=== PATIENT | female | born 1980 | race Two or more races ===

== ENCOUNTER 2017-10-06 09:27 | Emergency (ER) | payer MEDICAID ==
[~2017-10-06] VITALS: Ht 154.9 cm; Wt 76.7 kg
[~2017-10-06 09:27] MED LIST: IBUPROFEN600 MG ORAL; NKM
--- NOTE | 2017-10-06 11:38 | Emergency Room Report ---
History of Present Illness General Chief Complaint: Pain Source: Patient Present Illness HPI This patient states that she had done her nails and neuts that over the past day has had some swelling and redness around the cuticle of her left ring finger. She is also had some redness of the pad of the finger. She denies fever or chills. She states that it is tender to the touch. She has no other complaints. Allergies: Coded Allergies: No Known Allergies (Unverified , 10/19/15) Patient History Past Medical History: none, see triage record Social History: Denies: smoking, alcohol use, drug use Last Menstrual Period: 09/28/2017 Reviewed Nursing Documentation: PMH: Agreed, PSxH: Agreed Nursing Documentation-PMH Past Medical History: No Stated History Review of Systems All Other Systems: negative except mentioned in HPI Physical Exam Vital Signs Date Time Temp Pulse Resp B/P (MAP) Pulse Ox O2 Delivery O2 Flow Rate FiO2 10/06/17 09:37 98.5 76 16 128/82 97 Room Air 98.4 Sp02 EP Interpretation: reviewed, normal General Appearance: no apparent distress, alert, GCS 15, non-toxic Head: normocephalic, atraumatic Eyes: bilateral eye normal inspection, bilateral eye PERRL ENT: hearing grossly normal, normal pharynx, no angioedema, normal voice Neck: full range of motion, supple/symm/no masses Respiratory: no respiratory distress, no retraction, no accessory muscle use, speaking full sentences Rectal: deferred Musculoskeletal: gait/station normal, normal range of motion, other - L. ring finger with erythema medially with some paronychial fluctuance. Erythema but no fluctuance in finger pad. Neurologic: alert, oriented x3, responsive, motor strength/tone normal, sensory intact, speech normal Psychiatric: judgement/insight normal, memory normal, mood/affect normal, no suicidal/homicidal ideation Skin: well hydrated, other - See MSK exam Procedures Additional Procedure Procedure Narrative Drainage of paronychia left ring finger: The cuticle fold was lifted and incised using a small scissor with expression of purulent discharge. The area was then placed in warm water and irrigated. No complications. Medical Decision Making Diagnostic Impression: Primary Impression: Paronychia ER Course The patient has a small paronychia. The paronychia was drained without complication or incident. See my procedure note. Given the erythema on the finger pad, I will go ahead and give a course of oral antibiotics. There is no evidence of felon at this time. The patient was instructed to follow-up with her primary care physician. The patient was given close return precautions and follow-up instructions. Last Vital Signs Date Time Temp Pulse Resp B/P (MAP) Pulse Ox O2 Delivery O2 Flow Rate FiO2 10/06/17 09:37 98.5 76 16 128/82 97 Room Air 98.4 Status: improved Disposition: HOME, SELF-CARE Condition: Improved Referrals: NON PHYSICIAN (PCP) CHACE MERRITT D.O. Oct 06, 2017 11:38
[2017-10-06] MEDS ORDERED: KEFLEX500 MG ORAL (11:39)
[2017-10-06 12:00] VITALS: BP 119/77
== END 2017-10-06 12:00 | disposition home or self-care (01) ==
LOC: EMR 10:17
DX: L03.012 Cellulitis of left finger (principal)
CPT/HCPCS: 10060; 99283

== ENCOUNTER 2018-09-25 20:49 | Emergency (ER) | payer MEDICAID ==
[~2018-09-25] VITALS: Ht 154.9 cm; Wt 76.2 kg
[~2018-09-25 20:49] MED LIST changes: +BACITRACIN15 GM TOPIC; +BACTRIM DS TAB1 EAC1 ORAL; +KEFLEX500 MG ORAL
--- NOTE | 2018-09-25 21:00 | NUR ---
ED Nurse Note: Patient walk in c/o abcess follow up in vaginal area. Patient had it drained at [facility] 2 days ago. Patient states there is packing in the wound.
[2018-09-25 21:06] VITALS: BP 123/71
[2018-09-25 21:42] VITALS: BP 123/71
--- NOTE | 2018-09-25 21:42 | NUR ---
ER DISCHARGE NOTE: Patient is cleared to be discharged per ERMD, pt is aox4, on room air, with stable vital signs. pt was given dc instructions, pt was able to verbalize understanding, pt id band removed. pt is able to ambulate with steady gait. pt took all belongings.
--- NOTE | 2018-09-25 22:35 | Emergency Room Report ---
History of Present Illness General Chief Complaint: Wound Recheck/Suture Removal Source: Patient Present Illness HPI 38-year-old female presents ED for evaluation. Patient is here for wound check. Status post I and D of Bartholin gland cyst 2 days ago. Had word catheter in place. Is here for wound check. States pain is overall improved. States she is compliant with her antibiotics. Denies fevers or chills. Denies pain. No other aggravating relieving factors. Denies any other associated symptoms Allergies: Coded Allergies: No Known Allergies (Unverified , 10/19/15) Patient History Past Medical History: none Past Surgical History: none - ` Pertinent Family History: none Social History: Denies: smoking, alcohol use, drug use Last Menstrual Period: 09/11/2018 Now: No Immunizations: UTD Reviewed Nursing Documentation: PMH: Agreed; PSxH: Agreed Nursing Documentation-PMH Past Medical History: No Stated History Review of Systems All Other Systems: negative except mentioned in HPI Physical Exam Vital Signs Date Time Temp Pulse Resp B/P (MAP) Pulse Ox O2 Delivery O2 Flow Rate FiO2 09/25/18 20:53 98.6 96 16 123/71 97 Room Air Sp02 EP Interpretation: reviewed, normal General Appearance: no apparent distress, alert, GCS 15, non-toxic Head: normocephalic Eyes: bilateral eye normal inspection, bilateral eye PERRL ENT: normal ENT inspection Neck: normal inspection Respiratory: normal inspection Cardiovascular #1: normal inspection Gastrointestinal: normal inspection Rectal: deferred Genitourinary: no CVA tenderness, other - eyeglass frames polisher present. word catheter not in place. minimal erythema/induration to labial area. no discharge Musculoskeletal: normal inspection Neurologic: alert, oriented x3, responsive, motor strength/tone normal, sensory intact, speech normal Psychiatric: normal inspection Skin: normal inspection Lymphatic: normal inspection Medical Decision Making Diagnostic Impression: Primary Impression: Encounter for wound re-check Additional Impression: Bartholin cyst ER Course Hospital Course 38-year-old F presents to ED for wound check. s/p I&D bartholin gland cyst Clinical course Patient placed on stretcher. Rn Tele present. On exam there appears to be improved erythema induration to the labial area. No fluctuance or discharge. word catheter is not visualized - patient states she noted fell out earlier today Discussed findings with patient. Safe for discharge. Patient follow up. Continue antibiotics. Warm soaks Patient states she has an appointment with her [employer] WORKER for follow-up Diagnosis - encounter for wound re-check, bartholin gland cyst Stable and discharged to home. continue abx as directed. Followup with obgyn. Return to ED if any signs of infection develop Last Vital Signs Date Time Temp Pulse Resp B/P (MAP) Pulse Ox O2 Delivery O2 Flow Rate FiO2 09/25/18 21:42 98.6 96 16 123/71 97 Room Air Status: improved Disposition: HOME, SELF-CARE Condition: Stable Referrals: [facility] DAVE MATHEWS (PCP) Patient Instructions: Bartholin Cyst or Abscess, [id number] Additional Instructions: continue your antibiotics as directed. warm soaks in tub. followup with OBGYN. Rayo Holley MD Sep 25, 2018 22:35
== END 2018-09-25 21:42 | disposition home or self-care (01) ==
LOC: EMR 21:08
DX: Z48.01 Encounter for change or removal of surgical wound dressing (principal); N75.0 Cyst of Bartholin's gland
CPT/HCPCS: 99281

== ENCOUNTER 2019-05-21 19:22 | Emergency (ER) | payer MEDICAID ==
[~2019-05-21] VITALS: Ht 154.9 cm; Wt 75.7 kg
--- NOTE | 2019-05-21 19:34 | NUR ---
ED Nurse Note: pt presents to ED with a boil on top of her head on the R side. it is red and measures about 1.5 cm X 1 cm. pt reports trying to pop it and that white fluid came out of it. pt reports the px being 7/10 when it's at it's worse. the pain radiates to her ears and worsens when she touches it or moves her forehread
[2019-05-21 19:36] VITALS: BP 117/80
--- NOTE | 2019-05-21 19:42 | Emergency Room Report ---
History of Present Illness General Chief Complaint: Skin Rash/Abscess Source: Patient Present Illness HPI 38-year-old female with no symptom past medical history here complaining of pain in her scalp x2 days. Rating the pain 5 out of 10 without radiation denying tingling and numbness. Denies any pus drainage from the affected area. A small cyst is noted on the frontal lobe. No pus drainage is noted. Denies fever and chills, chest pain, shortness of breath, palpitation or other associated symptoms. Patient is up-to-date with tetanus shot. Has not taken medication for symptom relief. Patient is not a diabetic. Allergies: Coded Allergies: No Known Allergies (Unverified , 10/19/15) Patient History Past Medical History: see triage record Past Surgical History: unable to obtain Pertinent Family History: none Last Menstrual Period: 05/18/19 Now: No Immunizations: UTD Reviewed Nursing Documentation: PMH: Agreed; PSxH: Agreed Nursing Documentation-PMH Past Medical History: No Stated History Review of Systems All Other Systems: negative except mentioned in HPI Physical Exam Vital Signs Date Time Temp Pulse Resp B/P (MAP) Pulse Ox O2 Delivery O2 Flow Rate FiO2 05/21/19 19:24 98.8 85 16 117/80 (92) 99 Room Air Sp02 EP Interpretation: reviewed, normal General Appearance: no apparent distress, alert, GCS 15, non-toxic Head: normocephalic, atraumatic, other - Cyst noted on the frontal lobe Eyes: bilateral eye normal inspection, bilateral eye PERRL ENT: hearing grossly normal, normal pharynx, no angioedema, normal voice Neck: full range of motion, supple/symm/no masses Respiratory: chest non-tender, lungs clear, normal breath sounds, no rhonchi, no wheezing, speaking full sentences Cardiovascular #1: regular rate, rhythm, no edema, no murmur, normal capillary refill Gastrointestinal: normal bowel sounds, non tender, soft, non-distended, no guarding, no rebound Genitourinary: no CVA tenderness Musculoskeletal: back normal, gait/station normal, normal range of motion, non- tender Neurologic: alert, oriented x3, responsive, motor strength/tone normal, sensory intact, speech normal Psychiatric: judgement/insight normal, memory normal, mood/affect normal, no suicidal/homicidal ideation Skin: other - cyst frontal lobe Lymphatic: normal inspection, no adenopathy Medical Decision Making PA Attestation Diagnosis and treatment plans were reviewed and discussed with my supervising physician Dr. Rosado Diagnostic Impression: Primary Impression: Scalp cyst ER Course 38-year-old female with no symptom past medical history here complaining of pain in her scalp x2 days. Rating the pain 5 out of 10 without radiation denying tingling and numbness. Denies any pus drainage from the affected area. A small cyst is noted on the frontal lobe. No pus drainage is noted. Denies fever and chills, chest pain, shortness of breath, palpitation or other associated symptoms. Patient is up-to-date with tetanus shot. Has not taken medication for symptom relief. Patient is not a diabetic. Ddx considered but are not limited to : Cyst, folliculitis, superficial infection, abscess Vital signs: are WNL, pt. is afebrile H&PE are most consistent with:cyst scalp ORDERS: Keflex, ibuprofen ED INTERVENTIONS: None required at this time. DISCHARGE: At this time pt. is stable for d/c to home. Will provide printed patient care instructions, and any necessary prescriptions. Care plan and follow up instructions have been discussed with the patient prior to discharge. Avoid irritating the area as it may turn into an abscess follow-up with your primary care provider if worsening symptoms return to the emergency room Last Vital Signs Date Time Temp Pulse Resp B/P (MAP) Pulse Ox O2 Delivery O2 Flow Rate FiO2 05/21/19 19:36 98.8 16 117/80 99 Room Air 05/21/19 19:24 85 Disposition: HOME, SELF-CARE Condition: Stable Scripts Ibuprofen* (MOTRIN*) 600 Mg Tablet 600 MG ORAL Q6H PRN for For Pain, #30 TAB Prov: Alejandra Steve 05/21/19 Cephalexin* (KEFLEX*) 500 Mg Capsule 500 MG ORAL EVERY 6 HOURS for 7 Days, #28 CAP Prov: Alejandra Steve 05/21/19 Patient Instructions: Abscess Additional Instructions: Take medication as directed, follow-up with your primary care provider. At this time you have not yet developed abscess need to start antibiotics as soon as possible. Avoid irritation of the area. If worsening symptoms return to the emergency room. Alejandra Steve May 21, 2019 19:42
[2019-05-21] MEDS ORDERED: IBUPROFEN600 MG ORAL (19:45)
[2019-05-21] MEDS ORDERED: CEPHALEXIN500 MG ORAL (19:45)
--- NOTE | 2019-05-21 19:47 | NUR ---
ED Nurse Note: Pt cleared by health care Provider for discharge. DC instructions/prescription was given and explained to pt and verbalized understanding of teachings. All medical deviecs such as ID band removed. Pt is AAO x4, ambulatory and left with all personal belongings.
[2019-05-21 19:48] VITALS: BP 117/80
== END 2019-05-21 19:50 | disposition home or self-care (01) ==
LOC: EMR 19:47
DX: L72.8 Other follicular cysts of the skin and subcutaneous tissue (principal)
CPT/HCPCS: 99282

== ENCOUNTER 2020-01-17 20:32 | Inpatient (IN) | payer MEDICAID ==
[~2020-01-17] VITALS: Ht 154.9 cm; Wt 70.5 kg
[~2020-01-17 20:32] MED LIST changes: +CEPHALEXIN500 MG ORAL
--- NOTE | 2020-01-17 20:43 | NUR ---
ED Nurse Note: Patient walked in from home d/t SOB. Per patient, she was at the hospital 4 days ago for cough and a throat infection, she was prescribed amoxicillin and a cough syrup. Patient aao x 4 and ambulatory with steady gait. VSS, temperature 100.7 F oral. Patient placed on personnel monitor. No acute distress noted during assessment.
[2020-01-17 20:44] VITALS: BP 95/54
[2020-01-17] MEDS ORDERED: Acetaminophen 500mg (ES) tab ORAL ONE (21:00)
--- NOTE | 2020-01-17 21:22 | NUR ---
ED Nurse Note: Xray at bedside
--- NOTE | 2020-01-17 21:32 | NUR ---
ED Nurse Note: Per DARYL, okay if patient is unable to provide urine sample.
[2020-01-17 21:38] LABS: HEMATOCRIT 25.5 % (37.0-47.0); HEMOGLOBIN 7.6 G/DL (12.0-16.0); MEAN CORPUSCULAR VOLUME 57 FL (80-99); PLATELET COUNT 336 K/UL (150-450); RED CELL DISTRIBUTION WIDTH 18.6 % (11.6-14.8)
[2020-01-17 21:39] LABS: BASOPHILS % (AUTO) 0.1 % (0.0-2.0); MONOCYTES % (AUTO) 2.7 % (1.0-10.0); NEUTROPHILS % (AUTO) 88.1 % (45.0-75.0)
[2020-01-17] MEDS ORDERED: Azithromycin 500 MG in NS 275 ML IV ONE (21:45)
[2020-01-17] MEDS ORDERED: cefTRIAXone 1 GM in NS 55 ML IVPB ONE (21:45)
[2020-01-17 21:48] LABS: ANION GAP 12 mmol/L (5-15); BLOOD UREA NITROGEN 8 mg/dL (7-18); CALCIUM 7.6 MG/DL (8.5-10.1); CARBON DIOXIDE 23 MMOL/L (21-32); CHLORIDE 96 MMOL/L (98-107); CREATININE 0.8 MG/DL (0.55-1.30); POTASSIUM 3.4 MMOL/L (3.5-5.1); SODIUM 131 MMOL/L (136-145)
[2020-01-17 21:53] LABS: ALANINE AMINOTRANSFERASE 19 U/L (12-78); ALBUMIN 3.3 G/DL (3.4-5.0); ALBUMIN/GLOBULIN RATIO 0.8 (1.0-2.7); ALKALINE PHOSPHATASE 88 U/L (46-116); ASPARTATE AMINO TRANSFERASE 39 U/L (15-37); BILIRUBIN,TOTAL 0.7 MG/DL (0.2-1.0)
--- NOTE | 2020-01-17 22:04 | NUR ---
ED Nurse Note: COVID swab collected and sent to lab
--- NOTE | 2020-01-17 22:10 | Emergency Room Report ---
History of Present Illness General Chief Complaint: Dyspnea/Respdistress Source: Patient (Rayo Holley MD) Present Illness HPI 39-year-old female presents ED for fever, cough, weakness. Started 4 days ago. States she went to a clinic and was told she had strep throat. Was given antibiotics. States that she is feeling worse. States she has a cough. Productive with yellowish phlegm. Febrile in triage. States she feels weak. States she feels short of breath. No other aggravating relieving factors. 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 (Rayo Holley MD) Patient History Past Medical History: none Past Surgical History: none Pertinent Family History: none Social History: Denies: smoking, alcohol use, drug use Now: No Immunizations: UTD Reviewed Nursing Documentation: PMH: Agreed; PSxH: Agreed (Rayo Holley MD) Nursing Documentation-PMH Past Medical History: No Stated History (Rayo Holley MD) Review of Systems All Other Systems: negative except mentioned in HPI (Rayo Holley MD) Physical Exam Vital Signs Date Time Temp Pulse Resp B/P (MAP) Pulse Ox O2 Delivery O2 Flow Rate FiO2 01/17/20 20:36 100.8 101 22 98/40 (59) 100 Room Air Sp02 EP Interpretation: reviewed, normal General Appearance: no apparent distress, alert, GCS 15, non-toxic Head: normocephalic, atraumatic Eyes: bilateral eye normal inspection, bilateral eye PERRL ENT: hearing grossly normal, normal pharynx, no angioedema, normal voice Neck: full range of motion, supple/symm/no masses Respiratory: chest non-tender, crackles, speaking full sentences Cardiovascular #1: regular rate, rhythm, no edema Cardiovascular #2: 2+ carotid (R), 2+ carotid (L), 2+ radial (R), 2+ radial (L) , 2+ dorsalis pedis (R), 2+ dorsalis pedis (L) Gastrointestinal: normal bowel sounds, non tender, soft, non-distended, no guarding, no rebound Rectal: deferred Genitourinary: normal inspection, no CVA tenderness Musculoskeletal: back normal, normal range of motion, gait/station normal, non- tender Neurologic: alert, motor strength/tone normal, oriented x3, sensory intact, responsive, speech normal Psychiatric: judgement/insight normal, memory normal, mood/affect normal, no suicidal/homicidal ideation Reflexes: 3+ bicep (R), 3+ bicep (L), 3+ tricep (R), 3+ tricep (L), 3+ knee (R) , 3+ knee (L) Skin: other - see nursing skin notes Lymphatic: no adenopathy (Rayo Holley MD) Medical Decision Making Diagnostic Impression: Primary Impression: Pneumonia Qualified Codes: J18.9 - Pneumonia, unspecified organism Additional Impressions: Suspected COVID-19 virus infection Elevated d-dimer Elevated C-reactive protein Anemia Qualified Codes: D64.9 - Anemia, unspecified Labs Test 01/17/20 21:22 White Blood Count 14.0 K/UL (4.8-10.8) Red Blood Count 4.50 M/UL (4.20-5.40) Hemoglobin 7.6 G/DL (12.0-16.0) Hematocrit 25.5 % (37.0-47.0) Mean Corpuscular Volume 57 FL (80-99) Mean Corpuscular Hemoglobin 16.8 PG (27.0-31.0) Mean Corpuscular Hemoglobin Concent 29.7 G/DL (32.0-36.0) Red Cell Distribution Width 18.6 % (11.6-14.8) Platelet Count 336 K/UL (150-450) Mean Platelet Volume 7.2 FL (6.5-10.1) Neutrophils (%) (Auto) 88.1 % (45.0-75.0) Lymphocytes (%) (Auto) 9.0 % (20.0-45.0) Monocytes (%) (Auto) 2.7 % (1.0-10.0) Eosinophils (%) (Auto) 0.0 % (0.0-3.0) Basophils (%) (Auto) 0.1 % (0.0-2.0) Sodium Level 131 MMOL/L (136-145) Potassium Level 3.4 MMOL/L (3.5-5.1) Chloride Level 96 MMOL/L (98-107) Carbon Dioxide Level 23 MMOL/L (21-32) Anion Gap 12 mmol/L (5-15) Blood Urea Nitrogen 8 mg/dL (7-18) Creatinine 0.8 MG/DL (0.55-1.30) Estimat Glomerular Filtration Rate > 60 mL/min (>60) Glucose Level 104 MG/DL (74-106) Calcium Level 7.6 MG/DL (8.5-10.1) Total Bilirubin 0.7 MG/DL (0.2-1.0) Aspartate Amino Transf (AST/SGOT) 39 U/L (15-37) Alanine Aminotransferase (ALT/SGPT) 19 U/L (12-78) Alkaline Phosphatase 88 U/L (46-116) Total Protein 7.6 G/DL (6.4-8.2) Albumin 3.3 G/DL (3.4-5.0) Globulin 4.3 g/dL Albumin/Globulin Ratio 0.8 (1.0-2.7) (Rayo Holley MD) ER Course Please see above note. Inflammatory markers added. Based on Inc. increased d-dimer and other inflammatory markers Lovenox and dexamethasone added. Discussed probable diagnosis with patient. 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 While she is working she has not been using PPE. Her who is diabetic is also ill at this time. She has been social isolating from the rest of her family however she has been in contact with her who also has high risk for 4 developing COVID-19 disease. Clinically based on inflammatory markers high suspicion for COVID-19 pneumonia in this patient. Patient somewhat improved after Lovenox and dexamethasone. Patient not requiring supplemental oxygen at this time. Laboratory Tests Test 01/17/20 21:22 01/18/20 05:00 01/18/20 05:30 White Blood Count 14.0 K/UL (4.8-10.8) H 12.9 K/UL (4.8-10.8) H Red Blood Count 4.50 M/UL (4.20-5.40) 4.11 M/UL (4.20-5.40) L Hemoglobin 7.6 G/DL (12.0-16.0) L 6.9 G/DL (12.0-16.0) *L Hematocrit 25.5 % (37.0-47.0) L 24.5 % (37.0-47.0) L Mean Corpuscular Volume 57 FL (80-99) L 60 FL (80-99) L Mean Corpuscular Hemoglobin 16.8 PG (27.0-31.0) L 16.9 PG (27.0-31.0) L Mean Corpuscular Hemoglobin Concent 29.7 G/DL (32.0-36.0) L 28.3 G/DL (32.0-36.0) L Red Cell Distribution Width 18.6 % (11.6-14.8) H 17.6 % (11.6-14.8) H Platelet Count 336 K/UL (150-450) 288 K/UL (150-450) Mean Platelet Volume 7.2 FL (6.5-10.1) 6.8 FL (6.5-10.1) Neutrophils (%) (Auto) 88.1 % (45.0-75.0) H % (45.0-75.0) Lymphocytes (%) (Auto) 9.0 % (20.0-45.0) L % (20.0-45.0) Monocytes (%) (Auto) 2.7 % (1.0-10.0) % (1.0-10.0) Eosinophils (%) (Auto) 0.0 % (0.0-3.0) % (0.0-3.0) Basophils (%) (Auto) 0.1 % (0.0-2.0) % (0.0-2.0) Prothrombin Time 11.4 SEC (9.30-11.50) Prothrombin Time INR 1.0 (0.9-1.1) Activated Partial Thromboplast Time 28 SEC (23-33) D-Dimer 0.72 mg/L FEU (0.00-0.49) H Sodium Level 131 MMOL/L (136-145) L 136 MMOL/L (136-145) Potassium Level 3.4 MMOL/L (3.5-5.1) L 3.5 MMOL/L (3.5-5.1) Chloride Level 96 MMOL/L (98-107) L 103 MMOL/L (98-107) Carbon Dioxide Level 23 MMOL/L (21-32) 21 MMOL/L (21-32) Anion Gap 12 mmol/L (5-15) 12 mmol/L (5-15) Blood Urea Nitrogen 8 mg/dL (7-18) 5 mg/dL (7-18) L Creatinine 0.8 MG/DL (0.55-1.30) 0.6 MG/DL (0.55-1.30) Estimated Glomerular Filtration Rate > 60 mL/min (>60) > 60 mL/min (>60) Glucose Level 104 MG/DL (74-106) 136 MG/DL (74-106) H Lactic Acid Level 1.40 mmol/L (0.4-2.0) Calcium Level 7.6 MG/DL (8.5-10.1) L 7.1 MG/DL (8.5-10.1) L Ferritin 41 NG/ML (8-388) Total Bilirubin 0.7 MG/DL (0.2-1.0) Aspartate Amino Transferase (AST) 39 U/L (15-37) H Alanine Aminotransferase (ALT) 19 U/L (12-78) Alkaline Phosphatase 88 U/L (46-116) Lactate Dehydrogenase 586 U/L (81-234) H Troponin I 0.000 ng/mL (0.000-0.056) C-Reactive Protein, Quantitative 42.6 mg/dL (0.00-0.90) H Pro-B-Type Natriuretic Peptide 45 pg/mL (0-125) Total Protein 7.6 G/DL (6.4-8.2) Albumin 3.3 G/DL (3.4-5.0) L Globulin 4.3 g/dL Albumin/Globulin Ratio 0.8 (1.0-2.7) L Neutrophils % (Manual) Pending Lymphocytes % (Manual) Pending Platelet Estimate Pending Platelet Morphology Pending Urine Color Pale yellow Urine Appearance Clear Urine pH 6.5 (4.5-8.0) Urine Specific [place] 1.005 (1.005-1.035) Urine Protein Negative (NEGATIVE) Urine Glucose (UA) Negative (NEGATIVE) Urine Ketones 3+ (NEGATIVE) H Urine Blood Negative (NEGATIVE) Urine Nitrite Negative (NEGATIVE) Urine Bilirubin Negative (NEGATIVE) Urine Urobilinogen Normal MG/DL (0.0-1.0) Urine Leukocyte Esterase Negative (NEGATIVE) (Bossman Scherer MD) Rhythm Strip Diag. Results EP Interpretation: yes Rhythm: NSR, no PVC's, no ectopy (Bossman Scherer MD) Chest X-Ray Diagnostic Results Chest X-Ray Diagnostic Results : Chest X-Ray Ordered: Yes # of Views/Limited/Complete: 1 View Indication: Shortness of Breath EP Interpretation: Yes Interpretation: no effusion, no pneumothorax, other - bialteral patchy opacities Impression: Other - Pneumonia Electronically Signed by: Electronically signed by Rayo Holley MD (Rayo Holley MD) Chest X-Ray Diagnostic Results : Chest X-Ray Ordered: Yes Indication: Shortness of Breath EP Interpretation: Yes Interpretation: no effusion, no pneumothorax, other - Bilateral infiltrates greater on left Impression: Other Electronically Signed by: Electronically signed by Bossman Scherer MD (Bossman Scherer MD) Last Vital Signs Date Time Temp Pulse Resp B/P (MAP) Pulse Ox O2 Delivery O2 Flow Rate FiO2 01/17/20 20:44 104 24 Room Air 01/17/20 20:44 100.7 95/54 98 Status: improved (Rayo Holley MD) Last Vital Signs Date Time Temp Pulse Resp B/P (MAP) Pulse Ox O2 Delivery O2 Flow Rate FiO2 01/18/20 04:00 98.2 82 21 112/63 (79) 97 01/18/20 01:30 Room Air Status: improved (Bossman Scherer MD) Disposition: ADMITTED INPATIENT Condition: Serious Referrals: NON PHYSICIAN (PCP) Rayo Holley MD Jan 17, 2020 22:10 Bossman Scherer MD Jan 17, 2020 22:59
[2020-01-17] MEDS ORDERED: Morphine Sulfate 2mg/ml Inj(IV/IM USE ONLY) IVP PRN (22:30)
--- NOTE | 2020-01-17 22:40 | NUR ---
ED Nurse Note: Belongings list completed.
--- NOTE | 2020-01-17 22:48 | NUR ---
ED Nurse Note: Report given to PRAVEEN Monk.
[2020-01-17] MEDS ORDERED: Enoxaparin 100mg Inj SUBQ SCH (23:00)
--- NOTE | 2020-01-17 23:10 | NUR ---
TRANSFER TO FLOOR: Patient transferred to med surg as ordered, per ERMD. Report given to Lacho RN. Patient transported via gurney in stable condition accompanied by technology trainer and RN.
--- NOTE | 2020-01-17 23:30 | NUR ---
NURSE NOTES: Admitted from ER via [facility] is a 39 years old female, awake, alert and oriented x4. Transferred to bed and made comfortable. Bed locked and placed on it's lowest position. Call light within reach. oriented pt. about hospital policies and verbalized understanding. Denies any pain at this time. Noted to have unproductive cough at times. Able to ambulate for bathroom use and with steady gait. Verified admission orders with Dr. Irvin. Will continue to monitor.
[2020-01-18 00:10] VITALS: BP 113/69
[2020-01-18] MEDS ORDERED: Morphine Sulfate 2mg/ml Inj(IV/IM USE ONLY) IVP PRN ×2 (00:30→03:00)
[2020-01-18] MEDS: D5 1/2NS 1,000 ML IV SCH ×2 (03:00→21:37)
[2020-01-18] MEDS ORDERED: Albuterol/Ipratropium 3ml neb HHN PRN (03:00)
[2020-01-18 04:00] VITALS: BP 112/63
[2020-01-18 05:50] LABS: HEMATOCRIT 24.5 % (37.0-47.0); MEAN CORPUSCULAR VOLUME 60 FL (80-99); PLATELET COUNT 288 K/UL (150-450); RED BLOOD COUNT 4.11 M/UL (4.20-5.40); RED CELL DISTRIBUTION WIDTH 17.6 % (11.6-14.8); WHITE BLOOD COUNT 12.9 K/UL (4.8-10.8)
[2020-01-18 06:05] LABS: APPEARANCE,URINE CLEAR; BILIRUBIN, URINE NEGATIVE (NEGATIVE); COLOR,URINE PALE YELLOW; GLUCOSE, URINE (UA) NEGATIVE (NEGATIVE); KETONES,URINE 3+ (NEGATIVE); LEUKOCYTE ESTERASE ,URINE NEGATIVE (NEGATIVE); NITRITE,URINE NEGATIVE (NEGATIVE); PH,URINE 6.5 (4.5-8.0); UROBILINOGEN,URINE NORMAL MG/DL (0.0-1.0)
[2020-01-18 06:09] LABS: ANION GAP 12 mmol/L (5-15); BLOOD UREA NITROGEN 5 mg/dL (7-18); CALCIUM 7.1 MG/DL (8.5-10.1); CARBON DIOXIDE 21 MMOL/L (21-32); CHLORIDE 103 MMOL/L (98-107); CREATININE 0.6 MG/DL (0.55-1.30); POTASSIUM 3.5 MMOL/L (3.5-5.1); SODIUM 136 MMOL/L (136-145)
[2020-01-18 06:11] LABS: HEMOGLOBIN 6.9 G/DL (12.0-16.0)
[2020-01-18 06:24] LABS: PROTEIN,URINE NEGATIVE (NEGATIVE)
--- NOTE | 2020-01-18 07:30 | NUR ---
NURSE NOTES: Report given to Nicolasa MORTON.
[2020-01-18 08:00] VITALS: BP_SYST 103; BP_SYST 112; BP_DIAS 63; BP_DIAS 71
--- NOTE | 2020-01-18 08:10 | NUR ---
NURSE NOTES: Patient awake and alert and oriented,respirations are unlabored,IV fluids infusing as ordered.Patient sitting up,in bed and eating breakfast.No complaints at this time.Call light within reach.
--- NOTE | 2020-01-18 10:11 | Diagnostic Imaging Report ---
Procedure: XRAY Chest 1v Reason for study: Reason For Exam: COUGH Comparison films: None. FINDINGS: A single one view chest is obtained. Vascularity is normal. There are basilar infiltrates left greater than right. Cardiac and mediastinal silhouette are within normal limits. CP angles are sharp. The bony thorax appear unremarkable. IMPRESSION: Basilar infiltrates left greater than right.
--- NOTE | 2020-01-18 10:17 | NUR ---
NURSE NOTES: Notified MD Irvin about hemoglobin value of 6.9. Received orders for repeat stat CBC and collect OB Stool X3. He stated he will notify MD Pascual.
--- NOTE | 2020-01-18 11:11 | NUR ---
*-* INSURANCE *-* ALL AVAILABLE CLINICALS HAVE BEEN FAXED TO: ILANA HENDRICKS [phone] F:[phone] *-* PT CAPITATED TO [facility] *-*
[2020-01-18 11:13] LABS: HEMATOCRIT 28.6 % (37.0-47.0); HEMOGLOBIN 7.9 G/DL (12.0-16.0); MEAN CORPUSCULAR VOLUME 60 FL (80-99); PLATELET COUNT 341 K/UL (150-450); RED BLOOD COUNT 4.73 M/UL (4.20-5.40); RED CELL DISTRIBUTION WIDTH 18.4 % (11.6-14.8); WHITE BLOOD COUNT 15.9 K/UL (4.8-10.8)
[2020-01-18 12:00] VITALS: BP 119/64
--- NOTE | 2020-01-18 12:29 | NUR ---
CASE MANAGEMENT:INITIAL REVIEW 39 YR OLD FEMALE FROM HOME CC;DYSPNEA. RESPIRATORY DISTRESS. SI;PNA. SUSPECTED COVID-19. ELEVATED D-DIMER. ELEVATED CRP. 100.8 104 95/54 98% ON RA WBC 14.0 H/H 7.6/25.5 NA 131 K+ 3.4 CA 7.6 AST 39 D-DIMER 0.72 UA+ KETONES CXR ~ Basilar infiltrates left greater than right. IS;IVF NS APAP PO ZITHROMAX IV ROCEPHIN IV COVID-19 PCR ~ RESULT PENDING AIRBORNE/DROPLET/CONTACT ISOLATION PRECAUTIONS ADMITTED TO MED SURG MED SURG STATUS DCP;PATIENT IS FROM HOME Addendum: 01/18/20 at 1242 by VANESSA JEROME LVN LVN CRP 42.6 LDH 586
--- NOTE | 2020-01-18 12:46 | NUR ---
NURSE NOTES: DR Irvin here and updated on patient latest H and H ,7.9,28.6.
[2020-01-18] MEDS: Azithromycin 250mg tab ORAL SCH (12:51)
[2020-01-18] MEDS ORDERED: cefTRIAXone 1 GM in D5W 55 ML IVPB SCH (13:00)
--- NOTE | 2020-01-18 13:17 | NUR ---
PIPING BLOCKER NOTE CALL MADE TO [facility] @ [phone] EXT 212 IN RE TO [facility]. NO ANSWER AT TIME OF CALL WITH INSTRUCTION TO LEAVE VM. VM LEFT REQUESTING CALL BACK.
--- NOTE | 2020-01-18 14:04 | NUR ---
NURSE NOTES: Patient state she is feeling warm,oral temperature 102.4[patient having a dry hacking cough which patient state she feels short of breath.02 sat 91% on room air.Tylenol will be given as ordered for temperature,will notify DR Irvin and give update on patient condition.
--- NOTE | 2020-01-18 14:33 | NUR ---
NURSE NOTES:\ DR Irvin state to call DR Hernandez ,DR Hernandez called back and update given on patient condition DR Hernandez state will put in order.DR Hernandez aware that patient has PRN nebulizer ,DR loera patient can not be on nebulizer due to patient on PUI status.
[2020-01-18] MEDS: guaiFENesin w/Codeine 5ml Liq ud ORAL PRN ×2 (14:44→21:38)
[2020-01-18 16:00] VITALS: BP 119/64
--- NOTE | 2020-01-18 16:00 | NUR ---
NURSE NOTES: Patient stating she is feeling better temp at this time 99.0 o2 sat between 90-91% on room air .02 applied 2 Liters,N/C.will notify
--- NOTE | 2020-01-18 18:15 | Consultation ---
DATE OF CONSULTATION: 01/18/2020 INFECTIOUS DISEASES CONSULTATION CONSULTING PHYSICIAN: Yosef Bess MD. PRIMARY ATTENDING PHYSICIAN: Louis Irvin DO. This consult is for coverage of Pati Fonseca MD. REASON FOR CONSULTATION: Sepsis, suspected COVID-19 disease. HISTORY OF PRESENT ILLNESS: This is a 39-year-old female admitted yesterday because of fever, coughing, weakness, and shortness of breath. The patient's symptoms started 4 days prior to day of admission. She went to a community clinic and was diagnosed with sore throat, received oral antibiotic, Keflex, without improvement. Last night in the ER, she had fever and was also tachycardic with heart rate up to 104 and leukocytosis of 14,000. The patient states that her was also sick, but he got better with similar symptoms. PAST MEDICAL HISTORY: None significant. ALLERGIES: No known drug allergies. MEDICATIONS: Getting enoxaparin, Zofran, Tylenol, albuterol/ipratropium inhaler, and got a dose of Zithromax and Rocephin in the ER. SOCIAL HISTORY: and has 2 children. Denies alcohol, drug abuse, or smoking. REVIEW OF SYSTEMS: As in history of present illness. PHYSICAL EXAMINATION: VITAL SIGNS: Temperature 97.5, T-max is 100.8, pulse 80, blood pressure 112/63. HEENT: She has pale conjunctivae and has slightly whitish tongue. HEART: Normal rate. LUNGS: Clear. ABDOMEN: Soft. EXTREMITIES: No edema. NEUROLOGIC: Awake, alert, and oriented. LABORATORY DATA: WBC today is 15.9, hemoglobin 7.9, hematocrit 28.6, and platelet is 341,000. Sodium 136, potassium 3.5, chloride 103, bicarb 21, BUN 5, creatinine 0.6, glucose is 136. UA showed 3+ ketones, otherwise negative. Chest x-ray shows bilateral infiltrates, left greater than right. IMPRESSION: 1. Sepsis, leukocytosis, fever, tachycardia. 2. Pneumonia, highly suspected of COVID-19. 3. Severe anemia. RECOMMENDATION: Continue Zithromax and Rocephin. We will follow up COVID-19 test. Consider use of steroid. At the end of my exam, I thank Dr. Louis Irvin for involving me in the care of this patient. Yosef Bess M.D. DR: STERLING JOB#: [id number] CC:
--- NOTE | 2020-01-18 19:26 | NUR ---
HAND-OFF: Report given to Abril MORTON.
--- NOTE | 2020-01-18 19:30 | NUR ---
NURSE NOTES: Patient in bed, awake and alert x4. On nasal cannula 2L with no signs of distress. IV intact and running IVF as ordered. Bed locked and in lowest position. Call light in reach. Will continue to monitor the patient.
[2020-01-18 20:00] VITALS: BP 98/49
--- NOTE | 2020-01-18 20:45 | History and Physical Report ---
DATE OF ADMISSION: 01/17/2020 CHIEF COMPLAINT: Shortness of breath, pneumonia, and anemia. BRIEF HISTORY: This is a 39-year-old female, who lives at home, presented to [facility] last night with history of increased shortness of breath, was known to have pneumonia and possible COVID and admitted to medical floor. Currently, calm, sleeping in bed, not talking much. PAST MEDICAL HISTORY: Anemia. PAST SURGICAL HISTORY: Unknown. MEDICATION: Include enoxaparin, ceftriaxone, azithromycin, Zofran, Tylenol, and morphine. ALLERGIES: Denies. SOCIAL HISTORY: The patient is sleepy. We will obtain her history further later. REVIEW OF SYSTEMS: Unavailable. OBJECTIVE: GENERAL: Lethargic, sleeping in bed, not talking much. VITAL SIGNS: Temperature is 99, pulse 85, respirations 19, and blood pressure 119/64. HEENT: Normocephalic and atraumatic. NECK: Trachea midline. CARDIOVASCULAR: No peripheral edema. LUNGS: Breathing comfortably on room air. ABDOMEN: No apparent wounds. EXTREMITIES: No cyanosis or clubbing. LABORATORY AND DIAGNOSTIC DATA: Labs at this time show white count 15.9, hemoglobin and hematocrit is 7.9 and 28, and platelets 341,000. BMP shows BUN of 5 and glucose 136. Troponin 0.00. Albumin 3.3. Urine, 3+ ketone. ASSESSMENT: 1. Possible pneumonia, suspect COVID. 2. Shortness of breath. 3. Anemia. 4. Malnutrition. PLAN: 1. O2 and pulmonary treatment as needed. 2. Antibiotics per Infectious Disease. 3. Blood pressure and pain control. 4. CBC and BMP in the morning. 5. We will continue to follow this patient. Louis Irvin D.O. DR: ANDER JOB#: [id number] CC:
[2020-01-18] MEDS: Enoxaparin 100mg Inj SUBQ SCH (22:27)
--- NOTE | 2020-01-18 22:30 | Consultation ---
DATE OF CONSULTATION: 01/18/2020 PULMONARY CONSULTATION HISTORY OF PRESENT ILLNESS: This is a 39-year-old female admitted to the hospital with cough and shortness of breath. The patient states she is feeling unwell. She was given antibiotics recently. She reports cough and phlegm. She was noted to be febrile. The patient was seen and worked up in the emergency room. She underwent a laboratory testing which showed leukocytosis. She also had marked anemia. She also underwent imaging studies, which showed bilateral infiltrates suspicious for COVID-19. The patient is admitted to the hospital for subsequent management and care. PAST MEDICAL HISTORY: Notable for no medical illnesses. REVIEW OF SYSTEMS: Denies any headaches, hematemesis, melena, hematochezia, or weight loss. PHYSICAL EXAMINATION: GENERAL: Reveals a 39-year-old female. VITAL SIGNS: Blood pressure 90/40, heart rate is 100, respirations 22, and T-max 101. HEENT: Unremarkable. LUNGS: Clear breath sounds bilaterally. ABDOMEN: Soft. EXTREMITIES: There is no edema. LABORATORY DATA: Lab testing as discussed above. IMPRESSION: 1. Acute anemia. 2. Suspect COVID-19 pneumonia. DISCUSSION: Admit to the hospital. The patient needs IV fluids and antibiotics. She will be a candidate for remdesivir if her COVID-19 test is positive. We will recommend consultation with ID. We will order oxygen and pulmonary hygiene. We will follow carefully. Roe Ling M.D. DR: EDITA JOB#: [id number] CC:
[2020-01-19] VITALS: BP 105/60
[2020-01-19 04:00] VITALS: BP 107/59
--- NOTE | 2020-01-19 05:33 | Pulmonology Progress Note ---
Subjective Interval Events: Seen by ID; no new complaints Constitutional: Reports: no symptoms HEENT: Repors: no symptoms Respiratory: Reports: no symptoms Cardiovascular: Reports: no symptoms Gastrointestinal/Abdominal: Reports: no symptoms Genitourinary: Reports: no symptoms Allergies: Coded Allergies: No Known Allergies (Unverified , 10/19/15) Objective Last 24 Hour Vital Signs Date Time Temp Pulse Resp B/P (MAP) Pulse Ox O2 Delivery O2 Flow Rate FiO2 01/19/20 04:00 102.4 102 18 107/59 (75) 93 01/19/20 00:00 99.0 88 18 105/60 (75) 97 01/18/20 20:39 Room Air 01/18/20 20:00 100.9 90 21 98/49 (65) 94 01/18/20 16:00 99.0 01/18/20 16:00 99.0 96 21 119/64 (82) 93 01/18/20 14:01 102.4 91 01/18/20 12:00 99.5 85 19 119/64 (82) 97 01/18/20 09:00 Room Air 01/18/20 08:00 97.5 80 18 103/71 (82) 95 Intake and Output 01/18/20 01/19/20 19:00 07:00 Intake Total 1120 ml 480 ml Balance 1120 ml 480 ml Intake Oral 700 ml 480 ml IV Total 420 ml # Voids 3 2 General Appearance: no acute distress HEENT: normocephalic Respiratory: chest wall non-tender, lungs clear Cardiovascular: normal peripheral pulses Abdomen: normal bowel sounds Microbiology Date/Time Source Procedure Growth Status 01/17/20 21:22 Blood Blood Culture - Preliminary NO GROWTH AFTER 24 HOURS Resulted 01/17/20 21:07 Blood Blood Culture - Preliminary NO GROWTH AFTER 24 HOURS Resulted Laboratory Tests 01/18/20 11:00: White Blood Count 15.9H, Red Blood Count 4.73, Hemoglobin 7.9L, Hematocrit 28.6L , Mean Corpuscular Volume 60L, Mean Corpuscular Hemoglobin 16.7L, Mean Corpuscular Hemoglobin Concent 27.6L, Red Cell Distribution Width 18.4H, Platelet Count 341, Mean Platelet Volume 8.2, Neutrophils (%) (Auto) , Lymphocytes (%) (Auto) , Monocytes (%) (Auto) , Eosinophils (%) (Auto) , Basophils (%) (Auto) , Differential Total Cells Counted 100, Neutrophils % ( Manual) 94H, Lymphocytes % (Manual) 3L, Monocytes % (Manual) 3, Eosinophils % ( Manual) 0, Basophils % (Manual) 0, Band Neutrophils 0, Platelet Estimate Adequate, Platelet Morphology Normal, Hypochromasia 3+, Anisocytosis 2+, Microcytosis 4+ Current Medications Medications (Trade) Dose Ordered Sig/Bhargav Route PRN Reason Start Time Stop Time Status Last Admin Dose Admin Acetaminophen (Tylenol) 650 mg Q6H PRN ORAL Temp >100.5 01/18/20 07:00 02/17/20 06:59 01/19/20 04:20 Albuterol/ Ipratropium (Albuterol/ Ipratropium) 3 ml Q6H PRN HHN Shortness of Breath 01/18/20 03:00 01/23/20 02:59 Azithromycin (Zithromax) 250 mg DAILY ORAL 01/18/20 12:00 01/25/20 11:59 01/18/20 12:51 Ceftriaxone Sodium 1 gm/ Dextrose 55 ml @ 110 mls/hr Q24H IVPB 01/18/20 13:00 01/25/20 12:59 01/18/20 13:55 Dextrose/Sodium Chloride 1,000 ml @ 60 mls/hr [id number] IV 01/18/20 03:00 02/17/20 02:59 01/18/20 03:00 Enoxaparin Sodium (Lovenox) 100 mg Q24H SUBQ 01/18/20 23:00 04/17/20 22:59 01/18/20 22:27 Guaifenesin/ Codeine Phosphate (Robitussin with codeine) 5 ml Q6H PRN ORAL For Cough 01/18/20 14:45 02/17/20 14:44 01/18/20 21:38 Ondansetron HCl (Zofran) 4 mg Q6H PRN IVP Nausea & Vomiting 01/18/20 07:00 02/17/20 06:59 Assessment/Plan Assessment/Plan IMPRESSION: 1. Acute anemia. 2. Suspect COVID-19 pneumonia. DISCUSSION: Continue IV fluids and antibiotics. Seen by ID. I will order oxygen and pulmonary hygiene. I will follow carefully. Jerald Bess Omar Syed [place] Jan 19, 2020 05:33
[2020-01-19 05:53] LABS: HEMATOCRIT 23.8 % (37.0-47.0); MEAN CORPUSCULAR VOLUME 59 FL (80-99); PLATELET COUNT 339 K/UL (150-450); RED CELL DISTRIBUTION WIDTH 17.8 % (11.6-14.8); WHITE BLOOD COUNT 14.1 K/UL (4.8-10.8)
[2020-01-19 06:42] LABS: ANION GAP 13 mmol/L (5-15); BLOOD UREA NITROGEN 4 mg/dL (7-18); CALCIUM 7.2 MG/DL (8.5-10.1); CARBON DIOXIDE 21 MMOL/L (21-32); CHLORIDE 99 MMOL/L (98-107); CREATININE 0.8 MG/DL (0.55-1.30); SODIUM 133 MMOL/L (136-145)
[2020-01-19 06:44] LABS: HEMOGLOBIN 6.7 G/DL (12.0-16.0)
--- NOTE | 2020-01-19 06:53 | NUR ---
NURSE NOTES: Patient's hgb 6.7; hct 23.8; Potassium 3.[address] Irvin. Awaiting call back.
--- NOTE | 2020-01-19 06:57 | NUR ---
NURSE NOTES: Received callback from Dr. Pascual regarding H&H and potassium. New orders received.
--- NOTE | 2020-01-19 07:28 | NUR ---
NURSE NOTES: Report received from PRAVEEN Samuels. Patient is in bed, no SOB, alert and oriented x 2-3, bed in lowest position with breaks engaged and alarm on, IV line on right AC patent and intact, on droplet and contact isolation for COVID 19, denies any pain or discomfort at this time, will continue to monitor and proceed with plan of care. Call light within reach.
[2020-01-19 08:00] VITALS: BP 104/61
[2020-01-19 08:28] LABS: HEMATOCRIT 23.2 % (37.0-47.0); MEAN CORPUSCULAR VOLUME 59 FL (80-99); PLATELET COUNT 305 K/UL (150-450); RED BLOOD COUNT 3.91 M/UL (4.20-5.40); RED CELL DISTRIBUTION WIDTH 17.8 % (11.6-14.8); WHITE BLOOD COUNT 13.8 K/UL (4.8-10.8)
[2020-01-19 08:31] LABS: HEMOGLOBIN 6.6 G/DL (12.0-16.0)
[2020-01-19 08:50] LABS: ALANINE AMINOTRANSFERASE 13 U/L (12-78); ALBUMIN 2.5 G/DL (3.4-5.0); ALKALINE PHOSPHATASE 69 U/L (46-116); ASPARTATE AMINO TRANSFERASE 34 U/L (15-37); BILIRUBIN,DIRECT 0.2 MG/DL (0.0-0.3); BILIRUBIN,TOTAL 0.4 MG/DL (0.2-1.0); PHOSPHORUS 3.1 MG/DL (2.5-4.9)
--- NOTE | 2020-01-19 09:00 | NUR ---
NURSE NOTES: Relayed recent hgb of 6.[address] Pascual
[2020-01-19 09:05] LABS: FERRITIN 57 NG/ML (8-388)
[2020-01-19 09:17] LABS: % IRON SATURATION 2 % (15-50); IRON 5 ug/dL (50-175); TOTAL IRON BINDING CAPACITY 244 ug/dL (250-450)
[2020-01-19] MEDS: Azithromycin 250mg tab ORAL SCH (09:49)
[2020-01-19] MEDS: D5NS 1,000 ML IV SCH (09:50)
--- NOTE | 2020-01-19 10:14 | NUR ---
EXPERIMENTAL MECHANIC OUTBOARD MOTORS NOTE CALL MADE TO [facility] @ [phone] EXT 212. S/W JAYDA MOSLEY. PER JAYDA, CLINICALS WILL BE REVIEWED BY AND SHE WILL CALL THIS CM BACK TO INFORM IF PATIENT WILL BE TRANSFERRED TO [facility], [facility], OR CARE TO BE CONTINUED INPATIENT AT [facility].
--- NOTE | 2020-01-19 10:42 | Infectious Diseases Prog Note ---
Assessment/Plan Assessment/Plan antibiotics : ceftriaxone, azithromycin A 1. Covid 19 pneumonia on room air, 93 percent saturation 2. leucocytosis improving 3. anemia P 1. start remdesivir EUA discussed with patient benefits outweigh risks and patient consents to it 2. d/c ceftriaxone, azithromycin 3. continue isolation Subjective Respiratory: Reports: shortness of breath, dry cough Gastrointestinal/Abdominal: Denies: nausea, vomiting, diarrhea Musculoskeletal: Reports: pain Allergies: Coded Allergies: No Known Allergies (Unverified , 10/19/15) Objective Vital Signs Last 24 Hour Vital Signs Date Time Temp Pulse Resp B/P (MAP) Pulse Ox O2 Delivery O2 Flow Rate FiO2 01/19/20 09:00 Room Air 01/19/20 08:00 99.1 86 20 104/61 (75) 93 01/19/20 04:50 101.7 01/19/20 04:50 101.7 01/19/20 04:00 102.4 102 18 107/59 (75) 93 01/19/20 00:00 99.0 88 18 105/60 (75) 97 01/18/20 20:39 Room Air 01/18/20 20:00 100.9 90 21 98/49 (65) 94 01/18/20 16:00 99.0 96 21 119/64 (82) 93 01/18/20 14:01 102.4 91 01/18/20 12:00 99.5 85 19 119/64 (82) 97 Height (Feet): 5 Height (Inches): 1.00 Weight (Pounds): 156 Microbiology Date/Time Source Procedure Growth Status 01/17/20 21:22 Blood Blood Culture - Preliminary NO GROWTH AFTER 24 HOURS Resulted 01/17/20 21:07 Blood Blood Culture - Preliminary NO GROWTH AFTER 24 HOURS Resulted 01/17/20 21:59 Nasopharynx Coronavirus COVID-19 PCR (JARROD) - Final Complete Laboratory Tests Test 01/18/20 11:00 01/19/20 04:50 01/19/20 08:15 White Blood Count 15.9 K/UL (4.8-10.8) H 14.1 K/UL (4.8-10.8) H 13.8 K/UL (4.8-10.8) H Red Blood Count 4.73 M/UL (4.20-5.40) 4.00 M/UL (4.20-5.40) L 3.91 M/UL (4.20-5.40) L Hemoglobin 7.9 G/DL (12.0-16.0) L 6.7 G/DL (12.0-16.0) *L 6.6 G/DL (12.0-16.0) *L Hematocrit 28.6 % (37.0-47.0) L 23.8 % (37.0-47.0) L 23.2 % (37.0-47.0) L Mean Corpuscular Volume 60 FL (80-99) L 59 FL (80-99) L 59 FL (80-99) L Mean Corpuscular Hemoglobin 16.7 PG (27.0-31.0) L 16.8 PG (27.0-31.0) L 16.8 PG (27.0-31.0) L Mean Corpuscular Hemoglobin Concent 27.6 G/DL (32.0-36.0) L 28.3 G/DL (32.0-36.0) L 28.3 G/DL (32.0-36.0) L Red Cell Distribution Width 18.4 % (11.6-14.8) H 17.8 % (11.6-14.8) H 17.8 % (11.6-14.8) H Platelet Count 341 K/UL (150-450) 339 K/UL (150-450) 305 K/UL (150-450) Mean Platelet Volume 8.2 FL (6.5-10.1) 8.2 FL (6.5-10.1) 7.2 FL (6.5-10.1) Neutrophils (%) (Auto) % (45.0-75.0) % (45.0-75.0) % (45.0-75.0) Lymphocytes (%) (Auto) % (20.0-45.0) % (20.0-45.0) % (20.0-45.0) Monocytes (%) (Auto) % (1.0-10.0) % (1.0-10.0) % (1.0-10.0) Eosinophils (%) (Auto) % (0.0-3.0) % (0.0-3.0) % (0.0-3.0) Basophils (%) (Auto) % (0.0-2.0) % (0.0-2.0) % (0.0-2.0) Differential Total Cells Counted 100 100 100 Neutrophils % (Manual) 94 % (45-75) H 82 % (45-75) H 91 % (45-75) H Lymphocytes % (Manual) 3 % (20-45) L 17 % (20-45) L 7 % (20-45) L Monocytes % (Manual) 3 % (1-10) 1 % (1-10) 2 % (1-10) Eosinophils % (Manual) 0 % (0-3) 0 % (0-3) 0 % (0-3) Basophils % (Manual) 0 % (0-2) 0 % (0-2) 0 % (0-2) Band Neutrophils 0 % (0-8) 0 % (0-8) 0 % (0-8) Platelet Estimate Adequate Adequate Adequate Platelet Morphology Normal Normal Normal Hypochromasia 3+ 1+ 1+ Anisocytosis 2+ 1+ 1+ Microcytosis 4+ Sodium Level 133 MMOL/L (136-145) L Potassium Level 3.0 MMOL/L (3.5-5.1) L Chloride Level 99 MMOL/L (98-107) Carbon Dioxide Level 21 MMOL/L (21-32) Anion Gap 13 mmol/L (5-15) Blood Urea Nitrogen 4 mg/dL (7-18) L Creatinine 0.8 MG/DL (0.55-1.30) Estimat Glomerular Filtration Rate > 60 mL/min (>60) Glucose Level 106 MG/DL (74-106) Calcium Level 7.2 MG/DL (8.5-10.1) L Uric Acid 2.7 MG/DL (2.6-7.2) Phosphorus Level 3.1 MG/DL (2.5-4.9) Magnesium Level 1.9 MG/DL (1.8-2.4) Iron Level 5 ug/dL (50-175) L Total Iron Binding Capacity 244 ug/dL (250-450) L Percent Iron Saturation 2 % (15-50) L Unsaturated Iron Binding 239 ug/dL (112-346) Ferritin 57 NG/ML (8-388) Total Bilirubin 0.4 MG/DL (0.2-1.0) Direct Bilirubin 0.2 MG/DL (0.0-0.3) Aspartate Amino Transf (AST/SGOT) 34 U/L (15-37) Alanine Aminotransferase (ALT/SGPT) 13 U/L (12-78) Alkaline Phosphatase 69 U/L (46-116) Total Protein 5.9 G/DL (6.4-8.2) L Albumin 2.5 G/DL (3.4-5.0) L Vitamin B12 Level 769 PG/ML (193-986) Folate 12.5 NG/ML (8.6-58.9) Current Medications Medications (Trade) Dose Ordered Sig/Bhargav Route PRN Reason Start Time Stop Time Status Last Admin Dose Admin Acetaminophen (Tylenol) 650 mg Q6H PRN ORAL Temp >100.5 01/18/20 07:00 02/17/20 06:59 01/19/20 04:20 Albuterol/ Ipratropium (Albuterol/ Ipratropium) 3 ml Q6H PRN HHN Shortness of Breath 01/18/20 03:00 01/23/20 02:59 Azithromycin (Zithromax) 250 mg DAILY ORAL 01/18/20 12:00 01/25/20 11:59 01/19/20 09:49 Ceftriaxone Sodium 1 gm/ Dextrose 55 ml @ 110 mls/hr Q24H IVPB 01/18/20 13:00 01/25/20 12:59 01/18/20 13:55 Dextrose/Sodium Chloride 1,000 ml @ 50 mls/hr Q20H IV 01/19/20 09:30 02/18/20 09:29 01/19/20 09:50 Enoxaparin Sodium (Lovenox) 100 mg Q24H SUBQ 01/18/20 23:00 04/17/20 22:59 01/18/20 22:27 Guaifenesin/ Codeine Phosphate (Robitussin with codeine) 5 ml Q6H PRN ORAL For Cough 01/18/20 14:45 02/17/20 14:44 01/18/20 21:38 Ondansetron HCl (Zofran) 4 mg Q6H PRN IVP Nausea & Vomiting 01/18/20 07:00 02/17/20 06:59 Pati Fonseca MD Jan 19, 2020 10:42
--- NOTE | 2020-01-19 10:45 | General Progress Note ---
Assessment/Plan Problem List: (1) Malnutrition ICD Codes: E46 - Unspecified protein-calorie malnutrition SNOMED: 37264747 (2) Suspected COVID-19 virus infection ICD Codes: Z20.828 - Contact with and (suspected) exposure to other viral communicable diseases SNOMED: 529333499 (3) Pneumonia ICD Codes: J18.9 - Pneumonia, unspecified organism SNOMED: 864617776 Qualifiers: Qualified Codes: J18.9 - Pneumonia, unspecified organism (4) Anemia ICD Codes: D64.9 - Anemia, unspecified SNOMED: 609657016 Qualifiers: Qualified Codes: D64.9 - Anemia, unspecified Status: unchanged Assessment/Plan: abx pt diet cbc bmp am Subjective Constitutional: Reports: weakness Allergies: Coded Allergies: No Known Allergies (Unverified , 10/19/15) All Systems: reviewed and negative except above Subjective calm in bed Objective Last 24 Hour Vital Signs Date Time Temp Pulse Resp B/P (MAP) Pulse Ox O2 Delivery O2 Flow Rate FiO2 01/19/20 09:00 Room Air 01/19/20 08:00 99.1 86 20 104/61 (75) 93 01/19/20 04:50 101.7 01/19/20 04:50 101.7 01/19/20 04:00 102.4 102 18 107/59 (75) 93 01/19/20 00:00 99.0 88 18 105/60 (75) 97 01/18/20 20:39 Room Air 01/18/20 20:00 100.9 90 21 98/49 (65) 94 01/18/20 16:00 99.0 96 21 119/64 (82) 93 01/18/20 14:01 102.4 91 01/18/20 12:00 99.5 85 19 119/64 (82) 97 Intake and Output 01/18/20 01/19/20 19:00 07:00 Intake Total 1120 ml 480 ml Balance 1120 ml 480 ml Intake Oral 700 ml 480 ml IV Total 420 ml # Voids 3 2 Laboratory Tests 01/18/20 11:00: White Blood Count 15.9H, Red Blood Count 4.73, Hemoglobin 7.9L, Hematocrit 28.6L , Mean Corpuscular Volume 60L, Mean Corpuscular Hemoglobin 16.7L, Mean Corpuscular Hemoglobin Concent 27.6L, Red Cell Distribution Width 18.4H, Platelet Count 341, Mean Platelet Volume 8.2, Neutrophils (%) (Auto) , Lymphocytes (%) (Auto) , Monocytes (%) (Auto) , Eosinophils (%) (Auto) , Basophils (%) (Auto) , Differential Total Cells Counted 100, Neutrophils % ( Manual) 94H, Lymphocytes % (Manual) 3L, Monocytes % (Manual) 3, Eosinophils % ( Manual) 0, Basophils % (Manual) 0, Band Neutrophils 0, Platelet Estimate Adequate, Platelet Morphology Normal, Hypochromasia 3+, Anisocytosis 2+, Microcytosis 4+ 01/19/20 04:50: White Blood Count 14.1H, Red Blood Count 4.00L, Hemoglobin 6.7*L, Hematocrit 23.8L, Mean Corpuscular Volume 59L, Mean Corpuscular Hemoglobin 16.8L, Mean Corpuscular Hemoglobin Concent 28.3L, Red Cell Distribution Width 17.8H, Platelet Count 339, Mean Platelet Volume 8.2, Neutrophils (%) (Auto) , Lymphocytes (%) (Auto) , Monocytes (%) (Auto) , Eosinophils (%) (Auto) , Basophils (%) (Auto) , Differential Total Cells Counted 100, Neutrophils % ( Manual) 82H, Lymphocytes % (Manual) 17L, Monocytes % (Manual) 1, Eosinophils % ( Manual) 0, Basophils % (Manual) 0, Band Neutrophils 0, Platelet Estimate Adequate, Platelet Morphology Normal, Hypochromasia 1+, Anisocytosis 1+, Sodium Level 133L, Potassium Level 3.0L, Chloride Level 99, Carbon Dioxide Level 21, Anion Gap 13, Blood Urea Nitrogen 4L, Creatinine 0.8, Estimat Glomerular Filtration Rate > 60, Glucose Level 106, Calcium Level 7.2L 01/19/20 08:15: White Blood Count 13.8H, Red Blood Count 3.91L, Hemoglobin 6.6*L, Hematocrit 23.2L, Mean Corpuscular Volume 59L, Mean Corpuscular Hemoglobin 16.8L, Mean Corpuscular Hemoglobin Concent 28.3L, Red Cell Distribution Width 17.8H, Platelet Count 305, Mean Platelet Volume 7.2, Neutrophils (%) (Auto) , Lymphocytes (%) (Auto) , Monocytes (%) (Auto) , Eosinophils (%) (Auto) , Basophils (%) (Auto) , Differential Total Cells Counted 100, Neutrophils % ( Manual) 91H, Lymphocytes % (Manual) 7L, Monocytes % (Manual) 2, Eosinophils % ( Manual) 0, Basophils % (Manual) 0, Band Neutrophils 0, Platelet Estimate Adequate, Platelet Morphology Normal, Hypochromasia 1+, Anisocytosis 1+, Uric Acid 2.7, Phosphorus Level 3.1, Magnesium Level 1.9, Iron Level 5L, Total Iron Binding Capacity 244L, Percent Iron Saturation 2L, Unsaturated Iron Binding 239 , Ferritin 57, Total Bilirubin 0.4, Direct Bilirubin 0.2, Aspartate Amino Transf (AST/SGOT) 34, Alanine Aminotransferase (ALT/SGPT) 13, Alkaline Phosphatase 69, Total Protein 5.9L, Albumin 2.5L, Vitamin B12 Level 769, Folate 12.5 Height (Feet): 5 Height (Inches): 1.00 Weight (Pounds): 156 General Appearance: lethargic EENT: normal ENT inspection Neck: normal alignment Cardiovascular: normal rate, regular rhythm Respiratory/Chest: no respiratory distress, no accessory muscle use Extremities: normal inspection Louis Irvin DO Jan 19, 2020 10:45
--- NOTE | 2020-01-19 10:51 | NUR ---
CASE MANAGEMENT:REVIEW SI;COVID-19 PNEUMONIA. ANEMIA. 102.4 102 107/59 93% ON RA WBC 13.8 H/H 6.6/23.2 NA 133 K+ 3.0 IRON 5 TIBC 244 ALB 2.58 IS;IVF D5W @ 50 ML/HR LOVENOX SUBQ QD ROBITUSSIN W/CODEINE PO Q6 PRN MED SURG STATUS DCP;PATIENT IS FROM HOME PLAN;START REMDESIVIR CONTINUE ISOLATION
--- NOTE | 2020-01-19 11:02 | NUR ---
*-* INSURANCE *-* UPDATED CLINICALS AND REVIEWS HAVE BEEN FAXED TO: ILANA HENDRICKS P:[phone] F:[phone] *-* PT CAPITATED TO [facility] MADE AWARE *-*
--- NOTE | 2020-01-19 11:05 | NUR ---
P.T Note: P.T evaluation completed. Pt is alert, O x 4, pleasant and cooperative. Pt denied c/o pain but reports c/o general fatigue and weakness. Pt however is independent in all aspects of functional mobilities despite above complaints. Current functional status does not warrant skilled P.T service at this time. Encouraged pt OOB activities as tolerated VS bedrest unless otherwise ordered by MD. Pt understood. DC P.T services. Thank you for this referral.
[2020-01-19 12:00] VITALS: BP 117/67
[2020-01-19] MEDS: guaiFENesin w/Codeine 5ml Liq ud ORAL PRN (13:09)
--- NOTE | 2020-01-19 13:11 | NUR ---
PUBLIC FINANCE SPECIALIST NOTE CALL RECEIVED FROM JAYDA THURMAN FROM [facility] @ [phone] EXT 212 TO REQUEST FAX NUMBER TO FAX AUTHORIZATION. PROVIDED CM FAX #[phone].
--- NOTE | 2020-01-19 13:57 | Consultation ---
Consult Note Consult Note I am asked to evaluate the patient at the request of Dr Louis Irvin for fluid and electrolyte management. 39-year-old female presents ED for fever, cough, weakness. Started 4 days ago. States she went to a clinic and was told she had strep throat. Was given antibiotics. States that she is feeling worse. States she has a cough. Productive with yellowish phlegm. Febrile in triage. States she feels weak. States she feels short of breath. No other aggravating relieving factors. Denies any other associated symptoms No Known Allergies (Unverified , 10/19/15) COVID-19 Screening Contact w/high risk pt: No Recent Travel to affected area: No Experienced COVID-19 symptoms?: Yes COVID-19 symptoms experienced: Fever (T>100.4F or >38C), Shortness of Breath, Cough COVID-19 Testing performed STRUCTURAL DESIGN ENGINEER: No Patient examined Data reviewed Assessment/Plan Hypokalemia, likely depletional Severe anemia, low iron Suspected COVID-19 infection Elevated inflammatory markers Change hypotonic solution to isotonic solution Potassium supplements IV iron Continue per consultants Per orders Kristian Barry MD Jan 19, 2020 13:57
[2020-01-19] MEDS ORDERED: Iron Sucrose 200 MG in NS 110 ML IV ONE (15:00)
[2020-01-19 16:00] VITALS: BP 121/72
--- NOTE | 2020-01-19 18:36 | Diagnostic Imaging Report ---
EXAM: XR Chest, 1 View CLINICAL HISTORY: SOB TECHNIQUE: Frontal view of the chest. COMPARISON: 01/17/2020 FINDINGS: Lungs: Increasing bilateral patchy airspace opacities concerning for multifocal pneumonia or pulmonary edema. Low lung volumes with bronchovascular crowding. Pleural space: Unremarkable. No pneumothorax. Heart: Prominent cardiac mediastinal silhouette likely due to portable technique and low lung volumes. Mediastinum: See above. Bones/joints: Unremarkable. Other findings: If there is clinical ambiguity, consider CT. IMPRESSION: 1. Increasing bilateral patchy airspace opacities concerning for multifocal pneumonia or pulmonary edema. 2. Prominent cardiac mediastinal silhouette likely due to portable technique and low lung volumes. 3. If there is clinical ambiguity, consider CT.
--- NOTE | 2020-01-19 19:30 | NUR ---
NURSE NOTES: Received report from adriana houston. patient on bed, awake and verbally responsive. alert and oriented. on venturi mask at 6llpm. no sob. with iv line on the right ac running kcl 10 meq premix #3 bag. per celso, patient is s/p blood transfusion x1 bag due to hgb of 6.6 and s/p kcl 10 meq premix x3 bags due to k level of 3.0. with 1 nag of kcl premix remaining. afebrile at the moment. denies any pain or discomfort. call light and light button within easy reach. bed locked and in lowest position. will continue plan of care.
--- NOTE | 2020-01-19 19:47 | NUR ---
HAND-OFF: Report given to PRAVEEN Dallas.
[2020-01-19 20:00] VITALS: BP 105/66
--- NOTE | 2020-01-19 20:32 | NUR ---
NURSE NOTES: there is kcl 10meq premix x 4 bags order. the day shift was able to give 3 bags. 1 bag remaining.the kcl premix is not showing in the pyxis. called the pharmacy regarding the issue. per anay, the order has and just need to put a new order of kcl 10 meq premix x1 bag. put inthe new order. charge nurse made aware.
[2020-01-19] MEDS: Enoxaparin 100mg Inj SUBQ SCH (23:00)
[2020-01-20] VITALS: BP 124/68
[2020-01-20] MEDS: guaiFENesin w/Codeine 5ml Liq ud ORAL PRN ×2 (02:03→23:21)
--- NOTE | 2020-01-20 02:30 | NUR ---
NURSE NOTES: noted patient having episode of coughing episodes. afebrile. with c/o abdominal pain due to coughing. with 02 of 85% per venturi mask. called luke (RT) and shifted to non-rebreather mask with 02 of 93%. per patient" i feel better". charge nurse made aware.
[2020-01-20 04:00] VITALS: BP 123/79
[2020-01-20] MEDS: D5NS 1,000 ML IV SCH (05:12)
[2020-01-20 05:56] LABS: BASOPHILS % (AUTO) 0.2 % (0.0-2.0); EOSINOPHILS % (AUTO) 0.8 % (0.0-3.0); HEMATOCRIT 28.8 % (37.0-47.0); HEMOGLOBIN 8.4 G/DL (12.0-16.0); LYMPHOCYTES % (AUTO) 10.3 % (20.0-45.0); MEAN CORPUSCULAR VOLUME 64 FL (80-99); MONOCYTES % (AUTO) 3.7 % (1.0-10.0); NEUTROPHILS % (AUTO) 84.9 % (45.0-75.0); PLATELET COUNT 317 K/UL (150-450); RED BLOOD COUNT 4.53 M/UL (4.20-5.40); RED CELL DISTRIBUTION WIDTH 21.6 % (11.6-14.8); WHITE BLOOD COUNT 11.1 K/UL (4.8-10.8)
[2020-01-20 06:03] LABS: ANION GAP 9 mmol/L (5-15); BLOOD UREA NITROGEN 3 mg/dL (7-18); CALCIUM 7.5 MG/DL (8.5-10.1); CARBON DIOXIDE 23 MMOL/L (21-32); CHLORIDE 102 MMOL/L (98-107); CREATININE 0.6 MG/DL (0.55-1.30); POTASSIUM 3.9 MMOL/L (3.5-5.1); SODIUM 134 MMOL/L (136-145)
--- NOTE | 2020-01-20 07:34 | NUR ---
HAND-OFF: Report given to adriana ramirez.patient is on bed, awake.no sob. afebrile. call light and light button within easy reach. plan of care endorsed.
[2020-01-20 08:00] VITALS: BP 127/79
--- NOTE | 2020-01-20 08:00 | NUR ---
NURSE NOTES: Report received from PRAVEEN Dallas. Patient seen on rounds, AxOx4, on O2 via NRB mask at 15lpm, pt reports some SOB with exertion and coughing. Reports productive cough. PIV on R. AC G22 infusing D5NS at 50ml/hr. Pt is continent x2 and able to use bedside commode. Isolation precautions maintained, bed low and locked, siderails up x2, call light placed within reach and instructed to call nurse for assistance. Will continue to monitor.
--- NOTE | 2020-01-20 08:09 | NUR ---
NURSE NOTES: Spoke with Gosia from pharmacy to followup status of Remdesivir.
--- NOTE | 2020-01-20 08:20 | NUR ---
NURSE NOTES: Spoke with patient who confirmed that she received information regarding Remdesivir. She has no questions at the moment and consents to receiving the medication. Informed Gosia from pharmacy and states she will followup with orders for Remdesivir.
[2020-01-20] MEDS ORDERED: Remdesivir Fact Sheet MISC SCH (09:15)
--- NOTE | 2020-01-20 09:58 | Pulmonology Progress Note ---
Subjective Interval Events: Seen by ID; no new complaints Constitutional: Reports: no symptoms HEENT: Repors: no symptoms Respiratory: Reports: no symptoms Cardiovascular: Reports: no symptoms Gastrointestinal/Abdominal: Denies: nausea, vomiting, diarrhea Genitourinary: Reports: no symptoms Musculoskeletal: Reports: pain Allergies: Coded Allergies: No Known Allergies (Unverified , 10/19/15) All Systems: reviewed and negative except above Objective Last 24 Hour Vital Signs Date Time Temp Pulse Resp B/P (MAP) Pulse Ox O2 Delivery O2 Flow Rate FiO2 01/20/20 08:00 98.2 94 30 127/79 (95) 95 01/20/20 04:00 98.6 88 20 123/79 (94) 93 01/20/20 00:00 99.1 94 20 124/68 (86) 93 01/19/20 21:00 Room Air 01/19/20 20:00 99.0 86 20 105/66 (79) 93 01/19/20 16:47 100.0 01/19/20 16:00 102.4 101 20 121/72 (88) 90 01/19/20 12:00 99.6 86 20 117/67 (84) 92 Intake and Output 01/19/20 01/20/20 19:00 07:00 Intake Total 300 ml 700 ml Balance 300 ml 700 ml Intake Oral 300 ml 700 ml # Voids 3 2 General Appearance: no acute distress HEENT: normocephalic Respiratory: chest wall non-tender, lungs clear Cardiovascular: normal peripheral pulses Abdomen: normal bowel sounds, soft, non tender Extremities: no cyanosis, no clubbing, no edema Microbiology Date/Time Source Procedure Growth Status 01/17/20 21:22 Blood Blood Culture - Preliminary NO GROWTH AFTER 24 HOURS Resulted 01/17/20 21:07 Blood Blood Culture - Preliminary NO GROWTH AFTER 24 HOURS Resulted 01/17/20 21:59 Nasopharynx Coronavirus COVID-19 PCR ([facility]) - Final Complete Laboratory Tests 01/19/20 17:09: Arterial Blood pH 7.473H, Arterial Blood Partial Pressure CO2 26.6L, Arterial Blood Partial Pressure O2 54.9L, Arterial Blood HCO3 19.1L, Arterial Blood Oxygen Saturation 89.5*L, Arterial Blood Base Excess -3.7L, Miguel Test Positive 01/20/20 05:20: White Blood Count 11.1H, Red Blood Count 4.53, Hemoglobin 8.4L, Hematocrit 28.8L , Mean Corpuscular Volume 64#L, Mean Corpuscular Hemoglobin 18.4L, Mean Corpuscular Hemoglobin Concent 29.0L, Red Cell Distribution Width 21.6H, Platelet Count 317, Mean Platelet Volume 7.5, Neutrophils (%) (Auto) 84.9H, Lymphocytes (%) (Auto) 10.3L, Monocytes (%) (Auto) 3.7, Eosinophils (%) (Auto) 0.8, Basophils (%) (Auto) 0.2, Sodium Level 134L, Potassium Level 3.9, Chloride Level 102, Carbon Dioxide Level 23, Anion Gap 9, Blood Urea Nitrogen 3L, Creatinine 0.6, Estimat Glomerular Filtration Rate > 60, Glucose Level 91, Calcium Level 7.5L Current Medications Medications (Trade) Dose Ordered Sig/Bhargav Route PRN Reason Start Time Stop Time Status Last Admin Dose Admin Acetaminophen (Tylenol) 650 mg Q6H PRN ORAL Temp >100.5 01/18/20 07:00 02/17/20 06:59 01/19/20 16:17 Albuterol/ Ipratropium (Albuterol/ Ipratropium) 3 ml Q6H PRN HHN Shortness of Breath 01/18/20 03:00 01/23/20 02:59 Dextrose/Sodium Chloride 1,000 ml @ 50 mls/hr Q20H IV 01/19/20 09:30 02/18/20 09:29 01/20/20 05:12 Enoxaparin Sodium (Lovenox) 100 mg Q24H SUBQ 01/18/20 23:00 04/17/20 22:59 01/18/20 22:27 Guaifenesin/ Codeine Phosphate (Robitussin with codeine) 5 ml Q6H PRN ORAL For Cough 01/18/20 14:45 02/17/20 14:44 01/20/20 02:03 Ondansetron HCl (Zofran) 4 mg Q6H PRN IVP Nausea & Vomiting 01/18/20 07:00 02/17/20 06:59 Remdesivir 100 mg/ Sodium Chloride 250 ml @ 250 mls/hr Q24H IV 01/21/20 10:30 01/24/20 11:29 Remdesivir 200 mg/ Sodium Chloride 250 ml @ 125 mls/hr ONCE IV 01/20/20 10:30 01/20/20 12:29 Assessment/Plan Assessment/Plan COVID pneumonia hypoxemia abnormal CXR anemia leukocytosis, improved PLAN care noted ID follow up oxygen as needed; currently off monitor for change monitor imaging isolation impression, plan, and exam edited and reviewed in detail care discussed with Evan Roman MD Jan 20, 2020 09:58
[2020-01-20] MEDS ORDERED: Loading Dose:Remdesivir 200mg/NS 210ml IV SCH ×2 (10:30)
--- NOTE | 2020-01-20 10:41 | Infectious Diseases Prog Note ---
Assessment/Plan Assessment/Plan antibiotics : remdesivir 01.20.20 - A 1. Covid 19 pneumonia on 15 liters, O2 95 percent saturation 2. leucocytosis improving 3. anemia P 1. start remdesivir EUA day 1 2. start dexamethasone 3. continue isolation 4. will follow up cultures Subjective Constitutional: Denies: fever, chills Respiratory: Reports: shortness of breath, dry cough Gastrointestinal/Abdominal: Denies: nausea, vomiting, diarrhea Musculoskeletal: Reports: pain Allergies: Coded Allergies: No Known Allergies (Unverified , 10/19/15) Objective Last 24 Hour Vital Signs Date Time Temp Pulse Resp B/P (MAP) Pulse Ox O2 Delivery O2 Flow Rate FiO2 01/20/20 09:00 Room Air 01/20/20 08:00 98.2 94 30 127/79 (95) 95 01/20/20 04:00 98.6 88 20 123/79 (94) 93 01/20/20 00:00 99.1 94 20 124/68 (86) 93 01/19/20 21:00 Room Air 01/19/20 20:00 99.0 86 20 105/66 (79) 93 01/19/20 16:47 100.0 01/19/20 16:00 102.4 101 20 121/72 (88) 90 01/19/20 12:00 99.6 86 20 117/67 (84) 92 Height (Feet): 5 Height (Inches): 1.00 Weight (Pounds): 156 Microbiology Date/Time Source Procedure Growth Status 01/17/20 21:22 Blood Blood Culture - Preliminary NO GROWTH AFTER 24 HOURS Resulted 01/17/20 21:07 Blood Blood Culture - Preliminary NO GROWTH AFTER 24 HOURS Resulted 01/17/20 21:59 Nasopharynx Coronavirus COVID-19 PCR ([facility]) - Final Complete Laboratory Tests Test 01/19/20 17:09 01/20/20 05:20 Arterial Blood pH 7.473 (7.350-7.450) Arterial Blood Partial Pressure CO2 26.6 mmHg (35.0-45.0) L Arterial Blood Partial Pressure O2 54.9 mmHg (75.0-100.0) L Arterial Blood HCO3 19.1 mmol/L (22.0-26.0) L Arterial Blood Oxygen Saturation 89.5 % (95-100) *L Arterial Blood Base Excess -3.7 (-2-2) L Miguel Test Positive White Blood Count 11.1 K/UL (4.8-10.8) H Red Blood Count 4.53 M/UL (4.20-5.40) Hemoglobin 8.4 G/DL (12.0-16.0) L Hematocrit 28.8 % (37.0-47.0) L Mean Corpuscular Volume 64 FL (80-99) #L Mean Corpuscular Hemoglobin 18.4 PG (27.0-31.0) L Mean Corpuscular Hemoglobin Concent 29.0 G/DL (32.0-36.0) L Red Cell Distribution Width 21.6 % (11.6-14.8) H Platelet Count 317 K/UL (150-450) Mean Platelet Volume 7.5 FL (6.5-10.1) Neutrophils (%) (Auto) 84.9 % (45.0-75.0) H Lymphocytes (%) (Auto) 10.3 % (20.0-45.0) L Monocytes (%) (Auto) 3.7 % (1.0-10.0) Eosinophils (%) (Auto) 0.8 % (0.0-3.0) Basophils (%) (Auto) 0.2 % (0.0-2.0) Sodium Level 134 MMOL/L (136-145) L Potassium Level 3.9 MMOL/L (3.5-5.1) Chloride Level 102 MMOL/L (98-107) Carbon Dioxide Level 23 MMOL/L (21-32) Anion Gap 9 mmol/L (5-15) Blood Urea Nitrogen 3 mg/dL (7-18) L Creatinine 0.6 MG/DL (0.55-1.30) Estimat Glomerular Filtration Rate > 60 mL/min (>60) Glucose Level 91 MG/DL (74-106) Calcium Level 7.5 MG/DL (8.5-10.1) L Current Medications Medications (Trade) Dose Ordered Sig/Bhargav Route PRN Reason Start Time Stop Time Status Last Admin Dose Admin Acetaminophen (Tylenol) 650 mg Q6H PRN ORAL Temp >100.5 01/18/20 07:00 02/17/20 06:59 01/19/20 16:17 Albuterol/ Ipratropium (Albuterol/ Ipratropium) 3 ml Q6H PRN HHN Shortness of Breath 01/18/20 03:00 01/23/20 02:59 Dextrose/Sodium Chloride 1,000 ml @ 50 mls/hr Q20H IV 01/19/20 09:30 02/18/20 09:29 01/20/20 05:12 Enoxaparin Sodium (Lovenox) 100 mg Q24H SUBQ 01/18/20 23:00 04/17/20 22:59 01/18/20 22:27 Guaifenesin/ Codeine Phosphate (Robitussin with codeine) 5 ml Q6H PRN ORAL For Cough 01/18/20 14:45 02/17/20 14:44 01/20/20 02:03 Ondansetron HCl (Zofran) 4 mg Q6H PRN IVP Nausea & Vomiting 01/18/20 07:00 02/17/20 06:59 Remdesivir 100 mg/ Sodium Chloride 250 ml @ 250 mls/hr Q24H IV 01/21/20 10:30 01/24/20 11:29 Remdesivir 200 mg/ Sodium Chloride 250 ml @ 125 mls/hr ONCE IV 01/20/20 10:30 01/20/20 12:29 01/20/20 10:32 Pati Fonseca MD Jan 20, 2020 10:41
--- NOTE | 2020-01-20 11:31 | General Progress Note ---
Assessment/Plan Problem List: (1) Anemia ICD Codes: D64.9 - Anemia, unspecified SNOMED: 526729440 Qualifiers: Qualified Codes: D64.9 - Anemia, unspecified (2) Pneumonia ICD Codes: J18.9 - Pneumonia, unspecified organism SNOMED: 190974158 Qualifiers: Qualified Codes: J18.9 - Pneumonia, unspecified organism (3) Elevated C-reactive protein ICD Codes: R79.82 - Elevated C-reactive protein (CRP) SNOMED: 621295353729541 (4) Elevated d-dimer ICD Codes: R79.89 - Other specified abnormal findings of blood chemistry SNOMED: 155929967 (5) Suspected COVID-19 virus infection ICD Codes: Z20.828 - Contact with and (suspected) exposure to other viral communicable diseases SNOMED: 962386676 (6) Malnutrition ICD Codes: E46 - Unspecified protein-calorie malnutrition SNOMED: 75836255 Status: progressing, unchanged Assessment/Plan: positive covid pna resp insuff anemia prn supportive rx check oxygen level Subjective ROS Limited/Unobtainable: Yes Allergies: Coded Allergies: No Known Allergies (Unverified , 10/19/15) Objective Last 24 Hour Vital Signs Date Time Temp Pulse Resp B/P (MAP) Pulse Ox O2 Delivery O2 Flow Rate FiO2 01/20/20 09:00 Room Air 01/20/20 08:00 98.2 94 30 127/79 (95) 95 01/20/20 04:00 98.6 88 20 123/79 (94) 93 01/20/20 00:00 99.1 94 20 124/68 (86) 93 01/19/20 21:00 Room Air 01/19/20 20:00 99.0 86 20 105/66 (79) 93 01/19/20 16:47 100.0 01/19/20 16:00 102.4 101 20 121/72 (88) 90 01/19/20 12:00 99.6 86 20 117/67 (84) 92 Intake and Output 01/19/20 01/20/20 19:00 07:00 Intake Total 300 ml 700 ml Balance 300 ml 700 ml Intake Oral 300 ml 700 ml # Voids 3 2 Laboratory Tests 01/19/20 17:09: Arterial Blood pH 7.473H, Arterial Blood Partial Pressure CO2 26.6L, Arterial Blood Partial Pressure O2 54.9L, Arterial Blood HCO3 19.1L, Arterial Blood Oxygen Saturation 89.5*L, Arterial Blood Base Excess -3.7L, Miguel Test Positive 01/20/20 05:20: White Blood Count 11.1H, Red Blood Count 4.53, Hemoglobin 8.4L, Hematocrit 28.8L , Mean Corpuscular Volume 64#L, Mean Corpuscular Hemoglobin 18.4L, Mean Corpuscular Hemoglobin Concent 29.0L, Red Cell Distribution Width 21.6H, Platelet Count 317, Mean Platelet Volume 7.5, Neutrophils (%) (Auto) 84.9H, Lymphocytes (%) (Auto) 10.3L, Monocytes (%) (Auto) 3.7, Eosinophils (%) (Auto) 0.8, Basophils (%) (Auto) 0.2, Sodium Level 134L, Potassium Level 3.9, Chloride Level 102, Carbon Dioxide Level 23, Anion Gap 9, Blood Urea Nitrogen 3L, Creatinine 0.6, Estimat Glomerular Filtration Rate > 60, Glucose Level 91, Calcium Level 7.5L Height (Feet): 5 Height (Inches): 1.00 Weight (Pounds): 156 Chintan Mills MD Jan 20, 2020 11:31
[2020-01-20 12:00] VITALS: BP 120/68
--- NOTE | 2020-01-20 14:12 | Nephrology Progress Note ---
Assessment/Plan Problem List: (1) Hypokalemia (2) Anemia Assessment: Iron deficiency (3) Suspected COVID-19 virus infection Assessment Hypokalemia, likely depletional Severe anemia, low iron Suspected COVID-19 infection Elevated inflammatory markers Plan On Remdesivir and Decadron Change hypotonic solution to isotonic solution Potassium supplements IV iron Patient also transfused Continue per consultants Per orders Subjective ROS Limited/Unobtainable: No Objective Objective Last 24 Hour Vital Signs Date Time Temp Pulse Resp B/P (MAP) Pulse Ox O2 Delivery O2 Flow Rate FiO2 01/20/20 12:00 98.2 91 27 120/68 (85) 94 01/20/20 09:00 Room Air 01/20/20 08:00 98.2 94 30 127/79 (95) 95 01/20/20 04:00 98.6 88 20 123/79 (94) 93 01/20/20 00:00 99.1 94 20 124/68 (86) 93 01/19/20 21:00 Room Air 01/19/20 20:00 99.0 86 20 105/66 (79) 93 01/19/20 16:47 100.0 01/19/20 16:00 102.4 101 20 121/72 (88) 90 Intake and Output 01/19/20 01/20/20 19:00 07:00 Intake Total 300 ml 750 ml Balance 300 ml 750 ml Intake Oral 300 ml 700 ml IV Total 50 ml # Voids 3 2 Laboratory Tests 01/19/20 17:09: Arterial Blood pH 7.473H, Arterial Blood Partial Pressure CO2 26.6L, Arterial Blood Partial Pressure O2 54.9L, Arterial Blood HCO3 19.1L, Arterial Blood Oxygen Saturation 89.5*L, Arterial Blood Base Excess -3.7L, Miguel Test Positive 01/20/20 05:20: White Blood Count 11.1H, Red Blood Count 4.53, Hemoglobin 8.4L, Hematocrit 28.8L , Mean Corpuscular Volume 64#L, Mean Corpuscular Hemoglobin 18.4L, Mean Corpuscular Hemoglobin Concent 29.0L, Red Cell Distribution Width 21.6H, Platelet Count 317, Mean Platelet Volume 7.5, Neutrophils (%) (Auto) 84.9H, Lymphocytes (%) (Auto) 10.3L, Monocytes (%) (Auto) 3.7, Eosinophils (%) (Auto) 0.8, Basophils (%) (Auto) 0.2, Sodium Level 134L, Potassium Level 3.9, Chloride Level 102, Carbon Dioxide Level 23, Anion Gap 9, Blood Urea Nitrogen 3L, Creatinine 0.6, Estimat Glomerular Filtration Rate > 60, Glucose Level 91, Calcium Level 7.5L Height (Feet): 5 Height (Inches): 1.00 Weight (Pounds): 156 General Appearance: no apparent distress Cardiovascular: tachycardia Respiratory/Chest: decreased breath sounds Objective No change Kristian Barry MD Jan 20, 2020 14:12
--- NOTE | 2020-01-20 14:41 | NUR ---
CASE MANAGEMENT: REVIEW 01/20/2020 SI:COVID pneumonia VS T 98.2 HR 94 RR 30 B/P 127/79 SATS 95% ON RA LABS: White Blood Count 11.1, Hemoglobin 8.4L, Hematocrit 28.8L, Sodium Level 134L, Blood Urea Nitrogen 3L, Calcium Level 7.5L IS:DEXTROSE IV @ 50 ML/HR REMDESIVIR IV Q24H DECADRON PO Q24H MED/SURG
[2020-01-20 16:00] VITALS: BP 125/71
--- NOTE | 2020-01-20 19:23 | NUR ---
HAND-OFF: Report given to Manfredu RN.
--- NOTE | 2020-01-20 19:25 | NUR ---
NURSE NOTES: Patient alert, awake, and verbally responsive. Breathing unlabored on 15LPM via non-rebreather mask. Denies pain or discomfort at this time. IV site intact. Bed placed at the lowest with brake and siderails up for patient safety. Call light placed within reach and encouraged to use. Will continue to monitor and provide care as ordered.
[2020-01-20 20:00] VITALS: BP 105/65
[2020-01-20] MEDS: Enoxaparin 100mg Inj SUBQ SCH (22:44)
--- NOTE | 2020-01-20 22:45 | NUR ---
NURSE NOTES: Discussed risk and benefit regarding the Lovenox x3. Patient is awaiting for occult stool collection. Patient prefers to wait for the result before receiving the medication at this time. Will continue to monitor and provide care as ordered.
[2020-01-21] VITALS: BP 105/55
[2020-01-21] MEDS: D5NS 1,000 ML IV SCH ×2 (01:10→15:56)
[2020-01-21 04:00] VITALS: BP 115/75
--- NOTE | 2020-01-21 06:55 | NUR ---
NURSE NOTES: Patient constipated. Received order for Miralax PRN from Dr. Pascual. Will carry out the order as given.
[2020-01-21] MEDS ORDERED: Miralax 17gm pkt ORAL PRN (07:00)
--- NOTE | 2020-01-21 07:21 | NUR ---
HAND-OFF: Report given to PRAVEEN Bocanegra. Made rounds with receiving RN. Informed patient regarding the new order of laxative. Endorsed new order to receiving RN. Plan of care endorsed.
--- NOTE | 2020-01-21 07:27 | NUR ---
NURSE NOTES: Report received from Minsu RN. Patient seen on rounds, AxOx4, on O2 at 15lpm via NRB, no signs of distress, O2 sats stable. Still with cough. Pt reports that she slept overnight. PIV on right AC patent and intact infusing IV fluids as ordered. Pt is pending OB stool but has not had a bowel movement and is requesting laxatives today. Pt is continent and ambulatory, Isolation precautions maintained, bed low and locked, siderails up x2, call light placed within reach and instructed to call nurse for assistance. Will continue to monitor.
[2020-01-21 08:00] VITALS: BP 112/63
--- NOTE | 2020-01-21 08:30 | Pulmonology Progress Note ---
Subjective ROS Limited/Unobtainable: No Interval Events: on high oxygen Constitutional: Denies: fever, chills HEENT: Repors: no symptoms Respiratory: Reports: no symptoms Cardiovascular: Reports: no symptoms Gastrointestinal/Abdominal: Denies: nausea, vomiting, diarrhea Genitourinary: Reports: no symptoms Musculoskeletal: Reports: pain Allergies: Coded Allergies: No Known Allergies (Unverified , 10/19/15) All Systems: reviewed and negative except above Objective Last 24 Hour Vital Signs Date Time Temp Pulse Resp B/P (MAP) Pulse Ox O2 Delivery O2 Flow Rate FiO2 01/21/20 08:00 98.5 60 20 112/63 (79) 100 01/21/20 04:00 97.5 68 18 115/75 (88) 93 01/21/20 00:00 98.0 72 20 105/55 (72) 93 01/20/20 21:00 Non-Rebreather 15.0 01/20/20 20:00 97.8 75 20 105/65 (78) 93 01/20/20 16:00 97.7 86 28 125/71 (89) 97 01/20/20 12:00 98.2 91 27 120/68 (85) 94 01/20/20 09:00 Room Air Intake and Output 01/20/20 01/21/20 19:00 07:00 Intake Total 1450 ml 600 ml Output Total 500 ml Balance 1450 ml 100 ml Intake Oral 600 ml IV Total 850 ml 600 ml Output Urine Total 500 ml # Voids 3 2 General Appearance: no acute distress HEENT: normocephalic Respiratory: chest wall non-tender, lungs clear Cardiovascular: normal peripheral pulses Abdomen: normal bowel sounds, soft, non tender Extremities: no cyanosis, no clubbing, no edema Current Medications Medications (Trade) Dose Ordered Sig/Bhargav Route PRN Reason Start Time Stop Time Status Last Admin Dose Admin Acetaminophen (Tylenol) 650 mg Q6H PRN ORAL Temp >100.5 01/18/20 07:00 02/17/20 06:59 01/19/20 16:17 Albuterol/ Ipratropium (Albuterol/ Ipratropium) 3 ml Q6H PRN HHN Shortness of Breath 01/18/20 03:00 01/23/20 02:59 Dexamethasone (Decadron) 6 mg Q24H ORAL 01/20/20 11:00 01/28/20 12:00 01/20/20 10:58 Dextrose/Sodium Chloride 1,000 ml @ 50 mls/hr Q20H IV 01/19/20 09:30 02/18/20 09:29 01/21/20 01:10 Enoxaparin Sodium (Lovenox) 100 mg Q24H SUBQ 01/18/20 23:00 04/17/20 22:59 01/18/20 22:27 Guaifenesin/ Codeine Phosphate (Robitussin with codeine) 5 ml Q6H PRN ORAL For Cough 01/18/20 14:45 02/17/20 14:44 01/20/20 23:21 Ondansetron HCl (Zofran) 4 mg Q6H PRN IVP Nausea & Vomiting 01/18/20 07:00 02/17/20 06:59 Polyethylene Glycol (Miralax) 17 gm DAILYPRN PRN ORAL Constipation 01/21/20 07:00 02/20/20 06:59 01/21/20 08:20 Remdesivir 100 mg/ Sodium Chloride 250 ml @ 250 mls/hr Q24H IV 01/21/20 10:30 01/24/20 11:29 Assessment/Plan Assessment/Plan COVID pneumonia hypoxemia, severe abnormal CXR anemia leukocytosis, improved PLAN care noted ID follow up oxygen needs dramatically increase CXR and ABG may need transfer to higher level of care monitor for change monitor imaging- ordered isolation impression, plan, and exam edited and reviewed in detail care discussed with Evan Roman MD Jan 21, 2020 08:30
--- NOTE | 2020-01-21 08:52 | Nephrology Progress Note ---
Assessment/Plan Problem List: (1) Hypokalemia (2) Anemia Assessment: Iron deficiency (3) Suspected COVID-19 virus infection Assessment Hypokalemia, likely depletional Severe anemia, low iron Suspected COVID-19 infection Elevated inflammatory markers Plan Will check lab tomorrow. Will monitor renal parameters and electrolytes. Continue per consultants. On Remdesivir and Decadron Change hypotonic solution to isotonic solution Potassium supplements IV iron Patient also transfused Continue per consultants Per orders Subjective ROS Limited/Unobtainable: No Constitutional: Reports: malaise Objective Objective Last 24 Hour Vital Signs Date Time Temp Pulse Resp B/P (MAP) Pulse Ox O2 Delivery O2 Flow Rate FiO2 01/21/20 08:00 98.5 60 20 112/63 (79) 100 01/21/20 04:00 97.5 68 18 115/75 (88) 93 01/21/20 00:00 98.0 72 20 105/55 (72) 93 01/20/20 21:00 Non-Rebreather 15.0 01/20/20 20:00 97.8 75 20 105/65 (78) 93 01/20/20 16:00 97.7 86 28 125/71 (89) 97 01/20/20 12:00 98.2 91 27 120/68 (85) 94 01/20/20 09:00 Room Air Intake and Output 01/20/20 01/21/20 19:00 07:00 Intake Total 1450 ml 600 ml Output Total 500 ml Balance 1450 ml 100 ml Intake Oral 600 ml IV Total 850 ml 600 ml Output Urine Total 500 ml # Voids 3 2 Current Medications Medications (Trade) Dose Ordered Sig/Bhargav Route PRN Reason Start Time Stop Time Status Last Admin Dose Admin Acetaminophen (Tylenol) 650 mg Q6H PRN ORAL Temp >100.5 01/18/20 07:00 02/17/20 06:59 01/19/20 16:17 Albuterol/ Ipratropium (Albuterol/ Ipratropium) 3 ml Q6H PRN HHN Shortness of Breath 01/18/20 03:00 01/23/20 02:59 Dexamethasone (Decadron) 6 mg Q24H ORAL 01/20/20 11:00 01/28/20 12:00 01/20/20 10:58 Dextrose/Sodium Chloride 1,000 ml @ 50 mls/hr Q20H IV 01/19/20 09:30 02/18/20 09:29 01/21/20 01:10 Enoxaparin Sodium (Lovenox) 100 mg Q24H SUBQ 01/18/20 23:00 04/17/20 22:59 01/18/20 22:27 Guaifenesin/ Codeine Phosphate (Robitussin with codeine) 5 ml Q6H PRN ORAL For Cough 01/18/20 14:45 02/17/20 14:44 01/20/20 23:21 Ondansetron HCl (Zofran) 4 mg Q6H PRN IVP Nausea & Vomiting 01/18/20 07:00 02/17/20 06:59 Polyethylene Glycol (Miralax) 17 gm DAILYPRN PRN ORAL Constipation 01/21/20 07:00 02/20/20 06:59 01/21/20 08:20 Remdesivir 100 mg/ Sodium Chloride 250 ml @ 250 mls/hr Q24H IV 01/21/20 10:30 01/24/20 11:29 No labs drawn today Height (Feet): 5 Height (Inches): 1.00 Weight (Pounds): 156 Cardiovascular: normal rate Respiratory/Chest: decreased breath sounds Abdomen: soft Objective No change Kristian Barry MD Jan 21, 2020 08:52
[2020-01-21] MEDS ORDERED: Maintenance Dose:Remdesivir 100mg/NS 230ml x 4 Doses IV SCH ×2 (10:30)
--- NOTE | 2020-01-21 11:06 | Diagnostic Imaging Report ---
EXAM: XR Chest, 1 View CLINICAL HISTORY: SOB TECHNIQUE: Frontal view of the chest. COMPARISON: Chest radiograph On 01/19/2020 FINDINGS: Hardware: None. Lungs/pleura: Slightly decreased but persistent patchy opacities throughout the left greater than right lungs. Heart/mediastinum: Stable enlargement of the cardiac silhouette. Soft tissues: Unremarkable. Bones: No acute fracture. Upper abdomen: Normal. IMPRESSION: Slightly decreased but persistent patchy opacities throughout the left greater than right lungs, concerning for an infectious/inflammatory process. Component of pulmonary edema is possible.
--- NOTE | 2020-01-21 11:24 | NUR ---
NURSE NOTES: Dr. Morocho notified of ABG and CXR results from today. Awaiting response.
--- NOTE | 2020-01-21 11:46 | NUR ---
NURSE NOTES: Received orders from Dr. Morocho to do stat duplex of bilateral lower extremities and transfer pt to [facility]. Charge nurse informed. Orders noted and carried out.
[2020-01-21 12:00] VITALS: BP 112/68
--- NOTE | 2020-01-21 14:58 | Infectious Diseases Prog Note ---
Assessment/Plan Assessment/Plan A; 1. Covid19 pneumonia 2. leucocytosis improving 3. anemia 4. Hypoxemia P 1. Continue remdesivir EUA day 2 2. Continue dexamethasone 3. continue isolation Subjective ROS Limited/Unobtainable: No Constitutional: Reports: anorexia Respiratory: Reports: shortness of breath, dry cough Gastrointestinal/Abdominal: Reports: no symptoms Genitourinary: Reports: no symptoms Allergies: Coded Allergies: No Known Allergies (Unverified , 10/19/15) Objective Last 24 Hour Vital Signs Date Time Temp Pulse Resp B/P (MAP) Pulse Ox O2 Delivery O2 Flow Rate FiO2 01/21/20 12:00 96.3 60 22 112/68 (83) 97 01/21/20 09:00 Non-Rebreather 15.0 01/21/20 08:00 98.5 60 20 112/63 (79) 100 01/21/20 04:00 97.5 68 18 115/75 (88) 93 01/21/20 00:00 98.0 72 20 105/55 (72) 93 01/20/20 21:00 Non-Rebreather 15.0 01/20/20 20:00 97.8 75 20 105/65 (78) 93 01/20/20 16:00 97.7 86 28 125/71 (89) 97 Height (Feet): 5 Height (Inches): 1.00 Weight (Pounds): 156 HEENT: mucous membranes moist Respiratory/Chest: other - oxygen by rebreathng mask Cardiovascular: normal rate Abdomen: soft, non tender Extremities: no edema Neurologic/Psychiatric: alert, oriented x 3, responsive Laboratory Tests Test 01/21/20 09:23 Arterial Blood pH 7.421 (7.350-7.450) Arterial Blood Partial Pressure CO2 32.4 mmHg (35.0-45.0) L Arterial Blood Partial Pressure O2 62.6 mmHg (75.0-100.0) L Arterial Blood HCO3 20.6 mmol/L (22.0-26.0) L Arterial Blood Oxygen Saturation 91.4 % (95-100) L Arterial Blood Base Excess -3.3 (-2-2) L Miguel Test Positive Current Medications Medications (Trade) Dose Ordered Sig/Bhargav Route PRN Reason Start Time Stop Time Status Last Admin Dose Admin Acetaminophen (Tylenol) 650 mg Q6H PRN ORAL Temp >100.5 01/18/20 07:00 02/17/20 06:59 01/19/20 16:17 Albuterol/ Ipratropium (Albuterol/ Ipratropium) 3 ml Q6H PRN HHN Shortness of Breath 01/18/20 03:00 01/23/20 02:59 Dexamethasone (Decadron) 6 mg Q24H ORAL 01/20/20 11:00 01/28/20 12:00 01/21/20 10:53 Dextrose/Sodium Chloride 1,000 ml @ 50 mls/hr Q20H IV 01/19/20 09:30 02/18/20 09:29 01/21/20 01:10 Enoxaparin Sodium (Lovenox) 100 mg Q24H SUBQ 01/18/20 23:00 04/17/20 22:59 01/18/20 22:27 Guaifenesin/ Codeine Phosphate (Robitussin with codeine) 5 ml Q6H PRN ORAL For Cough 01/18/20 14:45 02/17/20 14:44 01/20/20 23:21 Ondansetron HCl (Zofran) 4 mg Q6H PRN IVP Nausea & Vomiting 01/18/20 07:00 02/17/20 06:59 Polyethylene Glycol (Miralax) 17 gm DAILYPRN PRN ORAL Constipation 01/21/20 07:00 02/20/20 06:59 01/21/20 08:20 Remdesivir 100 mg/ Sodium Chloride 250 ml @ 250 mls/hr Q24H IV 01/21/20 10:30 01/24/20 11:29 01/21/20 10:52 Yosef Bess MD Jan 21, 2020 14:58
--- NOTE | 2020-01-21 15:23 | NUR ---
NURSE NOTES: Report received from PRAEVEN Bocanegra. Patient AxOx4, on O2 at 15LPM via non-rebreather mask, no signs of distress, O2 SAT 95%. Pt transferred from [facility] due to possibility of Bipap use. air sampling and monitoring applied. Pt on Contact and droplet precautions for covid19. IV on right FA 22G running with 5DNS @50ml/hr patent and intact. Ambulatory, Isolation precautions maintained, bed low and locked, siderails up x2, call light placed within reach and instructed to call nurse for assistance. Will continue to monitor.
--- NOTE | 2020-01-21 15:23 | NUR ---
HAND-OFF: Report given to Min RN. Patient transferred to [facility] Rm 243-2. Pt is AxOx4, on O2 at 15lpm via NRM, sats 94%, vitals stable prior to transport. IV intact on right antecubital. Skin intact. Belongings accounted for. Endorsed that stool OB collection still pending. Primary MD Dr. Irvin informed of transfer.
--- NOTE | 2020-01-21 15:41 | NUR ---
CASE MANAGEMENT:REVIEW 01/21/20 SI: COVID PNA 96.3 60 22 112/68 97% ON 15L NON REBREATHER NO LABS FOR TODAY IS: IV REMDESIVIR Q24 (DOSE#3/5) DECADRON PO Q24 LOVENOX SQ Q24 IV ROCEPHIN Q24 IVF@50/HR : TRANSFER FROM MED/SURG TO STEP DOWN UNIT PLAN: VENOUS DUPLEX
[2020-01-21 16:00] VITALS: BP 128/71
[2020-01-21] MEDS: cefTRIAXone 2 GM in D5W 55 ML IVPB SCH (16:00)
[2020-01-21] MEDS ORDERED: cefTRIAXone 2 GM in D5W 55 ML IVPB SCH (16:00)
--- NOTE | 2020-01-21 16:04 | Diagnostic Imaging Report ---
EXAM: US Duplex Bilateral Lower Extremities Veins CLINICAL HISTORY: THROMBUS TECHNIQUE: Real-time duplex ultrasound scan of the bilateral lower extremity veins integrating B-mode two-dimensional vascular structure, Doppler spectral analysis, color flow Doppler imaging and compression. COMPARISON: None FINDINGS: Right deep veins: Unremarkable. No DVT in the right common femoral, femoral, proximal deep femoral or popliteal veins. The veins demonstrate normal color flow, are normally compressible, with normal phasic flow and/or augmentation response. Right superficial veins: Unremarkable. No thrombus in the visualized right great saphenous vein. Left deep veins: Unremarkable. No DVT in the left common femoral, femoral, proximal deep femoral or popliteal veins. The veins demonstrate normal color flow, are normally compressible, with normal phasic flow and/or augmentation response. Left superficial veins: Unremarkable. No thrombus in the visualized left great saphenous vein. Soft tissues: No acute findings. No popliteal cyst. IMPRESSION: No deep venous thrombosis identified in either lower extremity.
--- NOTE | 2020-01-21 17:21 | NUR ---
INSURANCE FAXED REVIEWS AND CLINICALS TO [facility] F: [phone]
--- NOTE | 2020-01-21 19:20 | NUR ---
NURSE NOTES: Pt report received from MIN RN. pt is alert and oriented times 4, no acute change in neuro. pt is on non rebreather, sating at 98 %, no acute resp distress noted. pt is on family medicine physician assistant showing NSR, no acute cardiac distress noted. pt bed is low, locked, armed, call light within reach, bed rails up times 3. will follow plan of care.
--- NOTE | 2020-01-21 19:28 | NUR ---
HAND-OFF: Report given to PRAVEEN Knight. Pt remains stable.
[2020-01-21 20:00] VITALS: BP 118/73
[2020-01-21] MEDS: guaiFENesin w/Codeine 5ml Liq ud ORAL PRN (20:32)
[2020-01-21] MEDS ORDERED: Iron Sucrose 100 MG in NS 55 ML IV SCH (21:00)
[2020-01-21] MEDS ORDERED: Albuterol/Ipratropium 3ml neb HHN PRN (21:00)
--- NOTE | 2020-01-21 21:03 | General Progress Note ---
Assessment/Plan Problem List: (1) Anemia ICD Codes: D64.9 - Anemia, unspecified SNOMED: 880477068 Qualifiers: Qualified Codes: D64.9 - Anemia, unspecified (2) Pneumonia ICD Codes: J18.9 - Pneumonia, unspecified organism SNOMED: 767191168 Qualifiers: Qualified Codes: J18.9 - Pneumonia, unspecified organism (3) Elevated C-reactive protein ICD Codes: R79.82 - Elevated C-reactive protein (CRP) SNOMED: 008089545286360 (4) Elevated d-dimer ICD Codes: R79.89 - Other specified abnormal findings of blood chemistry SNOMED: 466750692 (5) Suspected COVID-19 virus infection ICD Codes: Z20.828 - Contact with and (suspected) exposure to other viral communicable diseases SNOMED: 458905235 (6) Malnutrition ICD Codes: E46 - Unspecified protein-calorie malnutrition SNOMED: 84875366 Status: progressing, unchanged Assessment/Plan: positive covid pna pna check sats elevated d dimer afebrile no wheezing prn supportive rx check oxygen level Subjective ROS Limited/Unobtainable: Yes Allergies: Coded Allergies: No Known Allergies (Unverified , 10/19/15) Objective Last 24 Hour Vital Signs Date Time Temp Pulse Resp B/P (MAP) Pulse Ox O2 Delivery O2 Flow Rate FiO2 01/21/20 16:18 57 01/21/20 16:00 97.6 78 22 128/71 (90) 94 01/21/20 16:00 Non-Rebreather 15.0 01/21/20 15:25 Non-Rebreather 15.0 01/21/20 12:00 96.3 60 22 112/68 (83) 97 01/21/20 09:00 Non-Rebreather 15.0 01/21/20 08:00 98.5 60 20 112/63 (79) 100 01/21/20 04:00 97.5 68 18 115/75 (88) 93 01/21/20 00:00 98.0 72 20 105/55 (72) 93 Intake and Output 01/20/20 01/21/20 19:00 07:00 Intake Total 1450 ml 600 ml Output Total 500 ml Balance 1450 ml 100 ml Intake Oral 600 ml IV Total 850 ml 600 ml Output Urine Total 500 ml # Voids 3 2 Laboratory Tests 01/21/20 09:23: Arterial Blood pH 7.421, Arterial Blood Partial Pressure CO2 32.4L, Arterial Blood Partial Pressure O2 62.6L, Arterial Blood HCO3 20.6L, Arterial Blood Oxygen Saturation 91.4L, Arterial Blood Base Excess -3.3L, Miguel Test Positive Height (Feet): 5 Height (Inches): 1.00 Weight (Pounds): 156 Chintan Mills MD Jan 21, 2020 21:03
--- NOTE | 2020-01-21 21:04 | Hematology/Onc Progress Note ---
Assessment/Plan Assessment/Plan # Anemia of iron deficiency, unspecified rule out gi bleed --> obtain a anemi panel, has been ordered --> will/have begun on iv iron and continue x 5 doses --> review if occult blood is + (review this to make sure +). Can consider gi eval --> hgb goal is >7, transfuse as needed --> trend CBC daily to make sure no major acute drop --> no evidence of hemolysis noted # Leukocytosis/elevated white blood cell count, unspecified likely related to underlying stress reaction, smoking v covid19 infeciton --> have reviewed peripheral smear and bandemia/neutrophilia noted --> continue antibiotics if they have been started by ID team --> monitor for resolution --> wbc trend 19-->9 # Elecated ddimer --> will recheck --> likely covid related --> is on lovenox for now # Hypokalemia, likely depletional --> per renal, replete # Suspected COVID-19 infection # Elevated inflammatory markers # Dvt ppx with lovenox Appreciate consultaiton and agnes Rn Subjective Constitutional: Denies: no symptoms, chills, fever, malaise, weakness, other HEENT: Denies: no symptoms, eye pain, blurred vision, tearing, double vision, ear pain, ear discharge, nose pain, nose congestion, throat pain, throat swelling, mouth pain, mouth swelling, other Respiratory: Reports: cough, shortness of breath Genitourinary: Denies: no symptoms, burning, discharge, frequency, flank pain, hematuria, incontinence, pain, urgency, other Neurologic/Psychiatric: Denies: no symptoms, anxiety, depressed, emotional problems, headache, numbness, paresthesia, pre-existing deficit, seizure, tingling, tremors, weakness, other Endocrine: Denies: no symptoms, excessive sweating, flushing, intolerance to cold, intolerance to heat, increased hunger, increased thirst, increased urine, unexplained weight gain, unexplained weight loss, other Hematologic/Lymphatic: Denies: no symptoms, anemia, easy bleeding, easy bruising, adenopathy, other Allergies: Coded Allergies: No Known Allergies (Unverified , 10/19/15) All Systems: reviewed and negative except above Subjective 01/20 no events, has been started on iv iron, will recheck ddimer Objective Objective Current Medications Medications (Trade) Dose Ordered Sig/Bhargav Route PRN Reason Start Time Stop Time Status Last Admin Dose Admin Acetaminophen (Tylenol) 650 mg Q6H PRN ORAL Temp >100.5 01/21/20 15:55 02/17/20 15:54 Acetaminophen (Tylenol) 650 mg Q6HR PRN ORAL For Pain 01/21/20 16:00 02/20/20 15:59 01/21/20 16:03 Albuterol/ Ipratropium (Albuterol/ Ipratropium) 3 ml Q6H PRN HHN Shortness of Breath 01/21/20 21:00 01/23/20 02:59 Ceftriaxone Sodium 2 gm/ Dextrose 55 ml @ 110 mls/hr Q24H IVPB 01/21/20 16:00 01/28/20 15:59 01/21/20 16:00 Dexamethasone (Decadron) 6 mg Q24H ORAL 01/22/20 11:00 01/28/20 12:00 Dextrose/Sodium Chloride 1,000 ml @ 50 mls/hr Q20H IV 01/21/20 15:30 02/18/20 09:29 01/21/20 15:56 Enoxaparin Sodium (Lovenox) 100 mg Q24H SUBQ 01/21/20 23:00 04/17/20 22:59 Guaifenesin/ Codeine Phosphate (Robitussin with codeine) 5 ml Q6H PRN ORAL For Cough 01/21/20 15:56 02/17/20 15:55 01/21/20 20:32 Ondansetron HCl (Zofran) 4 mg Q6H PRN IVP Nausea & Vomiting 01/21/20 15:56 02/17/20 15:55 Polyethylene Glycol (Miralax) 17 gm DAILYPRN PRN ORAL Constipation 01/22/20 07:00 02/20/20 06:59 Remdesivir 100 mg/ Sodium Chloride 250 ml @ 250 mls/hr Q24H IV 01/22/20 10:30 01/24/20 11:29 Last 24 Hour Vital Signs Date Time Temp Pulse Resp B/P (MAP) Pulse Ox O2 Delivery O2 Flow Rate FiO2 01/21/20 16:18 57 01/21/20 16:00 97.6 78 22 128/71 (90) 94 01/21/20 16:00 Non-Rebreather 15.0 01/21/20 15:25 Non-Rebreather 15.0 01/21/20 12:00 96.3 60 22 112/68 (83) 97 01/21/20 09:00 Non-Rebreather 15.0 01/21/20 08:00 98.5 60 20 112/63 (79) 100 01/21/20 04:00 97.5 68 18 115/75 (88) 93 01/21/20 00:00 98.0 72 20 105/55 (72) 93 01/20/20 21:00 Non-Rebreather 15.0 01/20/20 20:00 97.8 75 20 105/65 (78) 93 01/20/20 16:00 97.7 86 28 125/71 (89) 97 01/20/20 12:00 98.2 91 27 120/68 (85) 94 01/20/20 09:00 Room Air 01/20/20 08:00 98.2 94 30 127/79 (95) 95 01/20/20 04:00 98.6 88 20 123/79 (94) 93 01/20/20 00:00 99.1 94 20 124/68 (86) 93 Intake and Output 01/20/20 01/21/20 19:00 07:00 Intake Total 1450 ml 600 ml Output Total 500 ml Balance 1450 ml 100 ml Intake Oral 600 ml IV Total 850 ml 600 ml Output Urine Total 500 ml # Voids 3 2 Labs Test 01/19/20 04:50 01/19/20 08:15 01/19/20 17:09 01/20/20 05:20 White Blood Count 14.1 K/UL (4.8-10.8) 13.8 K/UL (4.8-10.8) 11.1 K/UL (4.8-10.8) Red Blood Count 4.00 M/UL (4.20-5.40) 3.91 M/UL (4.20-5.40) 4.53 M/UL (4.20-5.40) Hemoglobin 6.7 G/DL (12.0-16.0) 6.6 G/DL (12.0-16.0) 8.4 G/DL (12.0-16.0) Hematocrit 23.8 % (37.0-47.0) 23.2 % (37.0-47.0) 28.8 % (37.0-47.0) Mean Corpuscular Volume 59 FL (80-99) 59 FL (80-99) 64 FL (80-99) Mean Corpuscular Hemoglobin 16.8 PG (27.0-31.0) 16.8 PG (27.0-31.0) 18.4 PG (27.0-31.0) Mean Corpuscular Hemoglobin Concent 28.3 G/DL (32.0-36.0) 28.3 G/DL (32.0-36.0) 29.0 G/DL (32.0-36.0) Red Cell Distribution Width 17.8 % (11.6-14.8) 17.8 % (11.6-14.8) 21.6 % (11.6-14.8) Platelet Count 339 K/UL (150-450) 305 K/UL (150-450) 317 K/UL (150-450) Mean Platelet Volume 8.2 FL (6.5-10.1) 7.2 FL (6.5-10.1) 7.5 FL (6.5-10.1) Neutrophils (%) (Auto) % (45.0-75.0) % (45.0-75.0) 84.9 % (45.0-75.0) Lymphocytes (%) (Auto) % (20.0-45.0) % (20.0-45.0) 10.3 % (20.0-45.0) Monocytes (%) (Auto) % (1.0-10.0) % (1.0-10.0) 3.7 % (1.0-10.0) Eosinophils (%) (Auto) % (0.0-3.0) % (0.0-3.0) 0.8 % (0.0-3.0) Basophils (%) (Auto) % (0.0-2.0) % (0.0-2.0) 0.2 % (0.0-2.0) Differential Total Cells Counted 100 100 Neutrophils % (Manual) 82 % (45-75) 91 % (45-75) Lymphocytes % (Manual) 17 % (20-45) 7 % (20-45) Monocytes % (Manual) 1 % (1-10) 2 % (1-10) Eosinophils % (Manual) 0 % (0-3) 0 % (0-3) Basophils % (Manual) 0 % (0-2) 0 % (0-2) Band Neutrophils 0 % (0-8) 0 % (0-8) Platelet Estimate Adequate Adequate Platelet Morphology Normal Normal Hypochromasia 1+ 1+ Anisocytosis 1+ 1+ Sodium Level 133 MMOL/L (136-145) 134 MMOL/L (136-145) Potassium Level 3.0 MMOL/L (3.5-5.1) 3.9 MMOL/L (3.5-5.1) Chloride Level 99 MMOL/L (98-107) 102 MMOL/L (98-107) Carbon Dioxide Level 21 MMOL/L (21-32) 23 MMOL/L (21-32) Anion Gap 13 mmol/L (5-15) 9 mmol/L (5-15) Blood Urea Nitrogen 4 mg/dL (7-18) 3 mg/dL (7-18) Creatinine 0.8 MG/DL (0.55-1.30) 0.6 MG/DL (0.55-1.30) Estimat Glomerular Filtration Rate > 60 mL/min (>60) > 60 mL/min (>60) Glucose Level 106 MG/DL (74-106) 91 MG/DL (74-106) Calcium Level 7.2 MG/DL (8.5-10.1) 7.5 MG/DL (8.5-10.1) Uric Acid 2.7 MG/DL (2.6-7.2) Phosphorus Level 3.1 MG/DL (2.5-4.9) Magnesium Level 1.9 MG/DL (1.8-2.4) Iron Level 5 ug/dL (50-175) Total Iron Binding Capacity 244 ug/dL (250-450) Percent Iron Saturation 2 % (15-50) Unsaturated Iron Binding 239 ug/dL (112-346) Ferritin 57 NG/ML (8-388) Total Bilirubin 0.4 MG/DL (0.2-1.0) Direct Bilirubin 0.2 MG/DL (0.0-0.3) Aspartate Amino Transf (AST/SGOT) 34 U/L (15-37) Alanine Aminotransferase (ALT/SGPT) 13 U/L (12-78) Alkaline Phosphatase 69 U/L (46-116) Total Protein 5.9 G/DL (6.4-8.2) Albumin 2.5 G/DL (3.4-5.0) Vitamin B12 Level 769 PG/ML (193-986) Folate 12.5 NG/ML (8.6-58.9) Arterial Blood pH 7.473 (7.350-7.450) Arterial Blood Partial Pressure CO2 26.6 mmHg (35.0-45.0) Arterial Blood Partial Pressure O2 54.9 mmHg (75.0-100.0) Arterial Blood HCO3 19.1 mmol/L (22.0-26.0) Arterial Blood Oxygen Saturation 89.5 % (95-100) Arterial Blood Base Excess -3.7 (-2-2) Miguel Test Positive Test 01/21/20 09:23 Arterial Blood pH 7.421 (7.350-7.450) Arterial Blood Partial Pressure CO2 32.4 mmHg (35.0-45.0) Arterial Blood Partial Pressure O2 62.6 mmHg (75.0-100.0) Arterial Blood HCO3 20.6 mmol/L (22.0-26.0) Arterial Blood Oxygen Saturation 91.4 % (95-100) Arterial Blood Base Excess -3.3 (-2-2) Miguel Test Positive Height (Feet): 5 Height (Inches): 1.00 Weight (Pounds): 156 Objective Physical Exam: Vitals: reviewed General: NAD HEENT: nc, at Neck: supple Chest: clear breath sounds bilaterally Cardiovascular: RRR, no s3, s4 Abdomen: soft, nontender, nd Extremities: no cce, normal range of motion Neuro: alert and oriented Eddie Pascual MD Jan 21, 2020 21:04
--- NOTE | 2020-01-21 22:35 | NUR ---
NURSE NOTES: Enoxaparin Sub Q given at this time. [facility] down time. Sarmad RN as co signer. please refer to down time paper charting.
[2020-01-21] MEDS ORDERED: Enoxaparin 100mg Inj SUBQ SCH (23:00)
[2020-01-22] VITALS (7 sets, daily range): BP systolic 103–122; BP diastolic 49–71
[2020-01-22 05:18] LABS: HEMATOCRIT 28.9 % (37.0-47.0); HEMOGLOBIN 8.5 G/DL (12.0-16.0); MEAN CORPUSCULAR VOLUME 63 FL (80-99); PLATELET COUNT 390 K/UL (150-450); RED BLOOD COUNT 4.57 M/UL (4.20-5.40); RED CELL DISTRIBUTION WIDTH 22.2 % (11.6-14.8); WHITE BLOOD COUNT 14.7 K/UL (4.8-10.8)
[2020-01-22 05:57] LABS: ALANINE AMINOTRANSFERASE 17 U/L (12-78); ALBUMIN 2.3 G/DL (3.4-5.0); ALBUMIN/GLOBULIN RATIO 0.5 (1.0-2.7); ALKALINE PHOSPHATASE 74 U/L (46-116); ANION GAP 10 mmol/L (5-15); ASPARTATE AMINO TRANSFERASE 31 U/L (15-37); BILIRUBIN,TOTAL 0.2 MG/DL (0.2-1.0); BLOOD UREA NITROGEN 15 mg/dL (7-18); CALCIUM 7.5 MG/DL (8.5-10.1); CARBON DIOXIDE 24 MMOL/L (21-32); CHLORIDE 106 MMOL/L (98-107); CREATININE 0.6 MG/DL (0.55-1.30); PHOSPHORUS 3.9 MG/DL (2.5-4.9); SODIUM 140 MMOL/L (136-145)
[2020-01-22] MEDS ORDERED: Miralax 17gm pkt ORAL PRN ×2 (07:00→19:00)
--- NOTE | 2020-01-22 07:31 | NUR ---
NURSE NOTES: Received report from PRAVEEN Knight. Pt in bed awake and orientedx4 and able to make needs known. IV site in right forearm 22G running with D5NS @50ml/hr patent and intact. Side railx1 up per patient's request. Call light within easy reach. Bed in lowest position and locked. On 15LPM O2 via non-rebreather mask. Will continue plan of care.
--- NOTE | 2020-01-22 07:31 | NUR ---
HAND-OFF: Report given to MIN RN. Pt remains stable.
--- NOTE | 2020-01-22 09:16 | NUR ---
RD ASSESSMENT & RECOMMENDATIONS SEE CARE ACTIVITY FOR COMPLETE ASSESSMENT DAILY ESTIMATED NEEDS: Needs based on PNA, 54kg abw 25-30 kcals/kg 6002-5907 total kcals 1-1.3 g protein/kg 54-70 g total protein 25-30 mL/kg 5287-5697 total fluid mLs NUTRITION DIAGNOSIS: Altered nutrition related lab values R/T anemia as evidenced by low hgb (6.6* -> 8.5), s/p PBRC. CURRENT DIET:Regular + Ensure QD w/ dinner PO DIET RECOMMENDATIONS: REGULAR ADDITIONAL RECOMMENDATIONS: * Calibrated bedscale wt or standing wt as able for accurate CBW * Monitor PO intake- variable at this time -> monitor respiratory status, PO tolerance and acceptance on non-rebreather mask at this time -> continue Ensure once daily for now * MVI x 1
--- NOTE | 2020-01-22 09:51 | NUR ---
NURSE NOTES: Made Dr. Pascual aware of the elevation of D-dimer. Lovenox will be continued with the same dose.
--- NOTE | 2020-01-22 10:29 | Pulmonology Progress Note ---
Subjective ROS Limited/Unobtainable: Yes Interval Events: Remains on NRBM Constitutional: Reports: anorexia HEENT: Repors: no symptoms Respiratory: Reports: no symptoms Cardiovascular: Reports: no symptoms Gastrointestinal/Abdominal: Reports: no symptoms Genitourinary: Reports: no symptoms Musculoskeletal: Reports: pain Allergies: Coded Allergies: No Known Allergies (Unverified , 10/19/15) All Systems: reviewed and negative except above Objective Last 24 Hour Vital Signs Date Time Temp Pulse Resp B/P (MAP) Pulse Ox O2 Delivery O2 Flow Rate FiO2 01/22/20 08:00 97.3 59 20 122/53 (76) 92 01/22/20 08:00 63 01/22/20 08:00 Non-Rebreather 15.0 01/22/20 07:00 92 Non-Rebreather 15.0 100 01/22/20 04:00 92 01/22/20 04:00 97.9 68 20 122/65 (84) 97 01/22/20 04:00 Non-Rebreather 15.0 01/22/20 00:00 Non-Rebreather 15.0 01/22/20 00:00 97.8 78 20 113/68 (83) 96 01/22/20 00:00 64 01/21/20 21:00 Non-Rebreather 15.0 01/21/20 20:00 Non-Rebreather 15.0 01/21/20 20:00 65 01/21/20 20:00 95 Non-Rebreather 15.0 100 01/21/20 20:00 97.7 78 20 118/73 (88) 96 01/21/20 16:18 57 01/21/20 16:00 97.6 78 22 128/71 (90) 94 01/21/20 16:00 Non-Rebreather 15.0 01/21/20 15:25 Non-Rebreather 15.0 01/21/20 12:00 96.3 60 22 112/68 (83) 97 Intake and Output 01/21/20 01/22/20 19:00 07:00 Intake Total 505 ml 160 ml Balance 505 ml 160 ml Intake Oral 300 ml IV Total 205 ml 160 ml # Voids 2 # Bowel Movements 2 General Appearance: no acute distress HEENT: normocephalic Respiratory: chest wall non-tender, lungs clear Cardiovascular: normal peripheral pulses Abdomen: normal bowel sounds, soft, non tender Extremities: no cyanosis, no clubbing, no edema Laboratory Tests 01/21/20 21:29: D-Dimer 4.80H 01/22/20 03:26: White Blood Count 14.7H, Red Blood Count 4.57, Hemoglobin 8.5L, Hematocrit 28.9L , Mean Corpuscular Volume 63L, Mean Corpuscular Hemoglobin 18.6L, Mean Corpuscular Hemoglobin Concent 29.4L, Red Cell Distribution Width 22.2H, Platelet Count 390, Mean Platelet Volume 8.3, Neutrophils (%) (Auto) , Lymphocytes (%) (Auto) , Monocytes (%) (Auto) , Eosinophils (%) (Auto) , Basophils (%) (Auto) , Differential Total Cells Counted 100, Neutrophils % ( Manual) 88H, Lymphocytes % (Manual) 9L, Monocytes % (Manual) 3, Eosinophils % ( Manual) 0, Basophils % (Manual) 0, Band Neutrophils 0, Platelet Estimate Adequate, Platelet Morphology Normal, Polychromasia 1+, Hypochromasia 1+, Anisocytosis 3+, Microcytosis 2+, Sodium Level 140, Potassium Level 4.0, Chloride Level 106, Carbon Dioxide Level 24, Anion Gap 10, Blood Urea Nitrogen 15, Creatinine 0.6, Estimat Glomerular Filtration Rate > 60, Glucose Level 125H , Uric Acid 1.9L, Calcium Level 7.5L, Phosphorus Level 3.9, Magnesium Level 2.0 , Total Bilirubin 0.2, Aspartate Amino Transf (AST/SGOT) 31, Alanine Aminotransferase (ALT/SGPT) 17, Alkaline Phosphatase 74, C-Reactive Protein, Quantitative 18.3H, Total Protein 6.6, Albumin 2.3L, Globulin 4.3, Albumin/ Globulin Ratio 0.5L Current Medications Medications (Trade) Dose Ordered Sig/Bhargav Route PRN Reason Start Time Stop Time Status Last Admin Dose Admin Acetaminophen (Tylenol) 650 mg Q6H PRN ORAL Temp >100.5 01/21/20 15:55 02/17/20 15:54 Acetaminophen (Tylenol) 650 mg Q6HR PRN ORAL For Pain 01/21/20 16:00 02/20/20 15:59 01/21/20 16:03 Albuterol/ Ipratropium (Albuterol/ Ipratropium) 3 ml Q6H PRN HHN Shortness of Breath 01/21/20 21:00 01/23/20 02:59 Ceftriaxone Sodium 2 gm/ Dextrose 55 ml @ 110 mls/hr Q24H IVPB 01/21/20 16:00 01/28/20 15:59 01/21/20 16:00 Dexamethasone (Decadron) 6 mg Q24H ORAL 01/22/20 11:00 01/28/20 12:00 Dextrose/Sodium Chloride 1,000 ml @ 50 mls/hr Q20H IV 01/21/20 15:30 02/18/20 09:29 01/21/20 15:56 Enoxaparin Sodium (Lovenox) 100 mg Q24H SUBQ 01/21/20 23:00 04/17/20 22:59 Guaifenesin/ Codeine Phosphate (Robitussin with codeine) 5 ml Q6H PRN ORAL For Cough 01/21/20 15:56 02/17/20 15:55 01/21/20 20:32 Iron Sucrose 100 mg/Sodium Chloride 60 ml @ 240 mls/hr BEDTIME IV 01/21/20 21:00 01/25/20 21:14 01/21/20 21:50 Ondansetron HCl (Zofran) 4 mg Q6H PRN IVP Nausea & Vomiting 01/21/20 15:56 02/17/20 15:55 Polyethylene Glycol (Miralax) 17 gm DAILYPRN PRN ORAL Constipation 01/22/20 07:00 02/20/20 06:59 Remdesivir 100 mg/ Sodium Chloride 250 ml @ 250 mls/hr Q24H IV 01/22/20 10:30 01/24/20 11:29 Assessment/Plan Assessment/Plan IMPRESSION: 1. Acvute hypoxemic respiratory failutre 2. COVID-19 pneumonia. DISCUSSION: Continue IV fluids and antibiotics. Seen by ID. Continue oxygen and pulmonary hygiene. I will follow carefully. S/p remdesivir and dexamethasone Jerald Bess Omar Syed MD Jan 22, 2020 10:29
[2020-01-22] MEDS ORDERED: Remdesivir 100mg 100 MG in NS 230 ML IV SCH (10:30)
--- NOTE | 2020-01-22 10:31 | NUR ---
APPLICATION PROJECT LEADER NOTE CALL RECEIVED FROM DEE WITH [facility] @ [phone] REQUESTING WEEKEND CLINICAL REVIEWS AND COVID-19 RESULT FAXED TO [phone]
--- NOTE | 2020-01-22 10:39 | Infectious Diseases Prog Note ---
Assessment/Plan Assessment/Plan antibiotics : remdesivir 6..20 - A 1. Covid 19 pneumonia on 15 liters, O2 97 percent saturation 2. leucocytosis increased, likely secondary to steroids 3. anemia P 1. continue remdesivir EUA day 3 2. continue dexamethasone day 4 3. continue isolation 4. will follow up cultures Subjective Constitutional: Denies: fever, chills Respiratory: Reports: shortness of breath - decreased, dry cough - decreased Gastrointestinal/Abdominal: Denies: nausea, vomiting, diarrhea Musculoskeletal: Denies: pain Allergies: Coded Allergies: No Known Allergies (Unverified , 10/19/15) Objective Last 24 Hour Vital Signs Date Time Temp Pulse Resp B/P (MAP) Pulse Ox O2 Delivery O2 Flow Rate FiO2 01/22/20 08:00 97.3 59 20 122/53 (76) 92 01/22/20 08:00 63 01/22/20 08:00 Non-Rebreather 15.0 01/22/20 07:00 92 Non-Rebreather 15.0 100 01/22/20 04:00 92 01/22/20 04:00 97.9 68 20 122/65 (84) 97 01/22/20 04:00 Non-Rebreather 15.0 01/22/20 00:00 Non-Rebreather 15.0 01/22/20 00:00 97.8 78 20 113/68 (83) 96 01/22/20 00:00 64 01/21/20 21:00 Non-Rebreather 15.0 01/21/20 20:00 Non-Rebreather 15.0 01/21/20 20:00 65 01/21/20 20:00 95 Non-Rebreather 15.0 100 01/21/20 20:00 97.7 78 20 118/73 (88) 96 01/21/20 16:18 57 01/21/20 16:00 97.6 78 22 128/71 (90) 94 01/21/20 16:00 Non-Rebreather 15.0 01/21/20 15:25 Non-Rebreather 15.0 01/21/20 12:00 96.3 60 22 112/68 (83) 97 Height (Feet): 5 Height (Inches): 1.00 Weight (Pounds): 156 Laboratory Tests Test 01/21/20 21:29 01/22/20 03:26 D-Dimer 4.80 mg/L FEU (0.00-0.49) H White Blood Count 14.7 K/UL (4.8-10.8) H Red Blood Count 4.57 M/UL (4.20-5.40) Hemoglobin 8.5 G/DL (12.0-16.0) L Hematocrit 28.9 % (37.0-47.0) L Mean Corpuscular Volume 63 FL (80-99) L Mean Corpuscular Hemoglobin 18.6 PG (27.0-31.0) L Mean Corpuscular Hemoglobin Concent 29.4 G/DL (32.0-36.0) L Red Cell Distribution Width 22.2 % (11.6-14.8) H Platelet Count 390 K/UL (150-450) Mean Platelet Volume 8.3 FL (6.5-10.1) Neutrophils (%) (Auto) % (45.0-75.0) Lymphocytes (%) (Auto) % (20.0-45.0) Monocytes (%) (Auto) % (1.0-10.0) Eosinophils (%) (Auto) % (0.0-3.0) Basophils (%) (Auto) % (0.0-2.0) Differential Total Cells Counted 100 Neutrophils % (Manual) 88 % (45-75) H Lymphocytes % (Manual) 9 % (20-45) L Monocytes % (Manual) 3 % (1-10) Eosinophils % (Manual) 0 % (0-3) Basophils % (Manual) 0 % (0-2) Band Neutrophils 0 % (0-8) Platelet Estimate Adequate Platelet Morphology Normal Polychromasia 1+ Hypochromasia 1+ Anisocytosis 3+ Microcytosis 2+ Sodium Level 140 MMOL/L (136-145) Potassium Level 4.0 MMOL/L (3.5-5.1) Chloride Level 106 MMOL/L (98-107) Carbon Dioxide Level 24 MMOL/L (21-32) Anion Gap 10 mmol/L (5-15) Blood Urea Nitrogen 15 mg/dL (7-18) Creatinine 0.6 MG/DL (0.55-1.30) Estimat Glomerular Filtration Rate > 60 mL/min (>60) Glucose Level 125 MG/DL (74-106) H Uric Acid 1.9 MG/DL (2.6-7.2) L Calcium Level 7.5 MG/DL (8.5-10.1) L Phosphorus Level 3.9 MG/DL (2.5-4.9) Magnesium Level 2.0 MG/DL (1.8-2.4) Total Bilirubin 0.2 MG/DL (0.2-1.0) Aspartate Amino Transf (AST/SGOT) 31 U/L (15-37) Alanine Aminotransferase (ALT/SGPT) 17 U/L (12-78) Alkaline Phosphatase 74 U/L (46-116) C-Reactive Protein, Quantitative 18.3 mg/dL (0.00-0.90) H Total Protein 6.6 G/DL (6.4-8.2) Albumin 2.3 G/DL (3.4-5.0) L Globulin 4.3 g/dL Albumin/Globulin Ratio 0.5 (1.0-2.7) L Current Medications Medications (Trade) Dose Ordered Sig/Bhargav Route PRN Reason Start Time Stop Time Status Last Admin Dose Admin Acetaminophen (Tylenol) 650 mg Q6H PRN ORAL Temp >100.5 01/21/20 15:55 02/17/20 15:54 Acetaminophen (Tylenol) 650 mg Q6HR PRN ORAL For Pain 01/21/20 16:00 02/20/20 15:59 01/21/20 16:03 Albuterol/ Ipratropium (Albuterol/ Ipratropium) 3 ml Q6H PRN HHN Shortness of Breath 01/21/20 21:00 01/23/20 02:59 Ceftriaxone Sodium 2 gm/ Dextrose 55 ml @ 110 mls/hr Q24H IVPB 01/21/20 16:00 01/28/20 15:59 01/21/20 16:00 Dexamethasone (Decadron) 6 mg Q24H ORAL 01/22/20 11:00 01/28/20 12:00 Dextrose/Sodium Chloride 1,000 ml @ 50 mls/hr Q20H IV 01/21/20 15:30 02/18/20 09:29 01/21/20 15:56 Enoxaparin Sodium (Lovenox) 100 mg Q24H SUBQ 01/21/20 23:00 04/17/20 22:59 Guaifenesin/ Codeine Phosphate (Robitussin with codeine) 5 ml Q6H PRN ORAL For Cough 01/21/20 15:56 02/17/20 15:55 01/21/20 20:32 Iron Sucrose 100 mg/Sodium Chloride 60 ml @ 240 mls/hr BEDTIME IV 01/21/20 21:00 01/25/20 21:14 01/21/20 21:50 Ondansetron HCl (Zofran) 4 mg Q6H PRN IVP Nausea & Vomiting 01/21/20 15:56 02/17/20 15:55 Polyethylene Glycol (Miralax) 17 gm DAILYPRN PRN ORAL Constipation 01/22/20 07:00 02/20/20 06:59 Remdesivir 100 mg/ Sodium Chloride 250 ml @ 250 mls/hr Q24H IV 01/22/20 10:30 01/24/20 11:29 Pati Fonseca MD Jan 22, 2020 10:39
[2020-01-22] MEDS: D5NS 1,000 ML IV SCH ×2 (11:07→19:00)
--- NOTE | 2020-01-22 11:43 | Nephrology Progress Note ---
Assessment/Plan Problem List: (1) Hypokalemia (2) Anemia Assessment: Iron deficiency (3) Suspected COVID-19 virus infection Assessment Hypokalemia, likely depletional Severe anemia, low iron Suspected COVID-19 infection Elevated inflammatory markers Plan Lab reviewed. Will monitor renal parameters and electrolytes. Continue per consultants. On Remdesivir and Decadron Change hypotonic solution to isotonic solution Potassium supplements IV iron Patient also transfused Continue per consultants Per orders Subjective ROS Limited/Unobtainable: No Constitutional: Reports: malaise Objective Objective Last 24 Hour Vital Signs Date Time Temp Pulse Resp B/P (MAP) Pulse Ox O2 Delivery O2 Flow Rate FiO2 01/22/20 08:00 97.3 59 20 122/53 (76) 92 01/22/20 08:00 63 01/22/20 08:00 Non-Rebreather 15.0 01/22/20 07:00 92 Non-Rebreather 15.0 100 01/22/20 04:00 92 01/22/20 04:00 97.9 68 20 122/65 (84) 97 01/22/20 04:00 Non-Rebreather 15.0 01/22/20 00:00 Non-Rebreather 15.0 01/22/20 00:00 97.8 78 20 113/68 (83) 96 01/22/20 00:00 64 01/21/20 21:00 Non-Rebreather 15.0 01/21/20 20:00 Non-Rebreather 15.0 01/21/20 20:00 65 01/21/20 20:00 95 Non-Rebreather 15.0 100 01/21/20 20:00 97.7 78 20 118/73 (88) 96 01/21/20 16:18 57 01/21/20 16:00 97.6 78 22 128/71 (90) 94 01/21/20 16:00 Non-Rebreather 15.0 01/21/20 15:25 Non-Rebreather 15.0 01/21/20 12:00 96.3 60 22 112/68 (83) 97 Intake and Output 01/21/20 01/22/20 19:00 07:00 Intake Total 505 ml 160 ml Balance 505 ml 160 ml Intake Oral 300 ml IV Total 205 ml 160 ml # Voids 2 # Bowel Movements 2 Laboratory Tests 01/21/20 21:29: D-Dimer 4.80H 01/22/20 03:26: White Blood Count 14.7H, Red Blood Count 4.57, Hemoglobin 8.5L, Hematocrit 28.9L , Mean Corpuscular Volume 63L, Mean Corpuscular Hemoglobin 18.6L, Mean Corpuscular Hemoglobin Concent 29.4L, Red Cell Distribution Width 22.2H, Platelet Count 390, Mean Platelet Volume 8.3, Neutrophils (%) (Auto) , Lymphocytes (%) (Auto) , Monocytes (%) (Auto) , Eosinophils (%) (Auto) , Basophils (%) (Auto) , Differential Total Cells Counted 100, Neutrophils % ( Manual) 88H, Lymphocytes % (Manual) 9L, Monocytes % (Manual) 3, Eosinophils % ( Manual) 0, Basophils % (Manual) 0, Band Neutrophils 0, Platelet Estimate Adequate, Platelet Morphology Normal, Polychromasia 1+, Hypochromasia 1+, Anisocytosis 3+, Microcytosis 2+, Sodium Level 140, Potassium Level 4.0, Chloride Level 106, Carbon Dioxide Level 24, Anion Gap 10, Blood Urea Nitrogen 15, Creatinine 0.6, Estimat Glomerular Filtration Rate > 60, Glucose Level 125H , Uric Acid 1.9L, Calcium Level 7.5L, Phosphorus Level 3.9, Magnesium Level 2.0 , Total Bilirubin 0.2, Aspartate Amino Transf (AST/SGOT) 31, Alanine Aminotransferase (ALT/SGPT) 17, Alkaline Phosphatase 74, C-Reactive Protein, Quantitative 18.3H, Total Protein 6.6, Albumin 2.3L, Globulin 4.3, Albumin/ Globulin Ratio 0.5L Height (Feet): 5 Height (Inches): 1.00 Weight (Pounds): 156 General Appearance: no apparent distress Cardiovascular: normal rate Respiratory/Chest: decreased breath sounds Abdomen: distended Objective No change Kristian Barry MD Jan 22, 2020 11:43
--- NOTE | 2020-01-22 11:50 | NUR ---
*-* INSURANCE *-* UPDATED CLINICALS HAVE BEEN FAXED TO: ILANA HENDRICKS [phone] F:[phone]
--- NOTE | 2020-01-22 13:15 | NUR ---
CASE MANAGEMENT: REVIEW SI: PNA . COVID-19 T 97.3 HR 63 RR 20 BP 122/53 SAT 92% NON-REBREATHER FLOW RATE 15.0 WBC 14.7 H/H 8.4/28.9 CALCIUM 7.5 IS: D5 NS IVF @ 50ML/HR REMDESIVIR IV Q24HR VENOFER IV QHS CEFTRIAXONE IV Q24HR LOVENOX SUBQ Q24HR STEP DOWN UNIT STATUS DCP: PATIENT IS FROM HOME
[2020-01-22] MEDS: guaiFENesin w/Codeine 5ml Liq ud ORAL PRN ×2 (15:44→23:19)
[2020-01-22] MEDS: cefTRIAXone 2 GM in D5W 55 ML IVPB SCH (15:44)
--- NOTE | 2020-01-22 16:51 | Hematology/Onc Progress Note ---
Assessment/Plan Assessment/Plan # Anemia of iron deficiency, unspecified rule out gi bleed --> obtain anemia panel, has been reviewed --> have begun on iv iron and continue x 5 doses --> review if occult blood is + (review this to make sure +). Can consider gi eval --> hgb goal is >7, transfuse as needed --> trend CBC daily to make sure no major acute drop --> no evidence of hemolysis noted --> hgb trend: 8.5 # Leukocytosis/elevated white blood cell count, unspecified likely related to underlying stress reaction, smoking v covid19 infection --> have reviewed peripheral smear and bandemia/neutrophilia noted --> continue antibiotics if they have been started by ID team: cftx --> monitor for resolution --> wbc trend 19-->9-->14.7 # Elecated ddimer --> will recheck --> likely covid related --> is on lovenox for now --> 01/20 jaden duplex negative # Hypokalemia, likely depletional --> per renal, replete # Suspected COVID-19 infection # Elevated inflammatory markers # Dvt ppx with lovenox Appreciate consultaiton and agnes Rn Subjective Allergies: Coded Allergies: No Known Allergies (Unverified , 10/19/15) Subjective 01/20 no events, has been started on iv iron, will recheck ddimer 01/21 jaden duplex negative for dvt, nrb o2, hgb 8.5, no distress Objective Objective Current Medications Medications (Trade) Dose Ordered Sig/Bhargav Route PRN Reason Start Time Stop Time Status Last Admin Dose Admin Acetaminophen (Tylenol) 650 mg Q6H PRN ORAL Temp >100.5 01/21/20 15:55 02/17/20 15:54 Acetaminophen (Tylenol) 650 mg Q6HR PRN ORAL For Pain 01/21/20 16:00 02/20/20 15:59 01/22/20 16:00 Albuterol/ Ipratropium (Albuterol/ Ipratropium) 3 ml Q6H PRN HHN Shortness of Breath 01/21/20 21:00 01/23/20 02:59 Ceftriaxone Sodium 2 gm/ Dextrose 55 ml @ 110 mls/hr Q24H IVPB 01/21/20 16:00 01/28/20 15:59 01/22/20 15:44 Dexamethasone (Decadron) 6 mg Q24H ORAL 01/22/20 11:00 01/28/20 12:00 01/22/20 11:07 Dextrose/Sodium Chloride 1,000 ml @ 50 mls/hr Q20H IV 01/21/20 15:30 02/18/20 09:29 01/22/20 11:07 Enoxaparin Sodium (Lovenox) 100 mg Q24H SUBQ 01/21/20 23:00 04/17/20 22:59 Guaifenesin/ Codeine Phosphate (Robitussin with codeine) 5 ml Q6H PRN ORAL For Cough 01/21/20 15:56 02/17/20 15:55 01/22/20 15:44 Iron Sucrose 100 mg/Sodium Chloride 60 ml @ 240 mls/hr BEDTIME IV 01/21/20 21:00 01/25/20 21:14 01/21/20 21:50 Ondansetron HCl (Zofran) 4 mg Q6H PRN IVP Nausea & Vomiting 01/21/20 15:56 02/17/20 15:55 Polyethylene Glycol (Miralax) 17 gm DAILYPRN PRN ORAL Constipation 01/22/20 07:00 02/20/20 06:59 Remdesivir 100 mg/ Sodium Chloride 250 ml @ 250 mls/hr Q24H IV 01/22/20 10:30 01/24/20 11:29 01/22/20 10:40 Last 24 Hour Vital Signs Date Time Temp Pulse Resp B/P (MAP) Pulse Ox O2 Delivery O2 Flow Rate FiO2 01/22/20 16:00 58 01/22/20 12:00 60 01/22/20 12:00 Non-Rebreather 15.0 01/22/20 12:00 98.0 61 20 120/70 (87) 98 01/22/20 08:00 97.3 59 20 122/53 (76) 92 01/22/20 08:00 63 01/22/20 08:00 Non-Rebreather 15.0 01/22/20 07:00 92 Non-Rebreather 15.0 100 01/22/20 04:00 92 01/22/20 04:00 97.9 68 20 122/65 (84) 97 01/22/20 04:00 Non-Rebreather 15.0 01/22/20 00:00 Non-Rebreather 15.0 01/22/20 00:00 97.8 78 20 113/68 (83) 96 01/22/20 00:00 64 01/21/20 21:00 Non-Rebreather 15.0 01/21/20 20:00 Non-Rebreather 15.0 01/21/20 20:00 65 01/21/20 20:00 95 Non-Rebreather 15.0 100 01/21/20 20:00 97.7 78 20 118/73 (88) 96 01/21/20 16:18 57 01/21/20 16:00 97.6 78 22 128/71 (90) 94 01/21/20 16:00 Non-Rebreather 15.0 01/21/20 15:25 Non-Rebreather 15.0 01/21/20 12:00 96.3 60 22 112/68 (83) 97 01/21/20 09:00 Non-Rebreather 15.0 01/21/20 08:00 98.5 60 20 112/63 (79) 100 01/21/20 04:00 97.5 68 18 115/75 (88) 93 01/21/20 00:00 98.0 72 20 105/55 (72) 93 01/20/20 21:00 Non-Rebreather 15.0 01/20/20 20:00 97.8 75 20 105/65 (78) 93 Intake and Output 01/21/20 01/22/20 19:00 07:00 Intake Total 505 ml 160 ml Balance 505 ml 160 ml Intake Oral 300 ml IV Total 205 ml 160 ml # Voids 2 # Bowel Movements 2 Labs Test 01/19/20 17:09 01/20/20 05:20 01/21/20 09:23 01/21/20 21:29 Arterial Blood pH 7.473 (7.350-7.450) 7.421 (7.350-7.450) Arterial Blood Partial Pressure CO2 26.6 mmHg (35.0-45.0) 32.4 mmHg (35.0-45.0) Arterial Blood Partial Pressure O2 54.9 mmHg (75.0-100.0) 62.6 mmHg (75.0-100.0) Arterial Blood HCO3 19.1 mmol/L (22.0-26.0) 20.6 mmol/L (22.0-26.0) Arterial Blood Oxygen Saturation 89.5 % (95-100) 91.4 % (95-100) Arterial Blood Base Excess -3.7 (-2-2) -3.3 (-2-2) Miguel Test Positive Positive White Blood Count 11.1 K/UL (4.8-10.8) Red Blood Count 4.53 M/UL (4.20-5.40) Hemoglobin 8.4 G/DL (12.0-16.0) Hematocrit 28.8 % (37.0-47.0) Mean Corpuscular Volume 64 FL (80-99) Mean Corpuscular Hemoglobin 18.4 PG (27.0-31.0) Mean Corpuscular Hemoglobin Concent 29.0 G/DL (32.0-36.0) Red Cell Distribution Width 21.6 % (11.6-14.8) Platelet Count 317 K/UL (150-450) Mean Platelet Volume 7.5 FL (6.5-10.1) Neutrophils (%) (Auto) 84.9 % (45.0-75.0) Lymphocytes (%) (Auto) 10.3 % (20.0-45.0) Monocytes (%) (Auto) 3.7 % (1.0-10.0) Eosinophils (%) (Auto) 0.8 % (0.0-3.0) Basophils (%) (Auto) 0.2 % (0.0-2.0) Sodium Level 134 MMOL/L (136-145) Potassium Level 3.9 MMOL/L (3.5-5.1) Chloride Level 102 MMOL/L (98-107) Carbon Dioxide Level 23 MMOL/L (21-32) Anion Gap 9 mmol/L (5-15) Blood Urea Nitrogen 3 mg/dL (7-18) Creatinine 0.6 MG/DL (0.55-1.30) Estimat Glomerular Filtration Rate > 60 mL/min (>60) Glucose Level 91 MG/DL (74-106) Calcium Level 7.5 MG/DL (8.5-10.1) D-Dimer 4.80 mg/L FEU (0.00-0.49) Test 01/22/20 03:26 White Blood Count 14.7 K/UL (4.8-10.8) Red Blood Count 4.57 M/UL (4.20-5.40) Hemoglobin 8.5 G/DL (12.0-16.0) Hematocrit 28.9 % (37.0-47.0) Mean Corpuscular Volume 63 FL (80-99) Mean Corpuscular Hemoglobin 18.6 PG (27.0-31.0) Mean Corpuscular Hemoglobin Concent 29.4 G/DL (32.0-36.0) Red Cell Distribution Width 22.2 % (11.6-14.8) Platelet Count 390 K/UL (150-450) Mean Platelet Volume 8.3 FL (6.5-10.1) Neutrophils (%) (Auto) % (45.0-75.0) Lymphocytes (%) (Auto) % (20.0-45.0) Monocytes (%) (Auto) % (1.0-10.0) Eosinophils (%) (Auto) % (0.0-3.0) Basophils (%) (Auto) % (0.0-2.0) Differential Total Cells Counted 100 Neutrophils % (Manual) 88 % (45-75) Lymphocytes % (Manual) 9 % (20-45) Monocytes % (Manual) 3 % (1-10) Eosinophils % (Manual) 0 % (0-3) Basophils % (Manual) 0 % (0-2) Band Neutrophils 0 % (0-8) Platelet Estimate Adequate Platelet Morphology Normal Polychromasia 1+ Hypochromasia 1+ Anisocytosis 3+ Microcytosis 2+ Sodium Level 140 MMOL/L (136-145) Potassium Level 4.0 MMOL/L (3.5-5.1) Chloride Level 106 MMOL/L (98-107) Carbon Dioxide Level 24 MMOL/L (21-32) Anion Gap 10 mmol/L (5-15) Blood Urea Nitrogen 15 mg/dL (7-18) Creatinine 0.6 MG/DL (0.55-1.30) Estimat Glomerular Filtration Rate > 60 mL/min (>60) Glucose Level 125 MG/DL (74-106) Uric Acid 1.9 MG/DL (2.6-7.2) Calcium Level 7.5 MG/DL (8.5-10.1) Phosphorus Level 3.9 MG/DL (2.5-4.9) Magnesium Level 2.0 MG/DL (1.8-2.4) Total Bilirubin 0.2 MG/DL (0.2-1.0) Aspartate Amino Transf (AST/SGOT) 31 U/L (15-37) Alanine Aminotransferase (ALT/SGPT) 17 U/L (12-78) Alkaline Phosphatase 74 U/L (46-116) C-Reactive Protein, Quantitative 18.3 mg/dL (0.00-0.90) Total Protein 6.6 G/DL (6.4-8.2) Albumin 2.3 G/DL (3.4-5.0) Globulin 4.3 g/dL Albumin/Globulin Ratio 0.5 (1.0-2.7) Height (Feet): 5 Height (Inches): 1.00 Weight (Pounds): 156 Objective Physical Exam: Vitals: reviewed General: NAD HEENT: nc, at Neck: supple Chest: clear breath sounds bilaterally, nrb++ Cardiovascular: RRR, no s3, s4 Abdomen: soft, nontender, nd Extremities: no cce, normal range of motion Neuro: alert and oriented Eddie Pascual MD Jan 22, 2020 16:51
--- NOTE | 2020-01-22 18:10 | NUR ---
HAND-OFF: Report given to PRAVEEN Bonilla. Pt remains stable.
--- NOTE | 2020-01-22 18:15 | NUR ---
NURSE NOTES: Received patient from PRAVEEN De La O from [facility]. Awake in bed. A and O x4. Non rebreather mask in place, connected to O2 at 15L, no acute distress. IV line on RFA g22 kimmie D5 NS at 50cc/hr. Ambulatory with steady gait, continent of bowel and bladder. No skin issues noted. Belongings accounted for. HOB elevated. Bed locked in low position. Call light within reach. Will continue plan of care. Still for OB stool collection once monthly period is over.
[2020-01-22] MEDS ORDERED: Albuterol/Ipratropium 3ml neb HHN PRN (19:00)
--- NOTE | 2020-01-22 19:40 | NUR ---
HAND-OFF: Report given to Michelle MORTON, Yris MORTON.
--- NOTE | 2020-01-22 19:45 | NUR ---
NURSE NOTES: Received report from PRAVEEN Bonilla. Patient is awake and oriented x 4. Able to make needs known. She is on non-rebreather mask at 15 L/min. Denies pain at this time. monitoring tech is intact and functioning. Addendum: 01/22/20 at 2023 by Yris Razo RN Call light and bedside table within reach. Will continue plan of care.
[2020-01-22] MEDS: Iron Sucrose 100 MG in NS 55 ML IV SCH (21:15)
--- NOTE | 2020-01-22 21:36 | General Progress Note ---
Assessment/Plan Problem List: (1) Anemia ICD Codes: D64.9 - Anemia, unspecified SNOMED: 170938486 Qualifiers: Qualified Codes: D64.9 - Anemia, unspecified (2) Pneumonia ICD Codes: J18.9 - Pneumonia, unspecified organism SNOMED: 746602586 Qualifiers: Qualified Codes: J18.9 - Pneumonia, unspecified organism (3) Elevated C-reactive protein ICD Codes: R79.82 - Elevated C-reactive protein (CRP) SNOMED: 032002602780924 (4) Elevated d-dimer ICD Codes: R79.89 - Other specified abnormal findings of blood chemistry SNOMED: 857415241 (5) Suspected COVID-19 virus infection ICD Codes: Z20.828 - Contact with and (suspected) exposure to other viral communicable diseases SNOMED: 149766566 (6) Malnutrition ICD Codes: E46 - Unspecified protein-calorie malnutrition SNOMED: 69256666 Status: progressing, unchanged Assessment/Plan: positive covid pna pna no wheezing no fever no acute events elevated d dimer Subjective ROS Limited/Unobtainable: Yes Allergies: Coded Allergies: No Known Allergies (Unverified , 10/19/15) Objective Last 24 Hour Vital Signs Date Time Temp Pulse Resp B/P (MAP) Pulse Ox O2 Delivery O2 Flow Rate FiO2 01/22/20 18:15 95.2 59 20 103/49 (67) 94 01/22/20 16:00 Non-Rebreather 15.0 01/22/20 16:00 58 01/22/20 16:00 98.2 59 20 118/71 (87) 96 01/22/20 12:00 60 01/22/20 12:00 Non-Rebreather 15.0 01/22/20 12:00 98.0 61 20 120/70 (87) 98 01/22/20 08:00 97.3 59 20 122/53 (76) 92 01/22/20 08:00 63 01/22/20 08:00 Non-Rebreather 15.0 01/22/20 07:00 92 Non-Rebreather 15.0 100 01/22/20 04:00 92 01/22/20 04:00 97.9 68 20 122/65 (84) 97 01/22/20 04:00 Non-Rebreather 15.0 01/22/20 00:00 Non-Rebreather 15.0 01/22/20 00:00 97.8 78 20 113/68 (83) 96 01/22/20 00:00 64 Intake and Output 01/21/20 01/22/20 19:00 07:00 Intake Total 505 ml 160 ml Balance 505 ml 160 ml Intake Oral 300 ml IV Total 205 ml 160 ml # Voids 2 # Bowel Movements 2 Laboratory Tests 01/22/20 03:26: White Blood Count 14.7H, Red Blood Count 4.57, Hemoglobin 8.5L, Hematocrit 28.9L , Mean Corpuscular Volume 63L, Mean Corpuscular Hemoglobin 18.6L, Mean Corpuscular Hemoglobin Concent 29.4L, Red Cell Distribution Width 22.2H, Platelet Count 390, Mean Platelet Volume 8.3, Neutrophils (%) (Auto) , Lymphocytes (%) (Auto) , Monocytes (%) (Auto) , Eosinophils (%) (Auto) , Basophils (%) (Auto) , Differential Total Cells Counted 100, Neutrophils % ( Manual) 88H, Lymphocytes % (Manual) 9L, Monocytes % (Manual) 3, Eosinophils % ( Manual) 0, Basophils % (Manual) 0, Band Neutrophils 0, Platelet Estimate Adequate, Platelet Morphology Normal, Polychromasia 1+, Hypochromasia 1+, Anisocytosis 3+, Microcytosis 2+, Sodium Level 140, Potassium Level 4.0, Chloride Level 106, Carbon Dioxide Level 24, Anion Gap 10, Blood Urea Nitrogen 15, Creatinine 0.6, Estimat Glomerular Filtration Rate > 60, Glucose Level 125H , Uric Acid 1.9L, Calcium Level 7.5L, Phosphorus Level 3.9, Magnesium Level 2.0 , Total Bilirubin 0.2, Aspartate Amino Transf (AST/SGOT) 31, Alanine Aminotransferase (ALT/SGPT) 17, Alkaline Phosphatase 74, C-Reactive Protein, Quantitative 18.3H, Total Protein 6.6, Albumin 2.3L, Globulin 4.3, Albumin/ Globulin Ratio 0.5L Height (Feet): 5 Height (Inches): 1.00 Weight (Pounds): 156 Chintan Mills MD Jan 22, 2020 21:36
--- NOTE | 2020-01-22 22:30 | CDS Physician Query ---
PLEASE COMPLETE THE FORM BEFORE SIGNING Dear Dr. Roe Ling M.D. Date 01/22/2020 CDI/CDS; David Pena Exercise your independent professional judgment when responding to query. Questions asked do not imply particular answer is desired or expected. We greatly appreciate your clarification on this issue. Clinical Documentation States: "39-year-old female, who lives at home, presented to [facility] last night with history of increased shortness of breath, was known to have pneumonia and possible COVID " [ Pulm PN Roe Ling M.D.01/19/20 05: 33] ASSESSMENT: Possible pneumonia, suspect COVID, Shortness of breath, Anemia, Malnutrition. Clinical Findings Show: Vitals: 01/16 01/17 01/18 T/F 100.8 99.6 102.4 OR: 104 96 102 RR: 24 21 20 SPO2: 63.1 Pulse Oximetry: 98 91 90 Treatment : Oxygen Delivery Method - Non-Rebreather 15.0 L/min ( 01/20-01/21) Medication: Albuterol HHN 3ml ( 01/17-01/20) , Please clarify if the patient had any of the following conditions based on the above clinical findings: []Respiratory Failure [x] Acute [] Chronic (on home O2) []Acute on Chronic [] Acute Respiratory Distress [] Acute Respiratory Insufficiency [] Respiratory failure due to trauma [] Respiratory insufficiency due to trauma [] Unable to determine [] Other: Condition Present on Admission: [x] Yes [] No []Clinically Undeterminable Please also document in your Progress Notes and/or Discharge Summary and indicate if the condition was present on admission. PETARD
[2020-01-22] MEDS ORDERED: Enoxaparin 100mg Inj SUBQ SCH (23:00)
--- NOTE | 2020-01-22 23:00 | NUR ---
NURSE NOTES: Unable to access previous IV site. New IV site insertion done on Left hand 22gauge. Intact, no pain, no swelling no infiltration.
[2020-01-23] VITALS: BP 125/64
[2020-01-23 04:00] VITALS: BP 123/66
--- NOTE | 2020-01-23 07:21 | NUR ---
NURSE NOTES: Received report and patient from Yris MORTON in bed. Denies any pain at this time. No s/s of respiratory discomfort or distress noted. Noted patient has non-productive dry cough. IV on left hand is intact and patent. Bed is in lowest position with bedside rails up x2, brakes engaged for safety. Call light is within reach. Will continue with the plan of care.
--- NOTE | 2020-01-23 07:45 | NUR ---
NURSE NOTES: Gave report to PRAVEEN Ronquillo. Patient is stable at this time. Endorsed plan of care.
[2020-01-23 08:00] VITALS: BP 119/75
--- NOTE | 2020-01-23 09:25 | NUR ---
CASE MANAGEMENT:REVIEW 01/23/20 SI: COVID PNEUMONIA 97.0 57 18 123/66 97% ON 15L NON REBREATHER NO LABS TODAY IS: IV REMDESIVIR Q24 (DAY #4) DECADRON PO Q24 IV ROCEPHIN Q24 LOVENOX SQ Q24 IV VENOFER QHS IVF@50/HR : TRANSFERRED FROM STEP DOWN UNIT TO TELEMETRY UNIT DCP: PATIENT IS FROM HOME PLAN: ISOLATION
[2020-01-23] MEDS: Remdesivir 100mg 100 MG in NS 230 ML IV SCH (10:39)
[2020-01-23] MEDS: guaiFENesin w/Codeine 5ml Liq ud ORAL PRN ×2 (10:39→21:04)
--- NOTE | 2020-01-23 10:40 | Infectious Diseases Prog Note ---
Assessment/Plan Assessment/Plan antibiotics : remdesivir 6..20 - A 1. Covid 19 pneumonia on 15 liters, O2 98 percent saturation 2. leucocytosis increased, likely secondary to steroids 3. anemia P 1. continue remdesivir EUA day 4 2. continue dexamethasone day 5 3. continue isolation 4. will follow up cultures Subjective ROS Limited/Unobtainable: Yes Constitutional: Denies: fever, chills Respiratory: Reports: shortness of breath, dry cough - decreased Gastrointestinal/Abdominal: Denies: nausea, vomiting, diarrhea Musculoskeletal: Denies: pain Allergies: Coded Allergies: No Known Allergies (Unverified , 10/19/15) Objective Last 24 Hour Vital Signs Date Time Temp Pulse Resp B/P (MAP) Pulse Ox O2 Delivery O2 Flow Rate FiO2 01/23/20 09:00 Non-Rebreather 15.0 01/23/20 08:10 95 Non-Rebreather 15.0 100 01/23/20 08:00 101 01/23/20 08:00 97.5 101 20 119/75 (90) 97 01/23/20 04:00 47 01/23/20 04:00 97.0 57 18 123/66 (85) 97 01/23/20 00:00 64 01/23/20 00:00 97.2 59 17 125/64 (84) 96 01/22/20 21:00 Non-Rebreather 15.0 01/22/20 20:00 64 01/22/20 20:00 96.1 56 18 121/67 (85) 94 01/22/20 19:40 97 Non-Rebreather 15.0 100 01/22/20 18:15 95.2 59 20 103/49 (67) 94 01/22/20 16:00 Non-Rebreather 15.0 01/22/20 16:00 58 01/22/20 16:00 98.2 59 20 118/71 (87) 96 01/22/20 12:00 60 01/22/20 12:00 Non-Rebreather 15.0 01/22/20 12:00 98.0 61 20 120/70 (87) 98 Height (Feet): 5 Height (Inches): 1.00 Weight (Pounds): 156 Laboratory Tests Test 01/23/20 08:50 Stool Occult Blood Pending Current Medications Medications (Trade) Dose Ordered Sig/Bhargav Route PRN Reason Start Time Stop Time Status Last Admin Dose Admin Acetaminophen (Tylenol) 650 mg Q6H PRN ORAL Temp >100.5 01/22/20 19:00 02/17/20 18:59 01/23/20 02:07 Acetaminophen (Tylenol) 650 mg Q6H PRN ORAL Mild Pain (Pain Scale 1-3) 01/22/20 19:00 02/21/20 18:59 Albuterol/ Ipratropium (Albuterol/ Ipratropium) 3 ml Q6H PRN HHN Shortness of Breath 01/22/20 19:00 01/23/20 18:59 Ceftriaxone Sodium 2 gm/ Dextrose 55 ml @ 110 mls/hr Q24H IVPB 01/23/20 16:00 01/28/20 15:59 Dexamethasone (Decadron) 6 mg Q24H ORAL 01/23/20 11:00 01/28/20 12:00 Dextrose/Sodium Chloride 1,000 ml @ 50 mls/hr Q20H IV 01/22/20 19:00 02/21/20 18:59 Enoxaparin Sodium (Lovenox) 100 mg Q24H SUBQ 01/22/20 23:00 04/17/20 22:59 01/22/20 23:20 Guaifenesin/ Codeine Phosphate (Robitussin with codeine) 5 ml Q6H PRN ORAL For Cough 01/22/20 19:00 02/17/20 18:59 01/22/20 23:19 Iron Sucrose 100 mg/Sodium Chloride 60 ml @ 240 mls/hr BEDTIME IV 01/22/20 21:00 01/25/20 21:14 01/22/20 21:15 Ondansetron HCl (Zofran) 4 mg Q6H PRN IVP Nausea & Vomiting 01/22/20 19:00 02/17/20 18:59 Polyethylene Glycol (Miralax) 17 gm DAILYPRN PRN ORAL Constipation 01/22/20 19:00 02/21/20 18:59 Remdesivir 100 mg/ Sodium Chloride 250 ml @ 250 mls/hr Q24H IV 01/23/20 10:30 01/24/20 11:29 Pati Fonseca MD Jan 23, 2020 10:40
--- NOTE | 2020-01-23 11:01 | Pulmonology Progress Note ---
Subjective ROS Limited/Unobtainable: Yes Interval Events: Remains on NRBM Constitutional: Denies: fever, chills HEENT: Repors: no symptoms Respiratory: Reports: no symptoms Cardiovascular: Reports: no symptoms Gastrointestinal/Abdominal: Denies: nausea, vomiting, diarrhea Genitourinary: Reports: no symptoms Musculoskeletal: Denies: pain Allergies: Coded Allergies: No Known Allergies (Unverified , 10/19/15) All Systems: reviewed and negative except above Objective Last 24 Hour Vital Signs Date Time Temp Pulse Resp B/P (MAP) Pulse Ox O2 Delivery O2 Flow Rate FiO2 01/23/20 09:00 Non-Rebreather 15.0 01/23/20 08:10 95 Non-Rebreather 15.0 100 01/23/20 08:00 101 01/23/20 08:00 97.5 101 20 119/75 (90) 97 01/23/20 04:00 47 01/23/20 04:00 97.0 57 18 123/66 (85) 97 01/23/20 00:00 64 01/23/20 00:00 97.2 59 17 125/64 (84) 96 01/22/20 21:00 Non-Rebreather 15.0 01/22/20 20:00 64 01/22/20 20:00 96.1 56 18 121/67 (85) 94 01/22/20 19:40 97 Non-Rebreather 15.0 100 01/22/20 18:15 95.2 59 20 103/49 (67) 94 01/22/20 16:00 Non-Rebreather 15.0 01/22/20 16:00 58 01/22/20 16:00 98.2 59 20 118/71 (87) 96 01/22/20 12:00 60 01/22/20 12:00 Non-Rebreather 15.0 01/22/20 12:00 98.0 61 20 120/70 (87) 98 Intake and Output 01/22/20 01/23/20 19:00 07:00 Intake Total 1105 ml 400 ml Balance 1105 ml 400 ml Intake Oral 500 ml 400 ml IV Total 605 ml # Voids 3 2 General Appearance: no acute distress HEENT: normocephalic Respiratory: chest wall non-tender, lungs clear Cardiovascular: normal peripheral pulses Abdomen: normal bowel sounds, soft, non tender Extremities: no cyanosis, no clubbing, no edema Laboratory Tests 01/23/20 08:50: Stool Occult Blood [Pending] Current Medications Medications (Trade) Dose Ordered Sig/Bhargav Route PRN Reason Start Time Stop Time Status Last Admin Dose Admin Acetaminophen (Tylenol) 650 mg Q6H PRN ORAL Temp >100.5 01/22/20 19:00 02/17/20 18:59 01/23/20 02:07 Acetaminophen (Tylenol) 650 mg Q6H PRN ORAL Mild Pain (Pain Scale 1-3) 01/22/20 19:00 02/21/20 18:59 Albuterol/ Ipratropium (Albuterol/ Ipratropium) 3 ml Q6H PRN HHN Shortness of Breath 01/22/20 19:00 01/23/20 18:59 Ceftriaxone Sodium 2 gm/ Dextrose 55 ml @ 110 mls/hr Q24H IVPB 01/23/20 16:00 01/28/20 15:59 Dexamethasone (Decadron) 6 mg Q24H ORAL 01/23/20 11:00 01/28/20 12:00 01/23/20 10:39 Dextrose/Sodium Chloride 1,000 ml @ 50 mls/hr Q20H IV 01/22/20 19:00 02/21/20 18:59 Enoxaparin Sodium (Lovenox) 100 mg Q24H SUBQ 01/22/20 23:00 04/17/20 22:59 01/22/20 23:20 Guaifenesin/ Codeine Phosphate (Robitussin with codeine) 5 ml Q6H PRN ORAL For Cough 01/22/20 19:00 02/17/20 18:59 01/23/20 10:39 Iron Sucrose 100 mg/Sodium Chloride 60 ml @ 240 mls/hr BEDTIME IV 01/22/20 21:00 01/25/20 21:14 01/22/20 21:15 Ondansetron HCl (Zofran) 4 mg Q6H PRN IVP Nausea & Vomiting 01/22/20 19:00 02/17/20 18:59 Polyethylene Glycol (Miralax) 17 gm DAILYPRN PRN ORAL Constipation 01/22/20 19:00 02/21/20 18:59 Remdesivir 100 mg/ Sodium Chloride 250 ml @ 250 mls/hr Q24H IV 01/23/20 10:30 01/24/20 11:29 01/23/20 10:39 Assessment/Plan Assessment/Plan IMPRESSION: 1. Acvute hypoxemic respiratory failutre 2. COVID-19 pneumonia. DISCUSSION: Continue IV fluids and antibiotics. Seen by ID. Continue oxygen and pulmonary hygiene. I will follow carefully. S/p remdesivir and dexamethasone Jerald Bess Omar Syed MD Jan 23, 2020 11:01
--- NOTE | 2020-01-23 11:11 | Hematology/Onc Progress Note ---
Assessment/Plan Assessment/Plan # Anemia of iron deficiency, unspecified rule out gi bleed --> obtain anemia panel, has been reviewed --> have begun on iv iron and continue x 5 doses --> review if occult blood is + (review this to make sure +). Can consider gi eval --> hgb goal is >7, transfuse as needed --> trend CBC daily to make sure no major acute drop --> no evidence of hemolysis noted --> hgb trend: 8.5 --> 01/22 stool ob pending # Leukocytosis/elevated white blood cell count, unspecified likely related to underlying stress reaction, smoking v covid19 infection --> have reviewed peripheral smear and bandemia/neutrophilia noted --> continue antibiotics if they have been started by ID team: cftx --> monitor for resolution --> started on remdesivir --> wbc trend 19-->9-->14.7 # Elecated ddimer --> will recheck --> likely covid related --> is on lovenox for now --> 01/20 jaden duplex negative # Hypokalemia, likely depletional --> per renal, replete # Suspected COVID-19 infection # Elevated inflammatory markers # Dvt ppx with lovenox Appreciate consultaiton and agnes Rn Subjective Allergies: Coded Allergies: No Known Allergies (Unverified , 10/19/15) Subjective 01/20 no events, has been started on iv iron, will recheck ddimer 01/21 jaden duplex negative for dvt, nrb o2, hgb 8.5, no distress 01/22 dry cough+, remdesivir, iv iron, nrb, stool ob pending Objective Objective Current Medications Medications (Trade) Dose Ordered Sig/Bhargav Route PRN Reason Start Time Stop Time Status Last Admin Dose Admin Acetaminophen (Tylenol) 650 mg Q6H PRN ORAL Temp >100.5 01/22/20 19:00 02/17/20 18:59 01/23/20 02:07 Acetaminophen (Tylenol) 650 mg Q6H PRN ORAL Mild Pain (Pain Scale 1-3) 01/22/20 19:00 02/21/20 18:59 Albuterol/ Ipratropium (Albuterol/ Ipratropium) 3 ml Q6H PRN HHN Shortness of Breath 01/22/20 19:00 01/23/20 18:59 Ceftriaxone Sodium 2 gm/ Dextrose 55 ml @ 110 mls/hr Q24H IVPB 01/23/20 16:00 01/28/20 15:59 Dexamethasone (Decadron) 6 mg Q24H ORAL 01/23/20 11:00 01/28/20 12:00 01/23/20 10:39 Dextrose/Sodium Chloride 1,000 ml @ 50 mls/hr Q20H IV 01/22/20 19:00 02/21/20 18:59 Enoxaparin Sodium (Lovenox) 70 mg EVERY 12 HOURS SUBQ 01/23/20 21:00 04/22/20 20:59 Guaifenesin/ Codeine Phosphate (Robitussin with codeine) 5 ml Q6H PRN ORAL For Cough 01/22/20 19:00 02/17/20 18:59 01/23/20 10:39 Iron Sucrose 100 mg/Sodium Chloride 60 ml @ 240 mls/hr BEDTIME IV 01/22/20 21:00 01/25/20 21:14 01/22/20 21:15 Ondansetron HCl (Zofran) 4 mg Q6H PRN IVP Nausea & Vomiting 01/22/20 19:00 02/17/20 18:59 Polyethylene Glycol (Miralax) 17 gm DAILYPRN PRN ORAL Constipation 01/22/20 19:00 02/21/20 18:59 Remdesivir 100 mg/ Sodium Chloride 250 ml @ 250 mls/hr Q24H IV 01/23/20 10:30 01/24/20 11:29 01/23/20 10:39 Last 24 Hour Vital Signs Date Time Temp Pulse Resp B/P (MAP) Pulse Ox O2 Delivery O2 Flow Rate FiO2 01/23/20 09:00 Non-Rebreather 15.0 01/23/20 08:10 95 Non-Rebreather 15.0 100 01/23/20 08:00 101 01/23/20 08:00 97.5 101 20 119/75 (90) 97 01/23/20 04:00 47 01/23/20 04:00 97.0 57 18 123/66 (85) 97 01/23/20 00:00 64 01/23/20 00:00 97.2 59 17 125/64 (84) 96 01/22/20 21:00 Non-Rebreather 15.0 01/22/20 20:00 64 01/22/20 20:00 96.1 56 18 121/67 (85) 94 01/22/20 19:40 97 Non-Rebreather 15.0 100 01/22/20 18:15 95.2 59 20 103/49 (67) 94 01/22/20 16:00 Non-Rebreather 15.0 01/22/20 16:00 58 01/22/20 16:00 98.2 59 20 118/71 (87) 96 01/22/20 12:00 60 01/22/20 12:00 Non-Rebreather 15.0 01/22/20 12:00 98.0 61 20 120/70 (87) 98 01/22/20 08:00 97.3 59 20 122/53 (76) 92 01/22/20 08:00 63 01/22/20 08:00 Non-Rebreather 15.0 01/22/20 07:00 92 Non-Rebreather 15.0 100 01/22/20 04:00 92 01/22/20 04:00 97.9 68 20 122/65 (84) 97 01/22/20 04:00 Non-Rebreather 15.0 01/22/20 00:00 Non-Rebreather 15.0 01/22/20 00:00 97.8 78 20 113/68 (83) 96 01/22/20 00:00 64 01/21/20 21:00 Non-Rebreather 15.0 01/21/20 20:00 Non-Rebreather 15.0 01/21/20 20:00 65 01/21/20 20:00 95 Non-Rebreather 15.0 100 01/21/20 20:00 97.7 78 20 118/73 (88) 96 01/21/20 16:18 57 01/21/20 16:00 97.6 78 22 128/71 (90) 94 01/21/20 16:00 Non-Rebreather 15.0 01/21/20 15:25 Non-Rebreather 15.0 01/21/20 12:00 96.3 60 22 112/68 (83) 97 Intake and Output 01/22/20 01/23/20 19:00 07:00 Intake Total 1105 ml 400 ml Balance 1105 ml 400 ml Intake Oral 500 ml 400 ml IV Total 605 ml # Voids 3 2 Labs Test 01/21/20 09:23 01/21/20 21:29 01/22/20 03:26 01/23/20 08:50 Arterial Blood pH 7.421 (7.350-7.450) Arterial Blood Partial Pressure CO2 32.4 mmHg (35.0-45.0) Arterial Blood Partial Pressure O2 62.6 mmHg (75.0-100.0) Arterial Blood HCO3 20.6 mmol/L (22.0-26.0) Arterial Blood Oxygen Saturation 91.4 % (95-100) Arterial Blood Base Excess -3.3 (-2-2) Miguel Test Positive D-Dimer 4.80 mg/L FEU (0.00-0.49) White Blood Count 14.7 K/UL (4.8-10.8) Red Blood Count 4.57 M/UL (4.20-5.40) Hemoglobin 8.5 G/DL (12.0-16.0) Hematocrit 28.9 % (37.0-47.0) Mean Corpuscular Volume 63 FL (80-99) Mean Corpuscular Hemoglobin 18.6 PG (27.0-31.0) Mean Corpuscular Hemoglobin Concent 29.4 G/DL (32.0-36.0) Red Cell Distribution Width 22.2 % (11.6-14.8) Platelet Count 390 K/UL (150-450) Mean Platelet Volume 8.3 FL (6.5-10.1) Neutrophils (%) (Auto) % (45.0-75.0) Lymphocytes (%) (Auto) % (20.0-45.0) Monocytes (%) (Auto) % (1.0-10.0) Eosinophils (%) (Auto) % (0.0-3.0) Basophils (%) (Auto) % (0.0-2.0) Differential Total Cells Counted 100 Neutrophils % (Manual) 88 % (45-75) Lymphocytes % (Manual) 9 % (20-45) Monocytes % (Manual) 3 % (1-10) Eosinophils % (Manual) 0 % (0-3) Basophils % (Manual) 0 % (0-2) Band Neutrophils 0 % (0-8) Platelet Estimate Adequate Platelet Morphology Normal Polychromasia 1+ Hypochromasia 1+ Anisocytosis 3+ Microcytosis 2+ Sodium Level 140 MMOL/L (136-145) Potassium Level 4.0 MMOL/L (3.5-5.1) Chloride Level 106 MMOL/L (98-107) Carbon Dioxide Level 24 MMOL/L (21-32) Anion Gap 10 mmol/L (5-15) Blood Urea Nitrogen 15 mg/dL (7-18) Creatinine 0.6 MG/DL (0.55-1.30) Estimat Glomerular Filtration Rate > 60 mL/min (>60) Glucose Level 125 MG/DL (74-106) Uric Acid 1.9 MG/DL (2.6-7.2) Calcium Level 7.5 MG/DL (8.5-10.1) Phosphorus Level 3.9 MG/DL (2.5-4.9) Magnesium Level 2.0 MG/DL (1.8-2.4) Total Bilirubin 0.2 MG/DL (0.2-1.0) Aspartate Amino Transf (AST/SGOT) 31 U/L (15-37) Alanine Aminotransferase (ALT/SGPT) 17 U/L (12-78) Alkaline Phosphatase 74 U/L (46-116) C-Reactive Protein, Quantitative 18.3 mg/dL (0.00-0.90) Total Protein 6.6 G/DL (6.4-8.2) Albumin 2.3 G/DL (3.4-5.0) Globulin 4.3 g/dL Albumin/Globulin Ratio 0.5 (1.0-2.7) Height (Feet): 5 Height (Inches): 1.00 Weight (Pounds): 156 Objective Physical Exam: Vitals: reviewed General: NAD HEENT: nc, at Neck: supple Chest: clear breath sounds bilaterally, nrb++ Cardiovascular: RRR, no s3, s4 Abdomen: soft, nontender, nd Extremities: no cce, normal range of motion Neuro: alert and oriented Eddie Pascual MD Jan 23, 2020 11:11
--- NOTE | 2020-01-23 11:19 | Nephrology Progress Note ---
Assessment/Plan Problem List: (1) Hypokalemia (2) Anemia Assessment: Iron deficiency (3) Suspected COVID-19 virus infection Assessment Hypokalemia, likely depletional Severe anemia, low iron Suspected COVID-19 infection Elevated inflammatory markers Plan Lab reviewed. Stable from renal standpoint to view Will monitor renal parameters and electrolytes. Continue per consultants. On Remdesivir and Decadron Change hypotonic solution to isotonic solution Potassium supplements IV iron Patient also transfused Continue per consultants Per orders Subjective ROS Limited/Unobtainable: No Constitutional: Reports: malaise Objective Objective Last 24 Hour Vital Signs Date Time Temp Pulse Resp B/P (MAP) Pulse Ox O2 Delivery O2 Flow Rate FiO2 01/23/20 09:00 Non-Rebreather 15.0 01/23/20 08:10 95 Non-Rebreather 15.0 100 01/23/20 08:00 101 01/23/20 08:00 97.5 101 20 119/75 (90) 97 01/23/20 04:00 47 01/23/20 04:00 97.0 57 18 123/66 (85) 97 01/23/20 00:00 64 01/23/20 00:00 97.2 59 17 125/64 (84) 96 01/22/20 21:00 Non-Rebreather 15.0 01/22/20 20:00 64 01/22/20 20:00 96.1 56 18 121/67 (85) 94 01/22/20 19:40 97 Non-Rebreather 15.0 100 01/22/20 18:15 95.2 59 20 103/49 (67) 94 01/22/20 16:00 Non-Rebreather 15.0 01/22/20 16:00 58 01/22/20 16:00 98.2 59 20 118/71 (87) 96 01/22/20 12:00 60 01/22/20 12:00 Non-Rebreather 15.0 01/22/20 12:00 98.0 61 20 120/70 (87) 98 Intake and Output 01/22/20 01/23/20 19:00 07:00 Intake Total 1105 ml 400 ml Balance 1105 ml 400 ml Intake Oral 500 ml 400 ml IV Total 605 ml # Voids 3 2 Laboratory Tests 01/23/20 08:50: Stool Occult Blood [Pending] Height (Feet): 5 Height (Inches): 1.00 Weight (Pounds): 156 Cardiovascular: other - Variable Respiratory/Chest: decreased breath sounds Abdomen: soft Objective No change Kristian Barry MD Jan 23, 2020 11:19
[2020-01-23 12:00] VITALS: BP 130/75
[2020-01-23] MEDS ORDERED: Albuterol 90mcg Inhaler 8gm INH PRN (13:30)
[2020-01-23] MEDS ORDERED: Tubing IV Secondary IV ONE (13:42)
[2020-01-23] MEDS ORDERED: D5NS 1000ml IV ONE (13:42)
--- NOTE | 2020-01-23 14:03 | NUR ---
*-* INSURANCE *-* UPDATED CLINICALS AND REVIEWS HAVE BEEN FAXED TO: [employer]ENDRIC[facility] P:[phone] F:[phone]
[2020-01-23] MEDS: cefTRIAXone 2 GM in D5W 55 ML IVPB SCH (15:59)
[2020-01-23] MEDS: D5NS 1,000 ML IV SCH (15:59)
[2020-01-23 16:00] VITALS: BP 129/78
--- NOTE | 2020-01-23 19:17 | NUR ---
HAND-OFF: Report given to Lisa RN.Patient is in stable condition.
--- NOTE | 2020-01-23 19:20 | NUR ---
NURSE NOTES: Received pt and report from PRAVEEN Ronquillo. Observed pt resting in bed with both eyes open and watching television. Pt is A/Ox4. classroom monitor is in placed; pt is NSR. IV site intact, asymptomatic, and patent; running D5 NS @ 50cc/hr. Pt is on a non-rebreather mask at 15L; sating at 97%. Bed is in the lowest position and locked. Call light and bedside table is within reach. No signs/symptoms of acute distress noted at this time. Will continue plan of care.
[2020-01-23 20:00] VITALS: BP 127/69
--- NOTE | 2020-01-23 20:30 | General Progress Note ---
Assessment/Plan Problem List: (1) Anemia ICD Codes: D64.9 - Anemia, unspecified SNOMED: 024854986 Qualifiers: Qualified Codes: D64.9 - Anemia, unspecified (2) Pneumonia ICD Codes: J18.9 - Pneumonia, unspecified organism SNOMED: 461935081 Qualifiers: Qualified Codes: J18.9 - Pneumonia, unspecified organism (3) Elevated C-reactive protein ICD Codes: R79.82 - Elevated C-reactive protein (CRP) SNOMED: 474739303947520 (4) Elevated d-dimer ICD Codes: R79.89 - Other specified abnormal findings of blood chemistry SNOMED: 040428275 (5) Suspected COVID-19 virus infection ICD Codes: Z20.828 - Contact with and (suspected) exposure to other viral communicable diseases SNOMED: 799942712 (6) Malnutrition ICD Codes: E46 - Unspecified protein-calorie malnutrition SNOMED: 90910525 Status: progressing, unchanged Assessment/Plan: positive covid pna pna resp insuff supportive rx reviewed chart and labs Subjective ROS Limited/Unobtainable: Yes Allergies: Coded Allergies: No Known Allergies (Unverified , 10/19/15) Objective Last 24 Hour Vital Signs Date Time Temp Pulse Resp B/P (MAP) Pulse Ox O2 Delivery O2 Flow Rate FiO2 01/23/20 20:04 94 Non-Rebreather 15.0 100 01/23/20 16:00 97.6 62 20 129/78 (95) 96 01/23/20 16:00 60 01/23/20 12:00 97.8 66 20 130/75 (93) 97 01/23/20 12:00 66 01/23/20 09:00 Non-Rebreather 15.0 01/23/20 08:10 95 Non-Rebreather 15.0 100 01/23/20 08:00 101 01/23/20 08:00 97.5 101 20 119/75 (90) 97 01/23/20 04:00 47 01/23/20 04:00 97.0 57 18 123/66 (85) 97 01/23/20 00:00 64 01/23/20 00:00 97.2 59 17 125/64 (84) 96 01/22/20 21:00 Non-Rebreather 15.0 Intake and Output 01/22/20 01/23/20 19:00 07:00 Intake Total 1105 ml 400 ml Balance 1105 ml 400 ml Intake Oral 500 ml 400 ml IV Total 605 ml # Voids 3 2 Laboratory Tests 01/23/20 08:50: Stool Occult Blood [Pending] Height (Feet): 5 Height (Inches): 1.00 Weight (Pounds): 156 Chintan Mills MD Jan 23, 2020 20:30
[2020-01-23] MEDS: Iron Sucrose 100 MG in NS 55 ML IV SCH (21:04)
[2020-01-23] MEDS: Enoxaparin 80mg Inj SUBQ SCH (21:07)
[2020-01-24] VITALS: BP 130/66
[2020-01-24 04:00] VITALS: BP 130/72
--- NOTE | 2020-01-24 07:29 | NUR ---
NURSE NOTES: Received report from Lisa RN in bed. Denies any pain at this time. No s/s of respiratory discomfort or distress noted. Patient is still having non-productive cough. IV on left hand is intact and patent, D5 NS running at 50cc/hr. Bed is in lowest position with bedside rails up x2, brakes engaged for safety. Call light is within reach. Will continue with the plan of care.
--- NOTE | 2020-01-24 07:41 | NUR ---
HAND-OFF: Report given to PRAVEEN Ronquillo. Plan of care endorsed.
[2020-01-24 08:00] VITALS: BP 125/53
--- NOTE | 2020-01-24 09:00 | NUR ---
CASE MANAGEMENT:REVIEW 01/24/20 SI: COVID PNEUMONIA 97.2 51 19 96% ON 15L NON REBREATHER NO LABS TODAY IS: IV REMDESIVIR Q24 (DAY #5) DECADRON PO Q24 IV ROCEPHIN Q24 LOVENOX SQ Q24 IV VENOFER QHS IVF@50/HR : TRANSFERRED FROM STEP DOWN UNIT TO TELEMETRY UNIT DCP: PATIENT IS FROM HOME PLAN: ISOLATION COMPLETE 5 DAY COURSE OF REMDESIVIR
--- NOTE | 2020-01-24 09:56 | Pulmonology Progress Note ---
Subjective ROS Limited/Unobtainable: Yes Interval Events: Remains on NRBM Constitutional: Denies: fever, chills HEENT: Repors: no symptoms Respiratory: Reports: no symptoms Cardiovascular: Reports: no symptoms Gastrointestinal/Abdominal: Denies: nausea, vomiting, diarrhea Genitourinary: Reports: no symptoms Musculoskeletal: Denies: pain Allergies: Coded Allergies: No Known Allergies (Unverified , 10/19/15) All Systems: reviewed and negative except above Objective Last 24 Hour Vital Signs Date Time Temp Pulse Resp B/P (MAP) Pulse Ox O2 Delivery O2 Flow Rate FiO2 01/24/20 09:00 Non-Rebreather 15.0 01/24/20 08:27 96 Non-Rebreather 15.0 100 01/24/20 08:00 55 01/24/20 08:00 96.6 55 20 125/53 (77) 96 01/24/20 04:00 51 01/24/20 04:00 97.2 51 19 130/72 (91) 97 01/24/20 00:00 96.6 52 19 130/66 (87) 97 01/24/20 00:00 47 01/23/20 21:00 Non-Rebreather 15.0 01/23/20 20:04 94 Non-Rebreather 15.0 100 01/23/20 20:00 96.3 59 20 127/69 (88) 97 01/23/20 20:00 68 01/23/20 16:00 97.6 62 20 129/78 (95) 96 01/23/20 16:00 60 01/23/20 12:00 97.8 66 20 130/75 (93) 97 01/23/20 12:00 66 Intake and Output 01/23/20 01/24/20 19:00 07:00 Intake Total 236 ml 600 ml Balance 236 ml 600 ml Intake Oral 236 ml 600 ml # Voids 3 3 General Appearance: no acute distress HEENT: normocephalic Respiratory: chest wall non-tender, lungs clear Cardiovascular: normal peripheral pulses Abdomen: normal bowel sounds, soft, non tender Extremities: no cyanosis, no clubbing, no edema Current Medications Medications (Trade) Dose Ordered Sig/Bhargav Route PRN Reason Start Time Stop Time Status Last Admin Dose Admin Acetaminophen (Tylenol) 650 mg Q6H PRN ORAL Temp >100.5 01/22/20 19:00 02/17/20 18:59 01/23/20 02:07 Acetaminophen (Tylenol) 650 mg Q6H PRN ORAL Mild Pain (Pain Scale 1-3) 01/22/20 19:00 02/21/20 18:59 Albuterol Sulfate (Proventil MDI) 2 puff Q4H PRN INH Shortness of Breath 01/23/20 13:30 04/22/20 13:29 Ceftriaxone Sodium 2 gm/ Dextrose 55 ml @ 110 mls/hr Q24H IVPB 01/23/20 16:00 01/28/20 15:59 01/23/20 15:59 Dexamethasone (Decadron) 6 mg Q24H ORAL 01/23/20 11:00 01/28/20 12:00 01/23/20 10:39 Dextrose/Sodium Chloride 1,000 ml @ 50 mls/hr Q20H IV 01/22/20 19:00 02/21/20 18:59 01/23/20 15:59 Enoxaparin Sodium (Lovenox) 70 mg EVERY 12 HOURS SUBQ 01/23/20 21:00 04/22/20 20:59 01/23/20 21:07 Guaifenesin/ Codeine Phosphate (Robitussin with codeine) 5 ml Q6H PRN ORAL For Cough 01/22/20 19:00 02/17/20 18:59 01/23/20 21:04 Iron Sucrose 100 mg/Sodium Chloride 60 ml @ 240 mls/hr BEDTIME IV 01/22/20 21:00 01/25/20 21:14 01/23/20 21:04 Ondansetron HCl (Zofran) 4 mg Q6H PRN IVP Nausea & Vomiting 01/22/20 19:00 02/17/20 18:59 Polyethylene Glycol (Miralax) 17 gm DAILYPRN PRN ORAL Constipation 01/22/20 19:00 02/21/20 18:59 Remdesivir 100 mg/ Sodium Chloride 250 ml @ 250 mls/hr Q24H IV 01/23/20 10:30 01/24/20 11:29 01/23/20 10:39 Assessment/Plan Assessment/Plan IMPRESSION: 1. Acvute hypoxemic respiratory failutre 2. COVID-19 pneumonia. DISCUSSION: Continue IV fluids and antibiotics. Seen by ID. Continue oxygen and pulmonary hygiene. I will follow carefully. S/p remdesivir and dexamethasone Jerald Bess Omar Syed MD Jan 24, 2020 09:56
--- NOTE | 2020-01-24 10:01 | Hematology/Onc Progress Note ---
Assessment/Plan Assessment/Plan # Anemia of iron deficiency, unspecified rule out gi bleed --> obtain anemia panel, has been reviewed --> have begun on iv iron and continue x 5 doses --> review if occult blood is + (review this to make sure +). Can consider gi eval --> hgb goal is >7, transfuse as needed --> trend CBC daily to make sure no major acute drop --> no evidence of hemolysis noted --> hgb trend: 8.5 --> 01/22 stool ob pending # Leukocytosis/elevated white blood cell count, unspecified likely related to underlying stress reaction, smoking v covid19 infection --> have reviewed peripheral smear and bandemia/neutrophilia noted --> continue antibiotics if they have been started by ID team: cftx --> monitor for resolution --> started on remdesivir --> wbc trend 19-->9-->14.7 # Elecated ddimer --> will recheck --> likely covid related --> is on lovenox for now --> 01/20 jaden duplex negative # Hypokalemia, likely depletional --> per renal, replete # Suspected COVID-19 infection # Elevated inflammatory markers # Dvt ppx with lovenox Appreciate consultaiton and agnes Rn Subjective Allergies: Coded Allergies: No Known Allergies (Unverified , 10/19/15) Subjective 01/20 no events, has been started on iv iron, will recheck ddimer 01/21 jaden duplex negative for dvt, nrb o2, hgb 8.5, no distress 01/22 dry cough+, remdesivir, iv iron, nrb, stool ob pending 01/23 no overnight events, afebrile, bp stable Objective Objective Current Medications Medications (Trade) Dose Ordered Sig/Bhargav Route PRN Reason Start Time Stop Time Status Last Admin Dose Admin Acetaminophen (Tylenol) 650 mg Q6H PRN ORAL Temp >100.5 01/22/20 19:00 02/17/20 18:59 01/23/20 02:07 Acetaminophen (Tylenol) 650 mg Q6H PRN ORAL Mild Pain (Pain Scale 1-3) 01/22/20 19:00 02/21/20 18:59 Albuterol Sulfate (Proventil MDI) 2 puff Q4H PRN INH Shortness of Breath 01/23/20 13:30 04/22/20 13:29 Ceftriaxone Sodium 2 gm/ Dextrose 55 ml @ 110 mls/hr Q24H IVPB 01/23/20 16:00 01/28/20 15:59 01/23/20 15:59 Dexamethasone (Decadron) 6 mg Q24H ORAL 01/23/20 11:00 01/28/20 12:00 01/23/20 10:39 Dextrose/Sodium Chloride 1,000 ml @ 50 mls/hr Q20H IV 01/22/20 19:00 02/21/20 18:59 01/23/20 15:59 Enoxaparin Sodium (Lovenox) 70 mg EVERY 12 HOURS SUBQ 01/23/20 21:00 04/22/20 20:59 01/23/20 21:07 Guaifenesin/ Codeine Phosphate (Robitussin with codeine) 5 ml Q6H PRN ORAL For Cough 01/22/20 19:00 02/17/20 18:59 01/23/20 21:04 Iron Sucrose 100 mg/Sodium Chloride 60 ml @ 240 mls/hr BEDTIME IV 01/22/20 21:00 01/25/20 21:14 01/23/20 21:04 Ondansetron HCl (Zofran) 4 mg Q6H PRN IVP Nausea & Vomiting 01/22/20 19:00 02/17/20 18:59 Polyethylene Glycol (Miralax) 17 gm DAILYPRN PRN ORAL Constipation 01/22/20 19:00 02/21/20 18:59 Remdesivir 100 mg/ Sodium Chloride 250 ml @ 250 mls/hr Q24H IV 01/23/20 10:30 01/24/20 11:29 01/23/20 10:39 Last 24 Hour Vital Signs Date Time Temp Pulse Resp B/P (MAP) Pulse Ox O2 Delivery O2 Flow Rate FiO2 01/24/20 09:00 Non-Rebreather 15.0 01/24/20 08:27 96 Non-Rebreather 15.0 100 01/24/20 08:00 55 01/24/20 08:00 96.6 55 20 125/53 (77) 96 01/24/20 04:00 51 01/24/20 04:00 97.2 51 19 130/72 (91) 97 01/24/20 00:00 96.6 52 19 130/66 (87) 97 01/24/20 00:00 47 01/23/20 21:00 Non-Rebreather 15.0 01/23/20 20:04 94 Non-Rebreather 15.0 100 01/23/20 20:00 96.3 59 20 127/69 (88) 97 01/23/20 20:00 68 01/23/20 16:00 97.6 62 20 129/78 (95) 96 01/23/20 16:00 60 01/23/20 12:00 97.8 66 20 130/75 (93) 97 01/23/20 12:00 66 01/23/20 09:00 Non-Rebreather 15.0 01/23/20 08:10 95 Non-Rebreather 15.0 100 01/23/20 08:00 101 01/23/20 08:00 97.5 101 20 119/75 (90) 97 01/23/20 04:00 47 01/23/20 04:00 97.0 57 18 123/66 (85) 97 01/23/20 00:00 64 01/23/20 00:00 97.2 59 17 125/64 (84) 96 01/22/20 21:00 Non-Rebreather 15.0 01/22/20 20:00 64 01/22/20 20:00 96.1 56 18 121/67 (85) 94 01/22/20 19:40 97 Non-Rebreather 15.0 100 01/22/20 18:15 95.2 59 20 103/49 (67) 94 01/22/20 16:00 Non-Rebreather 15.0 01/22/20 16:00 58 01/22/20 16:00 98.2 59 20 118/71 (87) 96 01/22/20 12:00 60 01/22/20 12:00 Non-Rebreather 15.0 01/22/20 12:00 98.0 61 20 120/70 (87) 98 Intake and Output 01/23/20 01/24/20 19:00 07:00 Intake Total 236 ml 600 ml Balance 236 ml 600 ml Intake Oral 236 ml 600 ml # Voids 3 3 Labs Test 01/21/20 21:29 01/22/20 03:26 01/23/20 08:50 D-Dimer 4.80 mg/L FEU (0.00-0.49) White Blood Count 14.7 K/UL (4.8-10.8) Red Blood Count 4.57 M/UL (4.20-5.40) Hemoglobin 8.5 G/DL (12.0-16.0) Hematocrit 28.9 % (37.0-47.0) Mean Corpuscular Volume 63 FL (80-99) Mean Corpuscular Hemoglobin 18.6 PG (27.0-31.0) Mean Corpuscular Hemoglobin Concent 29.4 G/DL (32.0-36.0) Red Cell Distribution Width 22.2 % (11.6-14.8) Platelet Count 390 K/UL (150-450) Mean Platelet Volume 8.3 FL (6.5-10.1) Neutrophils (%) (Auto) % (45.0-75.0) Lymphocytes (%) (Auto) % (20.0-45.0) Monocytes (%) (Auto) % (1.0-10.0) Eosinophils (%) (Auto) % (0.0-3.0) Basophils (%) (Auto) % (0.0-2.0) Differential Total Cells Counted 100 Neutrophils % (Manual) 88 % (45-75) Lymphocytes % (Manual) 9 % (20-45) Monocytes % (Manual) 3 % (1-10) Eosinophils % (Manual) 0 % (0-3) Basophils % (Manual) 0 % (0-2) Band Neutrophils 0 % (0-8) Platelet Estimate Adequate Platelet Morphology Normal Polychromasia 1+ Hypochromasia 1+ Anisocytosis 3+ Microcytosis 2+ Sodium Level 140 MMOL/L (136-145) Potassium Level 4.0 MMOL/L (3.5-5.1) Chloride Level 106 MMOL/L (98-107) Carbon Dioxide Level 24 MMOL/L (21-32) Anion Gap 10 mmol/L (5-15) Blood Urea Nitrogen 15 mg/dL (7-18) Creatinine 0.6 MG/DL (0.55-1.30) Estimat Glomerular Filtration Rate > 60 mL/min (>60) Glucose Level 125 MG/DL (74-106) Uric Acid 1.9 MG/DL (2.6-7.2) Calcium Level 7.5 MG/DL (8.5-10.1) Phosphorus Level 3.9 MG/DL (2.5-4.9) Magnesium Level 2.0 MG/DL (1.8-2.4) Total Bilirubin 0.2 MG/DL (0.2-1.0) Aspartate Amino Transf (AST/SGOT) 31 U/L (15-37) Alanine Aminotransferase (ALT/SGPT) 17 U/L (12-78) Alkaline Phosphatase 74 U/L (46-116) C-Reactive Protein, Quantitative 18.3 mg/dL (0.00-0.90) Total Protein 6.6 G/DL (6.4-8.2) Albumin 2.3 G/DL (3.4-5.0) Globulin 4.3 g/dL Albumin/Globulin Ratio 0.5 (1.0-2.7) Height (Feet): 5 Height (Inches): 1.00 Weight (Pounds): 155 Objective Physical Exam: Vitals: reviewed General: NAD HEENT: nc, at Neck: supple Chest: clear breath sounds bilaterally, nrb++ Cardiovascular: RRR, no s3, s4 Abdomen: soft, nontender, nd Extremities: no cce, normal range of motion Neuro: alert and oriented Eddie Pascual MD Jan 24, 2020 10:01
[2020-01-24] MEDS: D5NS 1,000 ML IV SCH (10:17)
[2020-01-24] MEDS: Enoxaparin 80mg Inj SUBQ SCH ×2 (10:19→20:14)
--- NOTE | 2020-01-24 10:35 | Infectious Diseases Prog Note ---
Assessment/Plan Assessment/Plan antibiotics : remdesivir 20 - ceftriaxone A 1. Covid 19 pneumonia on 15 liters, O2 97 percent saturation 2. leucocytosis increased, likely secondary to steroids 3. anemia P 1. d/c remdesivir EUA day 5 after todays dose 2. continue dexamethasone day 6 3. ceftriaxone started 4. continue isolation 5. will follow up cultures Subjective Constitutional: Denies: fever, chills Respiratory: Reports: shortness of breath - decreased, dry cough - decreased Gastrointestinal/Abdominal: Denies: nausea, vomiting, diarrhea Musculoskeletal: Denies: pain Allergies: Coded Allergies: No Known Allergies (Unverified , 10/19/15) Objective Last 24 Hour Vital Signs Date Time Temp Pulse Resp B/P (MAP) Pulse Ox O2 Delivery O2 Flow Rate FiO2 01/24/20 09:00 Non-Rebreather 15.0 01/24/20 08:27 96 Non-Rebreather 15.0 100 01/24/20 08:00 55 01/24/20 08:00 96.6 55 20 125/53 (77) 96 01/24/20 04:00 51 01/24/20 04:00 97.2 51 19 130/72 (91) 97 01/24/20 00:00 96.6 52 19 130/66 (87) 97 01/24/20 00:00 47 01/23/20 21:00 Non-Rebreather 15.0 01/23/20 20:04 94 Non-Rebreather 15.0 100 01/23/20 20:00 96.3 59 20 127/69 (88) 97 01/23/20 20:00 68 01/23/20 16:00 97.6 62 20 129/78 (95) 96 01/23/20 16:00 60 01/23/20 12:00 97.8 66 20 130/75 (93) 97 01/23/20 12:00 66 Height (Feet): 5 Height (Inches): 1.00 Weight (Pounds): 155 Current Medications Medications (Trade) Dose Ordered Sig/Bhargav Route PRN Reason Start Time Stop Time Status Last Admin Dose Admin Acetaminophen (Tylenol) 650 mg Q6H PRN ORAL Temp >100.5 01/22/20 19:00 02/17/20 18:59 01/23/20 02:07 Acetaminophen (Tylenol) 650 mg Q6H PRN ORAL Mild Pain (Pain Scale 1-3) 01/22/20 19:00 02/21/20 18:59 Albuterol Sulfate (Proventil MDI) 2 puff Q4H PRN INH Shortness of Breath 01/23/20 13:30 04/22/20 13:29 Ceftriaxone Sodium 2 gm/ Dextrose 55 ml @ 110 mls/hr Q24H IVPB 01/23/20 16:00 01/28/20 15:59 01/23/20 15:59 Dexamethasone (Decadron) 6 mg Q24H ORAL 01/23/20 11:00 01/28/20 12:00 01/24/20 10:16 Dextrose/Sodium Chloride 1,000 ml @ 50 mls/hr Q20H IV 01/22/20 19:00 02/21/20 18:59 01/24/20 10:17 Enoxaparin Sodium (Lovenox) 70 mg EVERY 12 HOURS SUBQ 01/23/20 21:00 04/22/20 20:59 01/24/20 10:19 Guaifenesin/ Codeine Phosphate (Robitussin with codeine) 5 ml Q6H PRN ORAL For Cough 01/22/20 19:00 02/17/20 18:59 01/23/20 21:04 Iron Sucrose 100 mg/Sodium Chloride 60 ml @ 240 mls/hr BEDTIME IV 01/22/20 21:00 01/25/20 21:14 01/23/20 21:04 Ondansetron HCl (Zofran) 4 mg Q6H PRN IVP Nausea & Vomiting 01/22/20 19:00 02/17/20 18:59 Polyethylene Glycol (Miralax) 17 gm DAILYPRN PRN ORAL Constipation 01/22/20 19:00 02/21/20 18:59 Remdesivir 100 mg/ Sodium Chloride 250 ml @ 250 mls/hr Q24H IV 01/23/20 10:30 01/24/20 11:29 01/23/20 10:39 Pati Fonseca MD Jan 24, 2020 10:35
[2020-01-24] MEDS: Remdesivir 100mg 100 MG in NS 230 ML IV SCH (10:45)
--- NOTE | 2020-01-24 11:58 | NUR ---
*-* INSURANCE *-* UPDATED CLINICALS AND REVIEWS HAVE BEEN FAXED TO: ILANA HENDRICKS P:[phone] F:[phone]
[2020-01-24 12:00] VITALS: BP 112/63
--- NOTE | 2020-01-24 13:46 | Nephrology Progress Note ---
Assessment/Plan Problem List: (1) Hypokalemia (2) Anemia Assessment: Iron deficiency (3) Suspected COVID-19 virus infection Assessment Hypokalemia, likely depletional Severe anemia, low iron Suspected COVID-19 infection Elevated inflammatory markers Plan Lab reviewed. Stable from renal standpoint to view Will monitor renal parameters and electrolytes. Continue per consultants. On Remdesivir and Decadron Change hypotonic solution to isotonic solution Potassium supplements IV iron Patient also transfused Continue per consultants Per orders Subjective ROS Limited/Unobtainable: No Constitutional: Reports: malaise Objective Objective Last 24 Hour Vital Signs Date Time Temp Pulse Resp B/P (MAP) Pulse Ox O2 Delivery O2 Flow Rate FiO2 01/24/20 12:00 53 01/24/20 12:00 97.0 53 20 112/63 (79) 97 01/24/20 09:00 Non-Rebreather 15.0 01/24/20 08:27 96 Non-Rebreather 15.0 100 01/24/20 08:00 55 01/24/20 08:00 96.6 55 20 125/53 (77) 96 01/24/20 04:00 51 01/24/20 04:00 97.2 51 19 130/72 (91) 97 01/24/20 00:00 96.6 52 19 130/66 (87) 97 01/24/20 00:00 47 01/23/20 21:00 Non-Rebreather 15.0 01/23/20 20:04 94 Non-Rebreather 15.0 100 01/23/20 20:00 96.3 59 20 127/69 (88) 97 01/23/20 20:00 68 01/23/20 16:00 97.6 62 20 129/78 (95) 96 01/23/20 16:00 60 Intake and Output 01/23/20 01/24/20 18:59 06:59 Intake Total 236 ml 600 ml Balance 236 ml 600 ml Intake Oral 236 ml 600 ml # Voids 3 3 Height (Feet): 5 Height (Inches): 1.00 Weight (Pounds): 155 General Appearance: no apparent distress Objective No change Kristian Barry MD Jan 24, 2020 13:46
[2020-01-24] MEDS: cefTRIAXone 2 GM in D5W 55 ML IVPB SCH (15:41)
[2020-01-24 16:00] VITALS: BP 120/60
--- NOTE | 2020-01-24 19:11 | NUR ---
HAND-OFF: Report given to Halley MORTON. Patient is in stable condition.
--- NOTE | 2020-01-24 19:26 | NUR ---
NURSE NOTES: RECEIVED REPORT FROM PRAVEEN CASTRO. AAOX4, VERBALLY RESPONSIVE AND ABLE TO MAKE NEEDS KNOWN. NO COMPLAINTS OF PAIN OR DISCOMFORT AT THIS TIME. BREATHING IS EVEN AND UNLABORED ON 15L VIA NRB, NO S/SX OF DISTRESS AT THIS TIME. IV SITE ON LEFT HAND PATENT, INTACT, ASYMPTOMATIC WITH D5 12NS RUNNING AT PRESCRIBED RATE. FALL PRECAUTIONS IN PLACE. CONTACT AND DROPLET ISOLATIONS IMPLEMENTED. CALL LIGHT WITHIN REACH. BEDSIDE COMMODE NEAR BED, PATIENT UNDERSTANDS SHE NEEDS TO CALL FOR ASSISTANCE PRIOR TO GETTING UP. BED LOCKED AND IN LOWEST POSITION WITH SIDERAILS UP X 2. WILL CONTINUE TO MONITOR FOR ANY CHANGES. Addendum: 01/24/20 at 1946 by Halley Savage RN FLUIDS RUNNING IS D5NS
[2020-01-24 20:00] VITALS: BP 112/43
[2020-01-24] MEDS: Iron Sucrose 100 MG in NS 55 ML IV SCH (20:12)
--- NOTE | 2020-01-24 20:45 | General Progress Note ---
Assessment/Plan Problem List: (1) Anemia ICD Codes: D64.9 - Anemia, unspecified SNOMED: 635309316 Qualifiers: Qualified Codes: D64.9 - Anemia, unspecified (2) Pneumonia ICD Codes: J18.9 - Pneumonia, unspecified organism SNOMED: 079970594 Qualifiers: Qualified Codes: J18.9 - Pneumonia, unspecified organism (3) Elevated C-reactive protein ICD Codes: R79.82 - Elevated C-reactive protein (CRP) SNOMED: 244004021669918 (4) Elevated d-dimer ICD Codes: R79.89 - Other specified abnormal findings of blood chemistry SNOMED: 009844722 (5) Suspected COVID-19 virus infection ICD Codes: Z20.828 - Contact with and (suspected) exposure to other viral communicable diseases SNOMED: 420960680 (6) Malnutrition ICD Codes: E46 - Unspecified protein-calorie malnutrition SNOMED: 22021321 Status: progressing, unchanged Assessment/Plan: positive covid pna pna persistent leukocytosis afebrile no sob Subjective ROS Limited/Unobtainable: Yes Allergies: Coded Allergies: No Known Allergies (Unverified , 10/19/15) Objective Last 24 Hour Vital Signs Date Time Temp Pulse Resp B/P (MAP) Pulse Ox O2 Delivery O2 Flow Rate FiO2 01/24/20 19:14 96 Non-Rebreather 15.0 100 01/24/20 16:00 59 01/24/20 16:00 97.5 59 20 120/60 (80) 96 01/24/20 12:00 53 01/24/20 12:00 97.0 53 20 112/63 (79) 97 01/24/20 09:00 Non-Rebreather 15.0 01/24/20 08:27 96 Non-Rebreather 15.0 100 01/24/20 08:00 55 01/24/20 08:00 96.6 55 20 125/53 (77) 96 01/24/20 04:00 51 01/24/20 04:00 97.2 51 19 130/72 (91) 97 01/24/20 00:00 96.6 52 19 130/66 (87) 97 01/24/20 00:00 47 01/23/20 21:00 Non-Rebreather 15.0 Intake and Output 01/23/20 01/24/20 19:00 07:00 Intake Total 236 ml 600 ml Balance 236 ml 600 ml Intake Oral 236 ml 600 ml # Voids 3 3 Height (Feet): 5 Height (Inches): 1.00 Weight (Pounds): 155 Chintan Mills MD Jan 24, 2020 20:45
--- NOTE | 2020-01-24 22:00 | NUR ---
NURSE NOTES: OXYGEN SATURATION ON 15L VIA NON-REBREATHER MASK IS 98%, RR 18.
[2020-01-25] VITALS (7 sets, daily range): BP systolic 114–140; BP diastolic 46–66
[2020-01-25] MEDS: guaiFENesin w/Codeine 5ml Liq ud ORAL PRN ×2 (00:23→21:11)
--- NOTE | 2020-01-25 00:45 | NUR ---
NURSE NOTES: PATIENT NOTED WITH NON-PRODUCTIVE COUGH. GIVEN GUAIFENESIN W/ CODEINE PRESCRIBED. PATIENT REQUESTED TO KEEP TOWELS AND GOWN IN BATHROOM FOR THE MORNING WHEN SHE PLANS TO SHOWER.
--- NOTE | 2020-01-25 03:42 | NUR ---
NURSE NOTES: PATIENT'S IV SITE ON LEFT HAND NOTED TO BE INFILTRATED, LEFT HAND TO FOREARM SWOLLEN. IV DISCONTINUED, LEFT UPPER EXTREMITY ELEVATED ON PILLOW. PER PATIENT, SHE THINKS SHE MAY HAVE "ACCIDENTALLY" REMOVED IT IN HER DREAM. IV SITE 22G ON RIGHT HAND ESTABLISHED, RE-CONNECTED TO PRESCRIBED FLUIDS; PATENT, INTACT, ASYMPTOMATIC. WILL CONTINUE TO MONITOR FOR ANY CHANGES.
[2020-01-25] MEDS: D5NS 1,000 ML IV SCH (06:32)
--- NOTE | 2020-01-25 07:22 | NUR ---
HAND-OFF: Report given to PRAVEEN RAMIREZ. PATIENT IN STABLE CONDITION. ENDORSED PLAN OF CARE- NEED TO COLLECT TWO MORE STOOL SAMPLES FOR OB STOOL.
--- NOTE | 2020-01-25 08:13 | NUR ---
NURSE NOTES: Received pt from PRAVEEN Rowley. Pt A/O x4. No s/s of acute respiratory and cardiac distress. On non rebreather mask @ 15L. SL on right hand 22 G infusing IVF. Bed in low position, side rails up x2 and call light within reach. Will continue to monitor.
--- NOTE | 2020-01-25 08:53 | Hematology/Onc Progress Note ---
Assessment/Plan Assessment/Plan # Anemia of iron deficiency, unspecified rule out gi bleed --> obtain anemia panel, has been reviewed --> have begun on iv iron and continue x 5 doses --> review if occult blood is + (review this to make sure +). Can consider gi eval --> hgb goal is >7, transfuse as needed --> trend CBC daily to make sure no major acute drop --> no evidence of hemolysis noted --> hgb trend: 8.5 --> 01/22 stool ob neg # Leukocytosis/elevated white blood cell count, unspecified likely related to underlying stress reaction, smoking v covid19 infection --> have reviewed peripheral smear and bandemia/neutrophilia noted --> continue antibiotics if they have been started by ID team: cftx --> monitor for resolution --> started on remdesivir --> wbc trend 19-->9-->14.7 # Elecated ddimer --> will recheck --> likely covid related --> is on lovenox for now --> 01/20 jaden duplex negative # Hypokalemia, likely depletional --> per renal, replete # Suspected COVID-19 infection # Elevated inflammatory markers # Dvt ppx with lovenox Appreciate consultaiton and agnes Rn Subjective Constitutional: Denies: no symptoms, chills, fever, malaise, weakness, other HEENT: Denies: no symptoms, eye pain, blurred vision, tearing, double vision, ear pain, ear discharge, nose pain, nose congestion, throat pain, throat swelling, mouth pain, mouth swelling, other Cardiovascular: Denies: no symptoms, chest pain, edema, irregular heart rate, lightheadedness, palpitations, syncope, other Respiratory: Denies: no symptoms, cough, shortness of breath, SOB with excertion, SOB at rest, sputum, wheezing, other Gastrointestinal/Abdominal: Denies: no symptoms, abdomen distended, abdominal pain, black stools, tarry stools, blood in stool, constipated, diarrhea, difficulty swallowing, nausea, poor appetite, poor fluid intake, rectal bleeding , vomiting, other Neurologic/Psychiatric: Denies: no symptoms, anxiety, depressed, emotional problems, headache, numbness, paresthesia, pre-existing deficit, seizure, tingling, tremors, weakness, other Endocrine: Denies: no symptoms, excessive sweating, flushing, intolerance to cold, intolerance to heat, increased hunger, increased thirst, increased urine, unexplained weight gain, unexplained weight loss, other Hematologic/Lymphatic: Denies: no symptoms, anemia, easy bleeding, easy bruising, adenopathy, other Allergies: Coded Allergies: No Known Allergies (Unverified , 10/19/15) Subjective 01/20 no events, has been started on iv iron, will recheck ddimer 01/21 jaden duplex negative for dvt, nrb o2, hgb 8.5, no distress 01/22 dry cough+, remdesivir, iv iron, nrb, stool ob pending 01/23 no overnight events, afebrile, bp stable 01/24 no bleeding, hgb is better, remains on iv iron, hgb 8.5 Objective Objective Current Medications Medications (Trade) Dose Ordered Sig/Bhargav Route PRN Reason Start Time Stop Time Status Last Admin Dose Admin Acetaminophen (Tylenol) 650 mg Q6H PRN ORAL Temp >100.5 01/22/20 19:00 02/17/20 18:59 01/23/20 02:07 Acetaminophen (Tylenol) 650 mg Q6H PRN ORAL Mild Pain (Pain Scale 1-3) 01/22/20 19:00 02/21/20 18:59 Albuterol Sulfate (Proventil MDI) 2 puff Q4H PRN INH Shortness of Breath 01/23/20 13:30 04/22/20 13:29 Ceftriaxone Sodium 2 gm/ Dextrose 55 ml @ 110 mls/hr Q24H IVPB 01/23/20 16:00 01/28/20 15:59 01/24/20 15:41 Dexamethasone (Decadron) 6 mg Q24H ORAL 01/23/20 11:00 01/28/20 12:00 01/24/20 10:16 Dextrose/Sodium Chloride 1,000 ml @ 50 mls/hr Q20H IV 01/22/20 19:00 02/21/20 18:59 01/24/20 10:17 Enoxaparin Sodium (Lovenox) 70 mg EVERY 12 HOURS SUBQ 01/23/20 21:00 04/22/20 20:59 01/24/20 20:14 Guaifenesin/ Codeine Phosphate (Robitussin with codeine) 5 ml Q6H PRN ORAL For Cough 01/22/20 19:00 02/17/20 18:59 01/25/20 00:23 Iron Sucrose 100 mg/Sodium Chloride 60 ml @ 240 mls/hr BEDTIME IV 01/22/20 21:00 01/25/20 21:14 01/24/20 20:12 Ondansetron HCl (Zofran) 4 mg Q6H PRN IVP Nausea & Vomiting 01/22/20 19:00 02/17/20 18:59 Polyethylene Glycol (Miralax) 17 gm DAILYPRN PRN ORAL Constipation 01/22/20 19:00 02/21/20 18:59 Last 24 Hour Vital Signs Date Time Temp Pulse Resp B/P (MAP) Pulse Ox O2 Delivery O2 Flow Rate FiO2 01/25/20 08:00 96.6 56 20 114/59 (77) 97 01/25/20 04:00 97.8 50 17 125/66 (85) 97 01/25/20 04:00 45 01/25/20 00:00 61 01/25/20 00:00 97.9 63 16 118/46 (70) 98 01/24/20 21:00 Non-Rebreather 15.0 01/24/20 20:00 97.6 60 18 112/43 (66) 98 01/24/20 20:00 55 01/24/20 19:14 96 Non-Rebreather 15.0 100 01/24/20 16:00 59 01/24/20 16:00 97.5 59 20 120/60 (80) 96 01/24/20 12:00 53 01/24/20 12:00 97.0 53 20 112/63 (79) 97 01/24/20 09:00 Non-Rebreather 15.0 01/24/20 08:27 96 Non-Rebreather 15.0 100 01/24/20 08:00 55 01/24/20 08:00 96.6 55 20 125/53 (77) 96 01/24/20 04:00 51 01/24/20 04:00 97.2 51 19 130/72 (91) 97 01/24/20 00:00 96.6 52 19 130/66 (87) 97 01/24/20 00:00 47 01/23/20 21:00 Non-Rebreather 15.0 01/23/20 20:04 94 Non-Rebreather 15.0 100 01/23/20 20:00 96.3 59 20 127/69 (88) 97 01/23/20 20:00 68 01/23/20 16:00 97.6 62 20 129/78 (95) 96 01/23/20 16:00 60 01/23/20 12:00 97.8 66 20 130/75 (93) 97 01/23/20 12:00 66 01/23/20 09:00 Non-Rebreather 15.0 Intake and Output 01/24/20 01/25/20 19:00 07:00 Intake Total 480 ml 240 ml Output Total 450 ml 600 ml Balance 30 ml -360 ml Intake Oral 480 ml 240 ml Output Urine Total 450 ml 600 ml # Voids 1 4 Labs Test 01/23/20 08:50 Stool Occult Blood Negative (NEGATIVE) Height (Feet): 5 Height (Inches): 1.00 Weight (Pounds): 155 Objective Physical Exam: Vitals: reviewed General: NAD HEENT: nc, at Neck: supple Chest: clear breath sounds bilaterally, nrb++ Cardiovascular: RRR, no s3, s4 Abdomen: soft, nontender, nd Extremities: no cce, normal range of motion Neuro: alert and oriented Eddie Pascual MD Jan 25, 2020 08:53
[2020-01-25] MEDS: Enoxaparin 80mg Inj SUBQ SCH ×2 (09:35→21:11)
[2020-01-25 10:01] LABS: HEMATOCRIT 28.9 % (37.0-47.0); HEMOGLOBIN 8.8 G/DL (12.0-16.0); MEAN CORPUSCULAR VOLUME 64 FL (80-99); PLATELET COUNT 292 K/UL (150-450); RED BLOOD COUNT 4.53 M/UL (4.20-5.40); RED CELL DISTRIBUTION WIDTH 23.3 % (11.6-14.8); WHITE BLOOD COUNT 11.4 K/UL (4.8-10.8)
--- NOTE | 2020-01-25 12:26 | NUR ---
CASE MANAGEMENT:REVIEW SI;COVID-19 PNA. 96.6 45 20 140/59 97% 15L NRB WBC 11.4 H/H 8.8/28.9 CA 7.5 CRP 18.3 ALB 2.3 IS;ROCEPHIN IV Q24 IRON SUCROSE IV HS IVF D5W @ 50 ML/HR LOVENOX SUBQ Q12 TELEMETRY STATUS DCP;PATIENT IS FROM HOME
--- NOTE | 2020-01-25 12:29 | NUR ---
*-* INSURANCE *-* UPDATED CLINICALS HAVE BEEN FAXED TO: ILANA HENDRICKS P:[phone] F:[phone]
--- NOTE | 2020-01-25 12:32 | Pulmonology Progress Note ---
Subjective ROS Limited/Unobtainable: Yes Interval Events: Remains on NRBM Constitutional: Denies: fever, chills HEENT: Repors: no symptoms Respiratory: Reports: no symptoms Cardiovascular: Reports: no symptoms Gastrointestinal/Abdominal: Denies: nausea, vomiting, diarrhea Genitourinary: Reports: no symptoms Musculoskeletal: Denies: pain Allergies: Coded Allergies: No Known Allergies (Unverified , 10/19/15) All Systems: reviewed and negative except above Objective Last 24 Hour Vital Signs Date Time Temp Pulse Resp B/P (MAP) Pulse Ox O2 Delivery O2 Flow Rate FiO2 01/25/20 12:09 96.7 65 19 140/59 (86) 98 01/25/20 12:00 68 01/25/20 09:00 45 01/25/20 09:00 Non-Rebreather 15.0 01/25/20 08:00 96.6 56 20 114/59 (77) 97 01/25/20 04:00 97.8 50 17 125/66 (85) 97 01/25/20 04:00 45 01/25/20 00:00 61 01/25/20 00:00 97.9 63 16 118/46 (70) 98 01/24/20 21:00 Non-Rebreather 15.0 01/24/20 20:00 97.6 60 18 112/43 (66) 98 01/24/20 20:00 55 01/24/20 19:14 96 Non-Rebreather 15.0 100 01/24/20 16:00 59 01/24/20 16:00 97.5 59 20 120/60 (80) 96 Intake and Output 01/24/20 01/25/20 19:00 07:00 Intake Total 480 ml 240 ml Output Total 450 ml 600 ml Balance 30 ml -360 ml Intake Oral 480 ml 240 ml Output Urine Total 450 ml 600 ml # Voids 1 4 General Appearance: no acute distress HEENT: normocephalic Respiratory: chest wall non-tender, lungs clear Cardiovascular: normal peripheral pulses Abdomen: normal bowel sounds, soft, non tender Extremities: no cyanosis, no clubbing, no edema Laboratory Tests 01/25/20 09:50: White Blood Count 11.4H, Red Blood Count 4.53, Hemoglobin 8.8L, Hematocrit 28.9L , Mean Corpuscular Volume 64L, Mean Corpuscular Hemoglobin 19.5L, Mean Corpuscular Hemoglobin Concent 30.5L, Red Cell Distribution Width 23.3H, Platelet Count 292, Mean Platelet Volume 7.0, Neutrophils (%) (Auto) , Lymphocytes (%) (Auto) , Monocytes (%) (Auto) , Eosinophils (%) (Auto) , Basophils (%) (Auto) , Differential Total Cells Counted 100, Neutrophils % ( Manual) 74, Lymphocytes % (Manual) 18L, Monocytes % (Manual) 8, Eosinophils % ( Manual) 0, Basophils % (Manual) 0, Band Neutrophils 0, Platelet Estimate Adequate, Platelet Morphology Normal, Polychromasia 2+, Anisocytosis 3+, Microcytosis 2+ Current Medications Medications (Trade) Dose Ordered Sig/Bhargav Route PRN Reason Start Time Stop Time Status Last Admin Dose Admin Acetaminophen (Tylenol) 650 mg Q6H PRN ORAL Temp >100.5 01/22/20 19:00 02/17/20 18:59 01/23/20 02:07 Acetaminophen (Tylenol) 650 mg Q6H PRN ORAL Mild Pain (Pain Scale 1-3) 01/22/20 19:00 02/21/20 18:59 Albuterol Sulfate (Proventil MDI) 2 puff Q4H PRN INH Shortness of Breath 01/23/20 13:30 04/22/20 13:29 Ceftriaxone Sodium 2 gm/ Dextrose 55 ml @ 110 mls/hr Q24H IVPB 01/23/20 16:00 01/28/20 15:59 01/24/20 15:41 Dexamethasone (Decadron) 6 mg Q24H ORAL 01/23/20 11:00 01/28/20 12:00 01/25/20 11:38 Dextrose/Sodium Chloride 1,000 ml @ 50 mls/hr Q20H IV 01/22/20 19:00 02/21/20 18:59 01/24/20 10:17 Enoxaparin Sodium (Lovenox) 70 mg EVERY 12 HOURS SUBQ 01/23/20 21:00 04/22/20 20:59 01/25/20 09:35 Guaifenesin/ Codeine Phosphate (Robitussin with codeine) 5 ml Q6H PRN ORAL For Cough 01/22/20 19:00 02/17/20 18:59 01/25/20 00:23 Iron Sucrose 100 mg/Sodium Chloride 60 ml @ 240 mls/hr BEDTIME IV 01/22/20 21:00 01/25/20 21:14 01/24/20 20:12 Ondansetron HCl (Zofran) 4 mg Q6H PRN IVP Nausea & Vomiting 01/22/20 19:00 02/17/20 18:59 Polyethylene Glycol (Miralax) 17 gm DAILYPRN PRN ORAL Constipation 01/22/20 19:00 02/21/20 18:59 Assessment/Plan Assessment/Plan IMPRESSION: 1. Acvute hypoxemic respiratory failutre 2. COVID-19 pneumonia. DISCUSSION: Continue IV fluids and antibiotics. Seen by ID. Continue oxygen and pulmonary hygiene. I will follow carefully. S/p remdesivir and dexamethasone Jerald Bess Omar Syed MD Jan 25, 2020 12:32
--- NOTE | 2020-01-25 12:47 | Nephrology Progress Note ---
Assessment/Plan Problem List: (1) Hypokalemia (2) Anemia Assessment: Iron deficiency (3) Suspected COVID-19 virus infection Assessment Hypokalemia, likely depletional Severe anemia, low iron Suspected COVID-19 infection Elevated inflammatory markers Plan Lab ordered. Stable from renal standpoint to view Will monitor renal parameters and electrolytes. Continue per consultants. On Remdesivir and Decadron Change hypotonic solution to isotonic solution Potassium supplements IV iron Patient also transfused Continue per consultants Per orders Subjective ROS Limited/Unobtainable: No Objective Objective Last 24 Hour Vital Signs Date Time Temp Pulse Resp B/P (MAP) Pulse Ox O2 Delivery O2 Flow Rate FiO2 01/25/20 12:09 96.7 65 19 140/59 (86) 98 01/25/20 12:00 68 01/25/20 09:00 45 01/25/20 09:00 Non-Rebreather 15.0 01/25/20 08:00 96.6 56 20 114/59 (77) 97 01/25/20 04:00 97.8 50 17 125/66 (85) 97 01/25/20 04:00 45 01/25/20 00:00 61 01/25/20 00:00 97.9 63 16 118/46 (70) 98 01/24/20 21:00 Non-Rebreather 15.0 01/24/20 20:00 97.6 60 18 112/43 (66) 98 01/24/20 20:00 55 01/24/20 19:14 96 Non-Rebreather 15.0 100 01/24/20 16:00 59 01/24/20 16:00 97.5 59 20 120/60 (80) 96 Intake and Output 01/24/20 01/25/20 19:00 07:00 Intake Total 480 ml 240 ml Output Total 450 ml 600 ml Balance 30 ml -360 ml Intake Oral 480 ml 240 ml Output Urine Total 450 ml 600 ml # Voids 1 4 Laboratory Tests 01/25/20 09:50: White Blood Count 11.4H, Red Blood Count 4.53, Hemoglobin 8.8L, Hematocrit 28.9L , Mean Corpuscular Volume 64L, Mean Corpuscular Hemoglobin 19.5L, Mean Corpuscular Hemoglobin Concent 30.5L, Red Cell Distribution Width 23.3H, Platelet Count 292, Mean Platelet Volume 7.0, Neutrophils (%) (Auto) , Lymphocytes (%) (Auto) , Monocytes (%) (Auto) , Eosinophils (%) (Auto) , Basophils (%) (Auto) , Differential Total Cells Counted 100, Neutrophils % ( Manual) 74, Lymphocytes % (Manual) 18L, Monocytes % (Manual) 8, Eosinophils % ( Manual) 0, Basophils % (Manual) 0, Band Neutrophils 0, Platelet Estimate Adequate, Platelet Morphology Normal, Polychromasia 2+, Anisocytosis 3+, Microcytosis 2+ Height (Feet): 5 Height (Inches): 1.00 Weight (Pounds): 155 General Appearance: no apparent distress Cardiovascular: normal rate Abdomen: soft Objective No change Kristian Barry MD Jan 25, 2020 12:47
--- NOTE | 2020-01-25 14:16 | Infectious Diseases Prog Note ---
Assessment/Plan Assessment/Plan A; 1. Covid19 pneumonia 2. leucocytosis improving 3. anemia 4. Hypoxemia P 1. Finished remdesivir 2. Continue dexamethasone & Rocephin 3. continue isolation Subjective ROS Limited/Unobtainable: No Constitutional: Reports: no symptoms Respiratory: Reports: shortness of breath, dry cough Cardiovascular: Reports: no symptoms Gastrointestinal/Abdominal: Reports: no symptoms Allergies: Coded Allergies: No Known Allergies (Unverified , 10/19/15) Objective Last 24 Hour Vital Signs Date Time Temp Pulse Resp B/P (MAP) Pulse Ox O2 Delivery O2 Flow Rate FiO2 01/25/20 12:09 96.7 65 19 140/59 (86) 98 01/25/20 12:00 68 01/25/20 09:00 45 01/25/20 09:00 Non-Rebreather 15.0 01/25/20 08:00 96.6 56 20 114/59 (77) 97 01/25/20 04:00 97.8 50 17 125/66 (85) 97 01/25/20 04:00 45 01/25/20 00:00 61 01/25/20 00:00 97.9 63 16 118/46 (70) 98 01/24/20 21:00 Non-Rebreather 15.0 01/24/20 20:00 97.6 60 18 112/43 (66) 98 01/24/20 20:00 55 01/24/20 19:14 96 Non-Rebreather 15.0 100 01/24/20 16:00 59 01/24/20 16:00 97.5 59 20 120/60 (80) 96 Height (Feet): 5 Height (Inches): 1.00 Weight (Pounds): 155 HEENT: mucous membranes moist Respiratory/Chest: other - oxygen by rebreathing mask Cardiovascular: normal rate Abdomen: soft, non tender Extremities: no edema Neurologic/Psychiatric: alert, oriented x 3, responsive Laboratory Tests Test 01/25/20 09:50 White Blood Count 11.4 K/UL (4.8-10.8) H Red Blood Count 4.53 M/UL (4.20-5.40) Hemoglobin 8.8 G/DL (12.0-16.0) L Hematocrit 28.9 % (37.0-47.0) L Mean Corpuscular Volume 64 FL (80-99) L Mean Corpuscular Hemoglobin 19.5 PG (27.0-31.0) L Mean Corpuscular Hemoglobin Concent 30.5 G/DL (32.0-36.0) L Red Cell Distribution Width 23.3 % (11.6-14.8) H Platelet Count 292 K/UL (150-450) Mean Platelet Volume 7.0 FL (6.5-10.1) Neutrophils (%) (Auto) % (45.0-75.0) Lymphocytes (%) (Auto) % (20.0-45.0) Monocytes (%) (Auto) % (1.0-10.0) Eosinophils (%) (Auto) % (0.0-3.0) Basophils (%) (Auto) % (0.0-2.0) Differential Total Cells Counted 100 Neutrophils % (Manual) 74 % (45-75) Lymphocytes % (Manual) 18 % (20-45) L Monocytes % (Manual) 8 % (1-10) Eosinophils % (Manual) 0 % (0-3) Basophils % (Manual) 0 % (0-2) Band Neutrophils 0 % (0-8) Platelet Estimate Adequate Platelet Morphology Normal Polychromasia 2+ Anisocytosis 3+ Microcytosis 2+ Current Medications Medications (Trade) Dose Ordered Sig/Bhargav Route PRN Reason Start Time Stop Time Status Last Admin Dose Admin Acetaminophen (Tylenol) 650 mg Q6H PRN ORAL Temp >100.5 01/22/20 19:00 02/17/20 18:59 01/23/20 02:07 Acetaminophen (Tylenol) 650 mg Q6H PRN ORAL Mild Pain (Pain Scale 1-3) 01/22/20 19:00 02/21/20 18:59 Albuterol Sulfate (Proventil MDI) 2 puff Q4H PRN INH Shortness of Breath 01/23/20 13:30 04/22/20 13:29 Ceftriaxone Sodium 2 gm/ Dextrose 55 ml @ 110 mls/hr Q24H IVPB 01/23/20 16:00 01/28/20 15:59 01/24/20 15:41 Dexamethasone (Decadron) 6 mg Q24H ORAL 01/23/20 11:00 01/28/20 12:00 01/25/20 11:38 Dextrose/Sodium Chloride 1,000 ml @ 50 mls/hr Q20H IV 01/22/20 19:00 02/21/20 18:59 01/24/20 10:17 Enoxaparin Sodium (Lovenox) 70 mg EVERY 12 HOURS SUBQ 01/23/20 21:00 04/22/20 20:59 01/25/20 09:35 Guaifenesin/ Codeine Phosphate (Robitussin with codeine) 5 ml Q6H PRN ORAL For Cough 01/22/20 19:00 02/17/20 18:59 01/25/20 00:23 Iron Sucrose 100 mg/Sodium Chloride 60 ml @ 240 mls/hr BEDTIME IV 01/22/20 21:00 01/25/20 21:14 01/24/20 20:12 Ondansetron HCl (Zofran) 4 mg Q6H PRN IVP Nausea & Vomiting 01/22/20 19:00 02/17/20 18:59 Polyethylene Glycol (Miralax) 17 gm DAILYPRN PRN ORAL Constipation 01/22/20 19:00 02/21/20 18:59 Yosef Bess MD Jan 25, 2020 14:16
[2020-01-25] MEDS: cefTRIAXone 2 GM in D5W 55 ML IVPB SCH (16:09)
--- NOTE | 2020-01-25 19:43 | NUR ---
HAND-OFF: Report given to Report given to Dusty Martinez and DUSTY Arndt..
--- NOTE | 2020-01-25 19:45 | NUR ---
NURSE NOTES: Patient is awake alert and oriented x4. Denies pain or discomfort. IV site on right hand 22 gauge intact with no infiltration. wood heel flap inserter is intact and functioning. She is on Simple mask at 8 LPM. Call light and bedside table is within reach. Bed is at lowest position, locked with side rails up. Will continue plan of care.
[2020-01-25] MEDS: Iron Sucrose 100 MG in NS 55 ML IV SCH (21:08)
--- NOTE | 2020-01-25 21:24 | General Progress Note ---
Assessment/Plan Problem List: (1) Anemia ICD Codes: D64.9 - Anemia, unspecified SNOMED: 842844492 Qualifiers: Qualified Codes: D64.9 - Anemia, unspecified (2) Pneumonia ICD Codes: J18.9 - Pneumonia, unspecified organism SNOMED: 386420388 Qualifiers: Qualified Codes: J18.9 - Pneumonia, unspecified organism (3) Elevated C-reactive protein ICD Codes: R79.82 - Elevated C-reactive protein (CRP) SNOMED: 749770863315668 (4) Elevated d-dimer ICD Codes: R79.89 - Other specified abnormal findings of blood chemistry SNOMED: 344712914 (5) Suspected COVID-19 virus infection ICD Codes: Z20.828 - Contact with and (suspected) exposure to other viral communicable diseases SNOMED: 993020859 (6) Malnutrition ICD Codes: E46 - Unspecified protein-calorie malnutrition SNOMED: 15759743 Status: progressing, unchanged Assessment/Plan: positive covid pna sepsis reviewed chart and labs afebrile Subjective ROS Limited/Unobtainable: Yes Allergies: Coded Allergies: No Known Allergies (Unverified , 10/19/15) Objective Last 24 Hour Vital Signs Date Time Temp Pulse Resp B/P (MAP) Pulse Ox O2 Delivery O2 Flow Rate FiO2 01/25/20 19:08 97 Simple Mask 8.0 60 01/25/20 16:00 98.1 78 18 122/59 (80) 98 01/25/20 16:00 67 01/25/20 15:09 Simple Mask 8.0 01/25/20 12:09 96.7 65 19 140/59 (86) 98 01/25/20 12:00 68 01/25/20 09:00 45 01/25/20 09:00 Non-Rebreather 15.0 01/25/20 08:00 96.6 56 20 114/59 (77) 97 01/25/20 04:00 97.8 50 17 125/66 (85) 97 01/25/20 04:00 45 01/25/20 00:00 61 01/25/20 00:00 97.9 63 16 118/46 (70) 98 Intake and Output 01/24/20 01/25/20 19:00 07:00 Intake Total 480 ml 240 ml Output Total 450 ml 600 ml Balance 30 ml -360 ml Intake Oral 480 ml 240 ml Output Urine Total 450 ml 600 ml # Voids 1 4 Laboratory Tests 01/25/20 09:50: White Blood Count 11.4H, Red Blood Count 4.53, Hemoglobin 8.8L, Hematocrit 28.9L , Mean Corpuscular Volume 64L, Mean Corpuscular Hemoglobin 19.5L, Mean Corpuscular Hemoglobin Concent 30.5L, Red Cell Distribution Width 23.3H, Platelet Count 292, Mean Platelet Volume 7.0, Neutrophils (%) (Auto) , Lymphocytes (%) (Auto) , Monocytes (%) (Auto) , Eosinophils (%) (Auto) , Basophils (%) (Auto) , Differential Total Cells Counted 100, Neutrophils % ( Manual) 74, Lymphocytes % (Manual) 18L, Monocytes % (Manual) 8, Eosinophils % ( Manual) 0, Basophils % (Manual) 0, Band Neutrophils 0, Platelet Estimate Adequate, Platelet Morphology Normal, Polychromasia 2+, Anisocytosis 3+, Microcytosis 2+ Height (Feet): 5 Height (Inches): 1.00 Weight (Pounds): 155 Chintan Mills MD Jan 25, 2020 21:24
[2020-01-26] VITALS: BP 115/70
[2020-01-26] MEDS: D5NS 1,000 ML IV SCH ×2 (02:48→23:33)
[2020-01-26 04:00] VITALS: BP 112/57
[2020-01-26 06:58] LABS: ALANINE AMINOTRANSFERASE 23 U/L (12-78); ALBUMIN 2.3 G/DL (3.4-5.0); ALBUMIN/GLOBULIN RATIO 0.6 (1.0-2.7); ALKALINE PHOSPHATASE 78 U/L (46-116); ANION GAP 8 mmol/L (5-15); ASPARTATE AMINO TRANSFERASE 30 U/L (15-37); BILIRUBIN,TOTAL 0.3 MG/DL (0.2-1.0); BLOOD UREA NITROGEN 9 mg/dL (7-18); CALCIUM 7.3 MG/DL (8.5-10.1); CARBON DIOXIDE 27 MMOL/L (21-32); CHLORIDE 104 MMOL/L (98-107); CREATININE 0.7 MG/DL (0.55-1.30); PHOSPHORUS 4.2 MG/DL (2.5-4.9); POTASSIUM 3.7 MMOL/L (3.5-5.1); SODIUM 139 MMOL/L (136-145)
[2020-01-26 07:17] LABS: HEMATOCRIT 29.2 % (37.0-47.0); HEMOGLOBIN 8.6 G/DL (12.0-16.0); MEAN CORPUSCULAR VOLUME 67 FL (80-99); PLATELET COUNT 306 K/UL (150-450); RED BLOOD COUNT 4.35 M/UL (4.20-5.40); RED CELL DISTRIBUTION WIDTH 30.1 % (11.6-14.8); WHITE BLOOD COUNT 12.8 K/UL (4.8-10.8)
--- NOTE | 2020-01-26 07:30 | NUR ---
NURSE NOTES: Received report from PRAVEEN Martinez. Pt. AAO x4. Speech is clear. SR 69 on monitor. Breathing is shallow, but regular and unlabored with simple mask 8L. Radial and dorsalis pedis pulses palpable. R hand 22 g patent, no redness or infiltration. Discussed plan of care for the day. Bed low and locked, call light in reach, side rails x2 raised, fall education provided.
--- NOTE | 2020-01-26 07:32 | NUR ---
HAND-OFF: Report given to PRAVEEN Carlisle. Pt stable.
--- NOTE | 2020-01-26 07:57 | NUR ---
CASE MANAGEMENT:REVIEW 01/26/20 SI: COVID PNA. ANEMIA 97.9 61 18 112/57 93% ON 8L/60% VIA MASK WBC+12.8 H/H-8.6/29.2 CA-7.3 IS: IV ROCEPHIN Q24 IVF@50/HR LOVENOX SQ Q12 DECADRON PO Q24 : TELEMETRY DCP: PATIENT IS FROM HOME PLAN: COMPLETED COURSE OF REMDESIVIR
[2020-01-26 08:00] VITALS: BP 108/90
[2020-01-26] MEDS: Enoxaparin 80mg Inj SUBQ SCH ×2 (08:13→20:18)
--- NOTE | 2020-01-26 09:30 | General Progress Note ---
Assessment/Plan Problem List: (1) Malnutrition ICD Codes: E46 - Unspecified protein-calorie malnutrition SNOMED: 08963850 (2) Suspected COVID-19 virus infection ICD Codes: Z20.828 - Contact with and (suspected) exposure to other viral communicable diseases SNOMED: 810077366 (3) Pneumonia ICD Codes: J18.9 - Pneumonia, unspecified organism SNOMED: 580841424 Qualifiers: Qualified Codes: J18.9 - Pneumonia, unspecified organism (4) Anemia ICD Codes: D64.9 - Anemia, unspecified SNOMED: 512006002 Qualifiers: Qualified Codes: D64.9 - Anemia, unspecified Status: progressing, unchanged Assessment/Plan: abx pt diet cbc bmp am Subjective Constitutional: Reports: weakness Allergies: Coded Allergies: No Known Allergies (Unverified , 10/19/15) All Systems: reviewed and negative except above Subjective breathing tx calm in bed Objective Last 24 Hour Vital Signs Date Time Temp Pulse Resp B/P (MAP) Pulse Ox O2 Delivery O2 Flow Rate FiO2 01/26/20 08:00 68 01/26/20 08:00 97.9 71 20 108/90 (96) 94 01/26/20 04:00 97.9 61 18 112/57 (75) 93 01/26/20 04:00 56 01/26/20 00:00 68 01/26/20 00:00 97.4 76 20 115/70 (85) 94 01/25/20 21:00 Simple Mask 8.0 01/25/20 20:00 76 01/25/20 20:00 97.6 66 20 115/56 (75) 95 01/25/20 19:08 97 Simple Mask 8.0 60 01/25/20 16:00 98.1 78 18 122/59 (80) 98 01/25/20 16:00 67 01/25/20 15:09 Simple Mask 8.0 01/25/20 12:09 96.7 65 19 140/59 (86) 98 01/25/20 12:00 68 Intake and Output 01/25/20 01/26/20 19:00 07:00 Intake Total 625 ml Output Total 1200 ml Balance -575 ml Intake Oral 120 ml IV Total 505 ml Output Urine Total 1200 ml # Voids 3 Laboratory Tests 01/25/20 09:50: White Blood Count 11.4H, Red Blood Count 4.53, Hemoglobin 8.8L, Hematocrit 28.9L , Mean Corpuscular Volume 64L, Mean Corpuscular Hemoglobin 19.5L, Mean Corpuscular Hemoglobin Concent 30.5L, Red Cell Distribution Width 23.3H, Platelet Count 292, Mean Platelet Volume 7.0, Neutrophils (%) (Auto) , Lymphocytes (%) (Auto) , Monocytes (%) (Auto) , Eosinophils (%) (Auto) , Basophils (%) (Auto) , Differential Total Cells Counted 100, Neutrophils % ( Manual) 74, Lymphocytes % (Manual) 18L, Monocytes % (Manual) 8, Eosinophils % ( Manual) 0, Basophils % (Manual) 0, Band Neutrophils 0, Platelet Estimate Adequate, Platelet Morphology Normal, Polychromasia 2+, Anisocytosis 3+, Microcytosis 2+ 01/26/20 05:45: White Blood Count 12.8H, Red Blood Count 4.35, Hemoglobin 8.6L, Hematocrit 29.2L , Mean Corpuscular Volume 67L, Mean Corpuscular Hemoglobin 19.8L, Mean Corpuscular Hemoglobin Concent 29.5L, Red Cell Distribution Width 30.1H, Platelet Count 306, Mean Platelet Volume 7.9, Neutrophils (%) (Auto) , Lymphocytes (%) (Auto) , Monocytes (%) (Auto) , Eosinophils (%) (Auto) , Basophils (%) (Auto) , Neutrophils % (Manual) [Pending], Lymphocytes % (Manual) [Pending], Platelet Estimate [Pending], Platelet Morphology [Pending], Sodium Level 139, Potassium Level 3.7, Chloride Level 104, Carbon Dioxide Level 27, Anion Gap 8, Blood Urea Nitrogen 9, Creatinine 0.7, Estimat Glomerular Filtration Rate > 60, Glucose Level 138H, Calcium Level 7.3L, Phosphorus Level 4.2, Magnesium Level 2.0, Total Bilirubin 0.3, Aspartate Amino Transf (AST/SGOT ) 30, Alanine Aminotransferase (ALT/SGPT) 23, Alkaline Phosphatase 78, C- Reactive Protein, Quantitative 16.3H, Total Protein 6.2L, Albumin 2.3L, Globulin 3.9, Albumin/Globulin Ratio 0.6L Height (Feet): 5 Height (Inches): 1.00 Weight (Pounds): 155 General Appearance: lethargic EENT: normal ENT inspection Neck: normal alignment Cardiovascular: normal rate, regular rhythm Respiratory/Chest: no respiratory distress, no accessory muscle use Extremities: normal inspection Skin: normal pigmentation Louis Irvin DO Jan 26, 2020 09:30
--- NOTE | 2020-01-26 10:03 | NUR ---
*-* INSURANCE *-* UPDATED CLINICALS AND REVIEWS HAVE BEEN FAXED TO: ILANA HENDRICKS P:[phone] F:[phone]
--- NOTE | 2020-01-26 10:47 | Infectious Diseases Prog Note ---
Assessment/Plan Assessment/Plan antibiotics : ceftriaxone A 1. Covid 19 pneumonia improving on 8 liters, O2 98 percent saturation s/p remdesivir EUA 2. leucocytosis increased, likely secondary to steroids 3. anemia P 1. continue dexamethasone day 8 2 d/c. ceftriaxone 3. continue isolation Subjective Constitutional: Denies: fever, chills Respiratory: Reports: shortness of breath - decreased, dry cough - decreased Gastrointestinal/Abdominal: Denies: nausea, vomiting, diarrhea Musculoskeletal: Denies: pain Allergies: Coded Allergies: No Known Allergies (Unverified , 10/19/15) Objective Last 24 Hour Vital Signs Date Time Temp Pulse Resp B/P (MAP) Pulse Ox O2 Delivery O2 Flow Rate FiO2 01/26/20 09:00 Simple Mask 8.0 01/26/20 08:00 68 01/26/20 08:00 97.9 71 20 108/90 (96) 94 01/26/20 04:00 97.9 61 18 112/57 (75) 93 01/26/20 04:00 56 01/26/20 00:00 68 01/26/20 00:00 97.4 76 20 115/70 (85) 94 01/25/20 21:00 Simple Mask 8.0 01/25/20 20:00 76 01/25/20 20:00 97.6 66 20 115/56 (75) 95 01/25/20 19:08 97 Simple Mask 8.0 60 01/25/20 16:00 98.1 78 18 122/59 (80) 98 01/25/20 16:00 67 01/25/20 15:09 Simple Mask 8.0 01/25/20 12:09 96.7 65 19 140/59 (86) 98 01/25/20 12:00 68 Height (Feet): 5 Height (Inches): 1.00 Weight (Pounds): 155 Laboratory Tests Test 01/26/20 05:45 White Blood Count 12.8 K/UL (4.8-10.8) H Red Blood Count 4.35 M/UL (4.20-5.40) Hemoglobin 8.6 G/DL (12.0-16.0) L Hematocrit 29.2 % (37.0-47.0) L Mean Corpuscular Volume 67 FL (80-99) L Mean Corpuscular Hemoglobin 19.8 PG (27.0-31.0) L Mean Corpuscular Hemoglobin Concent 29.5 G/DL (32.0-36.0) L Red Cell Distribution Width 30.1 % (11.6-14.8) H Platelet Count 306 K/UL (150-450) Mean Platelet Volume 7.9 FL (6.5-10.1) Neutrophils (%) (Auto) % (45.0-75.0) Lymphocytes (%) (Auto) % (20.0-45.0) Monocytes (%) (Auto) % (1.0-10.0) Eosinophils (%) (Auto) % (0.0-3.0) Basophils (%) (Auto) % (0.0-2.0) Differential Total Cells Counted 100 Neutrophils % (Manual) 89 % (45-75) H Lymphocytes % (Manual) 7 % (20-45) L Monocytes % (Manual) 4 % (1-10) Eosinophils % (Manual) 0 % (0-3) Basophils % (Manual) 0 % (0-2) Band Neutrophils 0 % (0-8) Platelet Estimate Adequate Platelet Morphology Normal Hypochromasia 2+ Anisocytosis 4+ Microcytosis 4+ Sodium Level 139 MMOL/L (136-145) Potassium Level 3.7 MMOL/L (3.5-5.1) Chloride Level 104 MMOL/L (98-107) Carbon Dioxide Level 27 MMOL/L (21-32) Anion Gap 8 mmol/L (5-15) Blood Urea Nitrogen 9 mg/dL (7-18) Creatinine 0.7 MG/DL (0.55-1.30) Estimat Glomerular Filtration Rate > 60 mL/min (>60) Glucose Level 138 MG/DL (74-106) H Calcium Level 7.3 MG/DL (8.5-10.1) L Phosphorus Level 4.2 MG/DL (2.5-4.9) Magnesium Level 2.0 MG/DL (1.8-2.4) Total Bilirubin 0.3 MG/DL (0.2-1.0) Aspartate Amino Transf (AST/SGOT) 30 U/L (15-37) Alanine Aminotransferase (ALT/SGPT) 23 U/L (12-78) Alkaline Phosphatase 78 U/L (46-116) C-Reactive Protein, Quantitative 16.3 mg/dL (0.00-0.90) H Total Protein 6.2 G/DL (6.4-8.2) L Albumin 2.3 G/DL (3.4-5.0) L Globulin 3.9 g/dL Albumin/Globulin Ratio 0.6 (1.0-2.7) L Current Medications Medications (Trade) Dose Ordered Sig/Bhargav Route PRN Reason Start Time Stop Time Status Last Admin Dose Admin Acetaminophen (Tylenol) 650 mg Q6H PRN ORAL Temp >100.5 01/22/20 19:00 02/17/20 18:59 01/23/20 02:07 Acetaminophen (Tylenol) 650 mg Q6H PRN ORAL Mild Pain (Pain Scale 1-3) 01/22/20 19:00 02/21/20 18:59 Albuterol Sulfate (Proventil MDI) 2 puff Q4H PRN INH Shortness of Breath 01/23/20 13:30 04/22/20 13:29 Ceftriaxone Sodium 2 gm/ Dextrose 55 ml @ 110 mls/hr Q24H IVPB 01/23/20 16:00 01/28/20 15:59 01/25/20 16:09 Dexamethasone (Decadron) 6 mg Q24H ORAL 01/23/20 11:00 01/28/20 12:00 01/25/20 11:38 Dextrose/Sodium Chloride 1,000 ml @ 50 mls/hr Q20H IV 01/22/20 19:00 02/21/20 18:59 01/26/20 02:48 Enoxaparin Sodium (Lovenox) 70 mg EVERY 12 HOURS SUBQ 01/23/20 21:00 04/22/20 20:59 01/26/20 08:13 Guaifenesin/ Codeine Phosphate (Robitussin with codeine) 5 ml Q6H PRN ORAL For Cough 01/22/20 19:00 02/17/20 18:59 01/25/20 21:11 Ondansetron HCl (Zofran) 4 mg Q6H PRN IVP Nausea & Vomiting 01/22/20 19:00 02/17/20 18:59 Polyethylene Glycol (Miralax) 17 gm DAILYPRN PRN ORAL Constipation 01/22/20 19:00 02/21/20 18:59 Pati Fonseca MD Jan 26, 2020 10:47
--- NOTE | 2020-01-26 11:03 | Hematology/Onc Progress Note ---
Assessment/Plan Assessment/Plan # Anemia of iron deficiency, unspecified rule out gi bleed --> obtain anemia panel, has been reviewed --> have begun on iv iron and continue x 5 doses --> review if occult blood is + (review this to make sure +). Can consider gi eval --> hgb goal is >7, transfuse as needed --> trend CBC daily to make sure no major acute drop --> no evidence of hemolysis noted --> hgb trend: 8.5->8.6 --> 01/22 stool ob neg # Leukocytosis/elevated white blood cell count, unspecified likely related to underlying stress reaction, smoking v covid19 infection --> have reviewed peripheral smear and bandemia/neutrophilia noted --> continue antibiotics if they have been started by ID team: cftx --> monitor for resolution --> started on remdesivir --> wbc trend 19-->9-->14.7 # Elecated ddimer --> will recheck --> likely covid related --> is on lovenox for now --> 01/20 jaden duplex negative # Hypokalemia, likely depletional --> per renal, replete # Suspected COVID-19 infection # Elevated inflammatory markers # Dvt ppx with lovenox Appreciate consultaiton and agnes Rn Subjective Constitutional: Denies: no symptoms, chills, fever, malaise, weakness, other HEENT: Denies: no symptoms, eye pain, blurred vision, tearing, double vision, ear pain, ear discharge, nose pain, nose congestion, throat pain, throat swelling, mouth pain, mouth swelling, other Cardiovascular: Denies: no symptoms, chest pain, edema, irregular heart rate, lightheadedness, palpitations, syncope, other Respiratory: Denies: no symptoms, cough, shortness of breath, SOB with excertion, SOB at rest, sputum, wheezing, other Gastrointestinal/Abdominal: Denies: no symptoms, abdomen distended, abdominal pain, black stools, tarry stools, blood in stool, constipated, diarrhea, difficulty swallowing, nausea, poor appetite, poor fluid intake, rectal bleeding , vomiting, other Genitourinary: Denies: no symptoms, burning, discharge, frequency, flank pain, hematuria, incontinence, pain, urgency, other Neurologic/Psychiatric: Denies: no symptoms, anxiety, depressed, emotional problems, headache, numbness, paresthesia, pre-existing deficit, seizure, tingling, tremors, weakness, other Endocrine: Denies: no symptoms, excessive sweating, flushing, intolerance to cold, intolerance to heat, increased hunger, increased thirst, increased urine, unexplained weight gain, unexplained weight loss, other Allergies: Coded Allergies: No Known Allergies (Unverified , 10/19/15) Subjective 01/20 no events, has been started on iv iron, will recheck ddimer 01/21 jaden duplex negative for dvt, nrb o2, hgb 8.5, no distress 01/22 dry cough+, remdesivir, iv iron, nrb, stool ob pending 01/23 no overnight events, afebrile, bp stable 01/24 no bleeding, hgb is better, remains on iv iron, hgb 8.5 01/25 covid19 pna is better, labs noted, no bleeding, on abx Objective Objective Current Medications Medications (Trade) Dose Ordered Sig/Bhargav Route PRN Reason Start Time Stop Time Status Last Admin Dose Admin Acetaminophen (Tylenol) 650 mg Q6H PRN ORAL Temp >100.5 01/22/20 19:00 02/17/20 18:59 01/23/20 02:07 Acetaminophen (Tylenol) 650 mg Q6H PRN ORAL Mild Pain (Pain Scale 1-3) 01/22/20 19:00 02/21/20 18:59 Albuterol Sulfate (Proventil MDI) 2 puff Q4H PRN INH Shortness of Breath 01/23/20 13:30 04/22/20 13:29 Dexamethasone (Decadron) 6 mg Q24H ORAL 01/23/20 11:00 01/28/20 12:00 01/25/20 11:38 Dextrose/Sodium Chloride 1,000 ml @ 50 mls/hr Q20H IV 01/22/20 19:00 02/21/20 18:59 01/26/20 02:48 Enoxaparin Sodium (Lovenox) 70 mg EVERY 12 HOURS SUBQ 01/23/20 21:00 04/22/20 20:59 01/26/20 08:13 Guaifenesin/ Codeine Phosphate (Robitussin with codeine) 5 ml Q6H PRN ORAL For Cough 01/22/20 19:00 02/17/20 18:59 01/25/20 21:11 Ondansetron HCl (Zofran) 4 mg Q6H PRN IVP Nausea & Vomiting 01/22/20 19:00 02/17/20 18:59 Polyethylene Glycol (Miralax) 17 gm DAILYPRN PRN ORAL Constipation 01/22/20 19:00 02/21/20 18:59 Last 24 Hour Vital Signs Date Time Temp Pulse Resp B/P (MAP) Pulse Ox O2 Delivery O2 Flow Rate FiO2 01/26/20 09:00 Simple Mask 8.0 01/26/20 08:00 68 01/26/20 08:00 97.9 71 20 108/90 (96) 94 01/26/20 04:00 97.9 61 18 112/57 (75) 93 01/26/20 04:00 56 01/26/20 00:00 68 01/26/20 00:00 97.4 76 20 115/70 (85) 94 01/25/20 21:00 Simple Mask 8.0 01/25/20 20:00 76 01/25/20 20:00 97.6 66 20 115/56 (75) 95 01/25/20 19:08 97 Simple Mask 8.0 60 01/25/20 16:00 98.1 78 18 122/59 (80) 98 01/25/20 16:00 67 01/25/20 15:09 Simple Mask 8.0 01/25/20 12:09 96.7 65 19 140/59 (86) 98 01/25/20 12:00 68 01/25/20 09:00 45 01/25/20 09:00 Non-Rebreather 15.0 01/25/20 08:00 96.6 56 20 114/59 (77) 97 01/25/20 04:00 97.8 50 17 125/66 (85) 97 01/25/20 04:00 45 01/25/20 00:00 61 01/25/20 00:00 97.9 63 16 118/46 (70) 98 01/24/20 21:00 Non-Rebreather 15.0 01/24/20 20:00 97.6 60 18 112/43 (66) 98 01/24/20 20:00 55 01/24/20 19:14 96 Non-Rebreather 15.0 100 01/24/20 16:00 59 01/24/20 16:00 97.5 59 20 120/60 (80) 96 01/24/20 12:00 53 01/24/20 12:00 97.0 53 20 112/63 (79) 97 Intake and Output 01/25/20 01/26/20 19:00 07:00 Intake Total 625 ml Output Total 1200 ml Balance -575 ml Intake Oral 120 ml IV Total 505 ml Output Urine Total 1200 ml # Voids 3 Labs Test 01/25/20 09:50 01/26/20 05:45 White Blood Count 11.4 K/UL (4.8-10.8) 12.8 K/UL (4.8-10.8) Red Blood Count 4.53 M/UL (4.20-5.40) 4.35 M/UL (4.20-5.40) Hemoglobin 8.8 G/DL (12.0-16.0) 8.6 G/DL (12.0-16.0) Hematocrit 28.9 % (37.0-47.0) 29.2 % (37.0-47.0) Mean Corpuscular Volume 64 FL (80-99) 67 FL (80-99) Mean Corpuscular Hemoglobin 19.5 PG (27.0-31.0) 19.8 PG (27.0-31.0) Mean Corpuscular Hemoglobin Concent 30.5 G/DL (32.0-36.0) 29.5 G/DL (32.0-36.0) Red Cell Distribution Width 23.3 % (11.6-14.8) 30.1 % (11.6-14.8) Platelet Count 292 K/UL (150-450) 306 K/UL (150-450) Mean Platelet Volume 7.0 FL (6.5-10.1) 7.9 FL (6.5-10.1) Neutrophils (%) (Auto) % (45.0-75.0) % (45.0-75.0) Lymphocytes (%) (Auto) % (20.0-45.0) % (20.0-45.0) Monocytes (%) (Auto) % (1.0-10.0) % (1.0-10.0) Eosinophils (%) (Auto) % (0.0-3.0) % (0.0-3.0) Basophils (%) (Auto) % (0.0-2.0) % (0.0-2.0) Differential Total Cells Counted 100 100 Neutrophils % (Manual) 74 % (45-75) 89 % (45-75) Lymphocytes % (Manual) 18 % (20-45) 7 % (20-45) Monocytes % (Manual) 8 % (1-10) 4 % (1-10) Eosinophils % (Manual) 0 % (0-3) 0 % (0-3) Basophils % (Manual) 0 % (0-2) 0 % (0-2) Band Neutrophils 0 % (0-8) 0 % (0-8) Platelet Estimate Adequate Adequate Platelet Morphology Normal Normal Polychromasia 2+ Anisocytosis 3+ 4+ Microcytosis 2+ 4+ Hypochromasia 2+ Sodium Level 139 MMOL/L (136-145) Potassium Level 3.7 MMOL/L (3.5-5.1) Chloride Level 104 MMOL/L (98-107) Carbon Dioxide Level 27 MMOL/L (21-32) Anion Gap 8 mmol/L (5-15) Blood Urea Nitrogen 9 mg/dL (7-18) Creatinine 0.7 MG/DL (0.55-1.30) Estimat Glomerular Filtration Rate > 60 mL/min (>60) Glucose Level 138 MG/DL (74-106) Calcium Level 7.3 MG/DL (8.5-10.1) Phosphorus Level 4.2 MG/DL (2.5-4.9) Magnesium Level 2.0 MG/DL (1.8-2.4) Total Bilirubin 0.3 MG/DL (0.2-1.0) Aspartate Amino Transf (AST/SGOT) 30 U/L (15-37) Alanine Aminotransferase (ALT/SGPT) 23 U/L (12-78) Alkaline Phosphatase 78 U/L (46-116) C-Reactive Protein, Quantitative 16.3 mg/dL (0.00-0.90) Total Protein 6.2 G/DL (6.4-8.2) Albumin 2.3 G/DL (3.4-5.0) Globulin 3.9 g/dL Albumin/Globulin Ratio 0.6 (1.0-2.7) Height (Feet): 5 Height (Inches): 1.00 Weight (Pounds): 155 Objective Physical Exam: Vitals: reviewed General: NAD HEENT: nc, at Neck: supple Chest: clear breath sounds bilaterally, nrb++ Cardiovascular: RRR, no s3, s4 Abdomen: soft, nontender, nd Extremities: no cce, normal range of motion Neuro: alert and oriented Eddie Pascual MD Jan 26, 2020 11:03
--- NOTE | 2020-01-26 11:31 | Nephrology Progress Note ---
Assessment/Plan Problem List: (1) Hypokalemia (2) Anemia Assessment: Iron deficiency (3) Suspected COVID-19 virus infection Assessment Hypokalemia, likely depletional Severe anemia, low iron Suspected COVID-19 infection Elevated inflammatory markers Plan Lab reviewed Stable from renal standpoint to view Will monitor renal parameters and electrolytes. Continue per consultants. On Remdesivir and Decadron Change hypotonic solution to isotonic solution Potassium supplements IV iron Patient also transfused Continue per consultants Per orders Subjective ROS Limited/Unobtainable: No Constitutional: Reports: malaise Objective Objective Last 24 Hour Vital Signs Date Time Temp Pulse Resp B/P (MAP) Pulse Ox O2 Delivery O2 Flow Rate FiO2 01/26/20 09:00 Simple Mask 8.0 01/26/20 08:00 68 01/26/20 08:00 97.9 71 20 108/90 (96) 94 01/26/20 04:00 97.9 61 18 112/57 (75) 93 01/26/20 04:00 56 01/26/20 00:00 68 01/26/20 00:00 97.4 76 20 115/70 (85) 94 01/25/20 21:00 Simple Mask 8.0 01/25/20 20:00 76 01/25/20 20:00 97.6 66 20 115/56 (75) 95 01/25/20 19:08 97 Simple Mask 8.0 60 01/25/20 16:00 98.1 78 18 122/59 (80) 98 01/25/20 16:00 67 01/25/20 15:09 Simple Mask 8.0 01/25/20 12:09 96.7 65 19 140/59 (86) 98 01/25/20 12:00 68 Intake and Output 01/25/20 01/26/20 19:00 07:00 Intake Total 625 ml Output Total 1200 ml Balance -575 ml Intake Oral 120 ml IV Total 505 ml Output Urine Total 1200 ml # Voids 3 Laboratory Tests 01/26/20 05:45: White Blood Count 12.8H, Red Blood Count 4.35, Hemoglobin 8.6L, Hematocrit 29.2L , Mean Corpuscular Volume 67L, Mean Corpuscular Hemoglobin 19.8L, Mean Corpuscular Hemoglobin Concent 29.5L, Red Cell Distribution Width 30.1H, Platelet Count 306, Mean Platelet Volume 7.9, Neutrophils (%) (Auto) , Lymphocytes (%) (Auto) , Monocytes (%) (Auto) , Eosinophils (%) (Auto) , Basophils (%) (Auto) , Differential Total Cells Counted 100, Neutrophils % ( Manual) 89H, Lymphocytes % (Manual) 7L, Monocytes % (Manual) 4, Eosinophils % ( Manual) 0, Basophils % (Manual) 0, Band Neutrophils 0, Platelet Estimate Adequate, Platelet Morphology Normal, Hypochromasia 2+, Anisocytosis 4+, Microcytosis 4+, Sodium Level 139, Potassium Level 3.7, Chloride Level 104, Carbon Dioxide Level 27, Anion Gap 8, Blood Urea Nitrogen 9, Creatinine 0.7, Estimat Glomerular Filtration Rate > 60, Glucose Level 138H, Calcium Level 7.3L , Phosphorus Level 4.2, Magnesium Level 2.0, Total Bilirubin 0.3, Aspartate Amino Transf (AST/SGOT) 30, Alanine Aminotransferase (ALT/SGPT) 23, Alkaline Phosphatase 78, C-Reactive Protein, Quantitative 16.3H, Total Protein 6.2L, Albumin 2.3L, Globulin 3.9, Albumin/Globulin Ratio 0.6L Height (Feet): 5 Height (Inches): 1.00 Weight (Pounds): 155 General Appearance: no apparent distress Objective No change Kristian Barry MD Jan 26, 2020 11:31
--- NOTE | 2020-01-26 11:32 | Pulmonology Progress Note ---
Subjective ROS Limited/Unobtainable: No Interval Events: Now on 8L/min simple face mask Constitutional: Denies: fever, chills HEENT: Repors: no symptoms Respiratory: Reports: no symptoms Cardiovascular: Reports: no symptoms Gastrointestinal/Abdominal: Denies: nausea, vomiting, diarrhea Genitourinary: Reports: no symptoms Musculoskeletal: Denies: pain Allergies: Coded Allergies: No Known Allergies (Unverified , 10/19/15) All Systems: reviewed and negative except above Objective Last 24 Hour Vital Signs Date Time Temp Pulse Resp B/P (MAP) Pulse Ox O2 Delivery O2 Flow Rate FiO2 01/26/20 09:00 Simple Mask 8.0 01/26/20 08:00 68 01/26/20 08:00 97.9 71 20 108/90 (96) 94 01/26/20 04:00 97.9 61 18 112/57 (75) 93 01/26/20 04:00 56 01/26/20 00:00 68 01/26/20 00:00 97.4 76 20 115/70 (85) 94 01/25/20 21:00 Simple Mask 8.0 01/25/20 20:00 76 01/25/20 20:00 97.6 66 20 115/56 (75) 95 01/25/20 19:08 97 Simple Mask 8.0 60 01/25/20 16:00 98.1 78 18 122/59 (80) 98 01/25/20 16:00 67 01/25/20 15:09 Simple Mask 8.0 01/25/20 12:09 96.7 65 19 140/59 (86) 98 01/25/20 12:00 68 Intake and Output 01/25/20 01/26/20 19:00 07:00 Intake Total 625 ml Output Total 1200 ml Balance -575 ml Intake Oral 120 ml IV Total 505 ml Output Urine Total 1200 ml # Voids 3 General Appearance: no acute distress HEENT: normocephalic Respiratory: chest wall non-tender, lungs clear Cardiovascular: normal peripheral pulses Abdomen: normal bowel sounds, soft, non tender Extremities: no cyanosis, no clubbing, no edema Laboratory Tests 01/26/20 05:45: White Blood Count 12.8H, Red Blood Count 4.35, Hemoglobin 8.6L, Hematocrit 29.2L , Mean Corpuscular Volume 67L, Mean Corpuscular Hemoglobin 19.8L, Mean Corpuscular Hemoglobin Concent 29.5L, Red Cell Distribution Width 30.1H, Platelet Count 306, Mean Platelet Volume 7.9, Neutrophils (%) (Auto) , Lymphocytes (%) (Auto) , Monocytes (%) (Auto) , Eosinophils (%) (Auto) , Basophils (%) (Auto) , Differential Total Cells Counted 100, Neutrophils % ( Manual) 89H, Lymphocytes % (Manual) 7L, Monocytes % (Manual) 4, Eosinophils % ( Manual) 0, Basophils % (Manual) 0, Band Neutrophils 0, Platelet Estimate Adequate, Platelet Morphology Normal, Hypochromasia 2+, Anisocytosis 4+, Microcytosis 4+, Sodium Level 139, Potassium Level 3.7, Chloride Level 104, Carbon Dioxide Level 27, Anion Gap 8, Blood Urea Nitrogen 9, Creatinine 0.7, Estimat Glomerular Filtration Rate > 60, Glucose Level 138H, Calcium Level 7.3L , Phosphorus Level 4.2, Magnesium Level 2.0, Total Bilirubin 0.3, Aspartate Amino Transf (AST/SGOT) 30, Alanine Aminotransferase (ALT/SGPT) 23, Alkaline Phosphatase 78, C-Reactive Protein, Quantitative 16.3H, Total Protein 6.2L, Albumin 2.3L, Globulin 3.9, Albumin/Globulin Ratio 0.6L Current Medications Medications (Trade) Dose Ordered Sig/Bhargav Route PRN Reason Start Time Stop Time Status Last Admin Dose Admin Acetaminophen (Tylenol) 650 mg Q6H PRN ORAL Temp >100.5 01/22/20 19:00 02/17/20 18:59 01/23/20 02:07 Acetaminophen (Tylenol) 650 mg Q6H PRN ORAL Mild Pain (Pain Scale 1-3) 01/22/20 19:00 02/21/20 18:59 Albuterol Sulfate (Proventil MDI) 2 puff Q4H PRN INH Shortness of Breath 01/23/20 13:30 04/22/20 13:29 Dexamethasone (Decadron) 6 mg Q24H ORAL 01/23/20 11:00 01/28/20 12:00 01/25/20 11:38 Dextrose/Sodium Chloride 1,000 ml @ 50 mls/hr Q20H IV 01/22/20 19:00 02/21/20 18:59 01/26/20 02:48 Enoxaparin Sodium (Lovenox) 70 mg EVERY 12 HOURS SUBQ 01/23/20 21:00 04/22/20 20:59 01/26/20 08:13 Guaifenesin/ Codeine Phosphate (Robitussin with codeine) 5 ml Q6H PRN ORAL For Cough 01/22/20 19:00 02/17/20 18:59 01/25/20 21:11 Ondansetron HCl (Zofran) 4 mg Q6H PRN IVP Nausea & Vomiting 01/22/20 19:00 02/17/20 18:59 Polyethylene Glycol (Miralax) 17 gm DAILYPRN PRN ORAL Constipation 01/22/20 19:00 02/21/20 18:59 Assessment/Plan Assessment/Plan IMPRESSION: 1. Acute hypoxemic respiratory failutre 2. COVID-19 pneumonia. DISCUSSION: Continue IV fluids and antibiotics. Seen by ID. Continue oxygen and pulmonary hygiene. I will follow carefully. S/p remdesivir and dexamethasone O2 requirements improving Will obtain CXR Jerald Bess Omar Syed MD Jan 26, 2020 11:32
[2020-01-26 12:00] VITALS: BP 110/51
[2020-01-26 16:00] VITALS: BP 130/63
--- NOTE | 2020-01-26 19:28 | NUR ---
HAND-OFF: Report given to PRAVEEN Amaya.
--- NOTE | 2020-01-26 19:28 | NUR ---
NURSE NOTES: Received hand-off report from PRAVEEN Carlisle. Patient breathing is unlabored and even. Bed in lowest and locked position, bed alarm activated, bed rails 2x up. Patient in stable condition. Call light within reach. Patient alert and oriented x4.
[2020-01-26 20:00] VITALS: BP 112/46
[2020-01-26] MEDS: guaiFENesin w/Codeine 5ml Liq ud ORAL PRN (20:16)
[2020-01-27] VITALS: BP 110/62
[2020-01-27 04:00] VITALS: BP 104/49
--- NOTE | 2020-01-27 05:10 | NUR ---
NURSE NOTES: Patient in stable condition, alert and oriented x4, dorsalis pedal pulses +2 bilaterally. Patient states pain level at zero. campus monitor in place, bed in lowest and locked position, bed call light within reach, bed rails up 2x.
--- NOTE | 2020-01-27 07:39 | NUR ---
HAND-OFF: Report given to PRAVEEN Nettles. Patient in stable condition. Endorsed plan of care.
--- NOTE | 2020-01-27 07:39 | NUR ---
NURSE NOTES: Patient stable AOx4 with no complaints of pain and no s/sx of distress. Using bedside commode at this time. Simple mask on. Side rails upx2, call light within reach, bed low and locked. Will continue monitor.
[2020-01-27 08:00] VITALS: BP 141/55
[2020-01-27 08:07] LABS: HEMATOCRIT 29.7 % (37.0-47.0); MEAN CORPUSCULAR VOLUME 69 FL (80-99); PLATELET COUNT 305 K/UL (150-450); RED BLOOD COUNT 4.31 M/UL (4.20-5.40); RED CELL DISTRIBUTION WIDTH 32.4 % (11.6-14.8); WHITE BLOOD COUNT 15.1 K/UL (4.8-10.8)
--- NOTE | 2020-01-27 08:13 | Diagnostic Imaging Report ---
EXAM: XR Chest, 1 View CLINICAL HISTORY: ABN CHST TECHNIQUE: Frontal view of the chest. COMPARISON: 01/21/20 FINDINGS: Lungs: There is been slight interval worsening of mild to moderate patchy right lung pneumonia with unchanged moderate diffuse left lung pneumonia. Pleural space: Unremarkable. No pneumothorax. Heart: Unremarkable. No cardiomegaly. Mediastinum: Unremarkable. Bones/joints: Unremarkable. IMPRESSION: There is been slight interval worsening of mild to moderate patchy right lung pneumonia with unchanged moderate diffuse left lung pneumonia.
[2020-01-27] MEDS ORDERED: D5NS 1000ml IV ONE (08:23)
[2020-01-27 08:24] LABS: ANION GAP 11 mmol/L (5-15); BLOOD UREA NITROGEN 11 mg/dL (7-18); CALCIUM 7.3 MG/DL (8.5-10.1); CARBON DIOXIDE 23 MMOL/L (21-32); CHLORIDE 105 MMOL/L (98-107); CREATININE 0.6 MG/DL (0.55-1.30); POTASSIUM 4.6 MMOL/L (3.5-5.1); SODIUM 139 MMOL/L (136-145)
--- NOTE | 2020-01-27 08:57 | General Progress Note ---
Assessment/Plan Problem List: (1) Malnutrition ICD Codes: E46 - Unspecified protein-calorie malnutrition SNOMED: 51628417 (2) Suspected COVID-19 virus infection ICD Codes: Z20.828 - Contact with and (suspected) exposure to other viral communicable diseases SNOMED: 414669392 (3) Pneumonia ICD Codes: J18.9 - Pneumonia, unspecified organism SNOMED: 278853637 Qualifiers: Qualified Codes: J18.9 - Pneumonia, unspecified organism (4) Anemia ICD Codes: D64.9 - Anemia, unspecified SNOMED: 894616378 Qualifiers: Qualified Codes: D64.9 - Anemia, unspecified Status: progressing, unchanged Assessment/Plan: abx pt diet cbc bmp am Subjective Constitutional: Reports: weakness Allergies: Coded Allergies: No Known Allergies (Unverified , 10/19/15) All Systems: reviewed and negative except above Subjective sleepy calm in bed Objective Last 24 Hour Vital Signs Date Time Temp Pulse Resp B/P (MAP) Pulse Ox O2 Delivery O2 Flow Rate FiO2 01/27/20 04:00 96.4 57 16 104/49 (67) 96 01/27/20 04:00 55 01/27/20 00:00 96.5 57 20 110/62 (78) 96 01/27/20 00:00 57 01/26/20 21:00 Simple Mask 8.0 01/26/20 20:00 75 01/26/20 20:00 96.0 75 19 112/46 (68) 97 01/26/20 16:00 98.0 70 20 130/63 (85) 95 01/26/20 16:00 63 01/26/20 12:00 97.9 77 20 110/51 (70) 94 01/26/20 12:00 77 01/26/20 09:00 Simple Mask 8.0 Intake and Output 01/26/20 01/27/20 19:00 07:00 Intake Total 1530 ml 150 ml Output Total 600 ml Balance 930 ml 150 ml Intake Oral 980 ml 150 ml IV Total 550 ml Output Urine Total 600 ml # Voids 6 2 # Bowel Movements 2 Laboratory Tests 01/27/20 04:17: Stool Occult Blood [Pending] 01/27/20 06:20: White Blood Count 15.1H, Red Blood Count 4.31, Hemoglobin 9.0L, Hematocrit 29.7L , Mean Corpuscular Volume 69L, Mean Corpuscular Hemoglobin 20.8L, Mean Corpuscular Hemoglobin Concent 30.2L, Red Cell Distribution Width 32.4H, Platelet Count 305, Mean Platelet Volume 8.1, Neutrophils (%) (Auto) , Lymphocytes (%) (Auto) , Monocytes (%) (Auto) , Eosinophils (%) (Auto) , Basophils (%) (Auto) , Neutrophils % (Manual) [Pending], Lymphocytes % (Manual) [Pending], Platelet Estimate [Pending], Platelet Morphology [Pending], D-Dimer 3.25H, Sodium Level 139, Potassium Level 4.6, Chloride Level 105, Carbon Dioxide Level 23, Anion Gap 11, Blood Urea Nitrogen 11, Creatinine 0.6, Estimat Glomerular Filtration Rate > 60, Glucose Level 123H, Calcium Level 7.3L Height (Feet): 5 Height (Inches): 1.00 Weight (Pounds): 155 General Appearance: lethargic EENT: normal ENT inspection Neck: normal alignment Cardiovascular: normal rate, regular rhythm Respiratory/Chest: no respiratory distress, no accessory muscle use Extremities: normal inspection Skin: normal pigmentation Louis Irvin DO Jan 27, 2020 08:57
[2020-01-27] MEDS: Enoxaparin 80mg Inj SUBQ SCH ×2 (09:16→20:53)
--- NOTE | 2020-01-27 09:45 | NUR ---
CASE MANAGEMENT:REVIEW 01/27/20 SI: COVID PNA. ANEMIA T 96.4 HR 57 RR 16 B/P 104/49 SATS 96% ON 8L/SIMPLE MASK LABS: WBC 15.1 GLU 123 CA 7.3 DDIMER 3.25 STOOL OB (-) IS: IVF@50 ML/HR LOVENOX SUBQ Q12H DECADRON PO Q24H : TELEMETRY DCP: PATIENT IS FROM HOME
--- NOTE | 2020-01-27 11:32 | Pulmonology Progress Note ---
Subjective ROS Limited/Unobtainable: No Interval Events: Now on 8L/min simple face mask Constitutional: Denies: fever, chills HEENT: Repors: no symptoms Respiratory: Reports: no symptoms Cardiovascular: Reports: no symptoms Gastrointestinal/Abdominal: Denies: nausea, vomiting, diarrhea Genitourinary: Reports: no symptoms Musculoskeletal: Denies: pain Allergies: Coded Allergies: No Known Allergies (Unverified , 10/19/15) All Systems: reviewed and negative except above Objective Last 24 Hour Vital Signs Date Time Temp Pulse Resp B/P (MAP) Pulse Ox O2 Delivery O2 Flow Rate FiO2 01/27/20 09:00 Simple Mask 8.0 01/27/20 08:00 97.7 84 18 141/55 (83) 96 01/27/20 04:00 96.4 57 16 104/49 (67) 96 01/27/20 04:00 55 01/27/20 00:00 96.5 57 20 110/62 (78) 96 01/27/20 00:00 57 01/26/20 21:00 Simple Mask 8.0 01/26/20 20:00 75 01/26/20 20:00 96.0 75 19 112/46 (68) 97 01/26/20 16:00 98.0 70 20 130/63 (85) 95 01/26/20 16:00 63 01/26/20 12:00 97.9 77 20 110/51 (70) 94 01/26/20 12:00 77 Intake and Output 01/26/20 01/27/20 19:00 07:00 Intake Total 1530 ml 150 ml Output Total 600 ml Balance 930 ml 150 ml Intake Oral 980 ml 150 ml IV Total 550 ml Output Urine Total 600 ml # Voids 6 2 # Bowel Movements 2 General Appearance: no acute distress HEENT: normocephalic Respiratory: chest wall non-tender, lungs clear Cardiovascular: normal peripheral pulses Abdomen: normal bowel sounds, soft, non tender Extremities: no cyanosis, no clubbing, no edema Laboratory Tests 01/27/20 04:17: Stool Occult Blood Negative 01/27/20 06:20: White Blood Count 15.1H, Red Blood Count 4.31, Hemoglobin 9.0L, Hematocrit 29.7L , Mean Corpuscular Volume 69L, Mean Corpuscular Hemoglobin 20.8L, Mean Corpuscular Hemoglobin Concent 30.2L, Red Cell Distribution Width 32.4H, Platelet Count 305, Mean Platelet Volume 8.1, Neutrophils (%) (Auto) , Lymphocytes (%) (Auto) , Monocytes (%) (Auto) , Eosinophils (%) (Auto) , Basophils (%) (Auto) , Differential Total Cells Counted 100, Neutrophils % ( Manual) 88H, Lymphocytes % (Manual) 8L, Monocytes % (Manual) 4, Eosinophils % ( Manual) 0, Basophils % (Manual) 0, Band Neutrophils 0, Platelet Estimate Adequate, Platelet Morphology Normal, Polychromasia 1+, Hypochromasia 1+, Anisocytosis 3+, Microcytosis 2+, D-Dimer 3.25H, Sodium Level 139, Potassium Level 4.6, Chloride Level 105, Carbon Dioxide Level 23, Anion Gap 11, Blood Urea Nitrogen 11, Creatinine 0.6, Estimat Glomerular Filtration Rate > 60, Glucose Level 123H, Calcium Level 7.3L Current Medications Medications (Trade) Dose Ordered Sig/Bhargav Route PRN Reason Start Time Stop Time Status Last Admin Dose Admin Acetaminophen (Tylenol) 650 mg Q6H PRN ORAL Temp >100.5 01/22/20 19:00 02/17/20 18:59 01/23/20 02:07 Acetaminophen (Tylenol) 650 mg Q6H PRN ORAL Mild Pain (Pain Scale 1-3) 01/22/20 19:00 02/21/20 18:59 Albuterol Sulfate (Proventil MDI) 2 puff Q4H PRN INH Shortness of Breath 01/23/20 13:30 04/22/20 13:29 Dexamethasone (Decadron) 6 mg Q24H ORAL 01/23/20 11:00 01/28/20 12:00 01/26/20 11:38 Dextrose/Sodium Chloride 1,000 ml @ 50 mls/hr Q20H IV 01/22/20 19:00 02/21/20 18:59 01/26/20 23:33 Enoxaparin Sodium (Lovenox) 70 mg EVERY 12 HOURS SUBQ 01/23/20 21:00 04/22/20 20:59 01/27/20 09:16 Guaifenesin/ Codeine Phosphate (Robitussin with codeine) 5 ml Q6H PRN ORAL For Cough 01/22/20 19:00 02/17/20 18:59 01/26/20 20:16 Ondansetron HCl (Zofran) 4 mg Q6H PRN IVP Nausea & Vomiting 01/22/20 19:00 02/17/20 18:59 Polyethylene Glycol (Miralax) 17 gm DAILYPRN PRN ORAL Constipation 01/22/20 19:00 02/21/20 18:59 01/26/20 18:44 Assessment/Plan Assessment/Plan IMPRESSION: 1. Acute hypoxemic respiratory failutre 2. COVID-19 pneumonia. DISCUSSION: Continue IV fluids and antibiotics. Seen by ID. Continue oxygen and pulmonary hygiene. I will follow carefully. S/p remdesivir and dexamethasone O2 requirements improving CXR 01/27/20 better c/w 01/21/20 Jerald Bess Omar Syed MD Jan 27, 2020 11:32
[2020-01-27 12:00] VITALS: BP 110/46
--- NOTE | 2020-01-27 12:00 | NUR ---
NURSE NOTES: Patient took of simple mask saturating 82%. Due to mask being uncomfortable to patient, NC attempted. O2 sat 89% on 4L NC. Patient instructed that she needs to stay on simple mask but can switch to NC when she is eating. Patient verbalized understanding.
[2020-01-27 16:00] VITALS: BP 107/53
--- NOTE | 2020-01-27 19:15 | NUR ---
NURSE NOTES: Report received from PRAVEEN Rich. Patient awake, alert, and oriented. On 8L via simple face mask, saturating well. Patient able to move around her bed independently. IV site on LFA #20g, D5NS running at 50ml/hr. No complaints of pain or discomfort. No SOB or signs of acute distress. Call light placed within reach. Bed in lowest position, brakes engaged. Bed rails raised x2. Will continue to monitor.
--- NOTE | 2020-01-27 19:32 | NUR ---
HAND-OFF: Report given to Robinson MORTON. Patient stable. Plan of care endorsed.
[2020-01-27 20:00] VITALS: BP 115/61
[2020-01-28] VITALS: BP 121/61
[2020-01-28 04:00] VITALS: BP 113/66
[2020-01-28] MEDS: guaiFENesin w/Codeine 5ml Liq ud ORAL PRN ×2 (04:47→11:06)
[2020-01-28 07:02] LABS: HEMATOCRIT 33.2 % (37.0-47.0); HEMOGLOBIN 9.7 G/DL (12.0-16.0); MEAN CORPUSCULAR VOLUME 71 FL (80-99); PLATELET COUNT 287 K/UL (150-450); RED BLOOD COUNT 4.68 M/UL (4.20-5.40); WHITE BLOOD COUNT 14.5 K/UL (4.8-10.8)
[2020-01-28 07:17] LABS: ANION GAP 10 mmol/L (5-15); BLOOD UREA NITROGEN 9 mg/dL (7-18); CALCIUM 7.8 MG/DL (8.5-10.1); CARBON DIOXIDE 26 MMOL/L (21-32); CHLORIDE 102 MMOL/L (98-107); CREATININE 0.5 MG/DL (0.55-1.30); POTASSIUM 4.1 MMOL/L (3.5-5.1); SODIUM 138 MMOL/L (136-145)
--- NOTE | 2020-01-28 07:21 | NUR ---
HAND-OFF: Report given to PRAVEEN Rinaldi. Patient stable. Plan of care endorsed.
--- NOTE | 2020-01-28 07:23 | NUR ---
NURSE NOTES: Received report from Robinson/RN, Patient is awake, alert and oriented x4, Eating breakfast in bed, On 8L simple mask. No distress/SOB noted at this time. Able to make needs known. IV on Left FA, patent and intact, Saline locked. Bed in lowest position and locked, Call light within reach, Encouraged to use call light when needed. Side rails up x2. Will continue plan of care.
[2020-01-28 08:00] VITALS: BP 116/56
[2020-01-28] MEDS: Enoxaparin 80mg Inj SUBQ SCH ×2 (08:35→21:21)
--- NOTE | 2020-01-28 08:41 | General Progress Note ---
Assessment/Plan Problem List: (1) Malnutrition ICD Codes: E46 - Unspecified protein-calorie malnutrition SNOMED: 16586272 (2) Suspected COVID-19 virus infection ICD Codes: Z20.828 - Contact with and (suspected) exposure to other viral communicable diseases SNOMED: 562329820 (3) Pneumonia ICD Codes: J18.9 - Pneumonia, unspecified organism SNOMED: 691525149 Qualifiers: Qualified Codes: J18.9 - Pneumonia, unspecified organism (4) Anemia ICD Codes: D64.9 - Anemia, unspecified SNOMED: 035576692 Qualifiers: Qualified Codes: D64.9 - Anemia, unspecified Status: progressing, unchanged Assessment/Plan: abx pt diet cbc bmp am Subjective Constitutional: Reports: weakness Allergies: Coded Allergies: No Known Allergies (Unverified , 10/19/15) All Systems: reviewed and negative except above Subjective sleepy calm in bed Objective Last 24 Hour Vital Signs Date Time Temp Pulse Resp B/P (MAP) Pulse Ox O2 Delivery O2 Flow Rate FiO2 01/28/20 04:00 47 01/28/20 04:00 97.3 66 19 113/66 (82) 96 01/28/20 00:00 95 01/28/20 00:00 97.6 90 19 121/61 (81) 97 01/27/20 21:38 93 Simple Mask 8.0 60 01/27/20 21:00 Simple Mask 8.0 01/27/20 20:00 98.0 85 19 115/61 (79) 97 01/27/20 20:00 85 01/27/20 16:00 97.7 75 18 107/53 (71) 97 01/27/20 16:00 86 01/27/20 12:00 103 01/27/20 12:00 97.9 77 18 110/46 (67) 92 01/27/20 09:00 Simple Mask 8.0 Intake and Output 01/27/20 01/28/20 19:00 07:00 Intake Total 740 ml 200 ml Output Total 200 ml Balance 540 ml 200 ml Intake Oral 740 ml Other 200 ml Output Urine Total 200 ml # Voids 2 2 Laboratory Tests 01/28/20 04:30: White Blood Count 14.5H, Red Blood Count 4.68, Hemoglobin 9.7L, Hematocrit 33.2L , Mean Corpuscular Volume 71L, Mean Corpuscular Hemoglobin 20.6L, Mean Corpuscular Hemoglobin Concent 29.1L, Red Cell Distribution Width 34.0H, Platelet Count 287, Mean Platelet Volume 6.7, Neutrophils (%) (Auto) , Lymphocytes (%) (Auto) , Monocytes (%) (Auto) , Eosinophils (%) (Auto) , Basophils (%) (Auto) , Neutrophils % (Manual) [Pending], Lymphocytes % (Manual) [Pending], Platelet Estimate [Pending], Platelet Morphology [Pending], Sodium Level 138, Potassium Level 4.1, Chloride Level 102, Carbon Dioxide Level 26, Anion Gap 10, Blood Urea Nitrogen 9, Creatinine 0.5L, Estimat Glomerular Filtration Rate > 60, Glucose Level 151H, Calcium Level 7.8L Height (Feet): 5 Height (Inches): 1.00 Weight (Pounds): 155 General Appearance: lethargic EENT: normal ENT inspection Neck: normal alignment Cardiovascular: normal rate, regular rhythm Respiratory/Chest: no respiratory distress, no accessory muscle use Extremities: normal inspection Skin: normal pigmentation Louis Irvin DO Jan 28, 2020 08:41
--- NOTE | 2020-01-28 10:03 | Pulmonology Progress Note ---
Subjective ROS Limited/Unobtainable: No Interval Events: Now on 8L/min simple face mask Constitutional: Denies: fever, chills HEENT: Repors: no symptoms Respiratory: Reports: no symptoms Cardiovascular: Reports: no symptoms Gastrointestinal/Abdominal: Denies: nausea, vomiting, diarrhea Genitourinary: Reports: no symptoms Musculoskeletal: Denies: pain Allergies: Coded Allergies: No Known Allergies (Unverified , 10/19/15) All Systems: reviewed and negative except above Objective Last 24 Hour Vital Signs Date Time Temp Pulse Resp B/P (MAP) Pulse Ox O2 Delivery O2 Flow Rate FiO2 01/28/20 07:00 96 Simple Mask 8.0 60 01/28/20 04:00 47 01/28/20 04:00 97.3 66 19 113/66 (82) 96 01/28/20 00:00 95 01/28/20 00:00 97.6 90 19 121/61 (81) 97 01/27/20 21:38 93 Simple Mask 8.0 60 01/27/20 21:00 Simple Mask 8.0 01/27/20 20:00 98.0 85 19 115/61 (79) 97 01/27/20 20:00 85 01/27/20 16:00 97.7 75 18 107/53 (71) 97 01/27/20 16:00 86 01/27/20 12:00 103 01/27/20 12:00 97.9 77 18 110/46 (67) 92 Intake and Output 01/27/20 01/28/20 19:00 07:00 Intake Total 740 ml 200 ml Output Total 200 ml Balance 540 ml 200 ml Intake Oral 740 ml Other 200 ml Output Urine Total 200 ml # Voids 2 2 General Appearance: no acute distress HEENT: normocephalic Respiratory: chest wall non-tender, lungs clear Cardiovascular: normal peripheral pulses Abdomen: normal bowel sounds, soft, non tender Extremities: no cyanosis, no clubbing, no edema Laboratory Tests 01/28/20 04:30: White Blood Count 14.5H, Red Blood Count 4.68, Hemoglobin 9.7L, Hematocrit 33.2L , Mean Corpuscular Volume 71L, Mean Corpuscular Hemoglobin 20.6L, Mean Corpuscular Hemoglobin Concent 29.1L, Red Cell Distribution Width 34.0H, Platelet Count 287, Mean Platelet Volume 6.7, Neutrophils (%) (Auto) , Lymphocytes (%) (Auto) , Monocytes (%) (Auto) , Eosinophils (%) (Auto) , Basophils (%) (Auto) , Differential Total Cells Counted 100, Neutrophils % ( Manual) 90H, Lymphocytes % (Manual) 4L, Monocytes % (Manual) 6, Eosinophils % ( Manual) 0, Basophils % (Manual) 0, Band Neutrophils 0, Platelet Estimate Adequate, Platelet Morphology Normal, Hypochromasia 1+, Anisocytosis 3+, Microcytosis 1+, Sodium Level 138, Potassium Level 4.1, Chloride Level 102, Carbon Dioxide Level 26, Anion Gap 10, Blood Urea Nitrogen 9, Creatinine 0.5L, Estimat Glomerular Filtration Rate > 60, Glucose Level 151H, Calcium Level 7.8L Current Medications Medications (Trade) Dose Ordered Sig/Bhargav Route PRN Reason Start Time Stop Time Status Last Admin Dose Admin Acetaminophen (Tylenol) 650 mg Q6H PRN ORAL Temp >100.5 01/22/20 19:00 02/17/20 18:59 01/23/20 02:07 Acetaminophen (Tylenol) 650 mg Q6H PRN ORAL Mild Pain (Pain Scale 1-3) 01/22/20 19:00 02/21/20 18:59 Albuterol Sulfate (Proventil MDI) 2 puff Q4H PRN INH Shortness of Breath 01/23/20 13:30 04/22/20 13:29 Dexamethasone (Decadron) 6 mg Q24H ORAL 01/23/20 11:00 01/28/20 12:00 01/27/20 11:32 Enoxaparin Sodium (Lovenox) 70 mg EVERY 12 HOURS SUBQ 01/23/20 21:00 04/22/20 20:59 01/28/20 08:35 Guaifenesin/ Codeine Phosphate (Robitussin with codeine) 5 ml Q6H PRN ORAL For Cough 01/22/20 19:00 02/17/20 18:59 01/28/20 04:47 Ondansetron HCl (Zofran) 4 mg Q6H PRN IVP Nausea & Vomiting 01/22/20 19:00 02/17/20 18:59 Polyethylene Glycol (Miralax) 17 gm DAILYPRN PRN ORAL Constipation 01/22/20 19:00 02/21/20 18:59 01/26/20 18:44 Assessment/Plan Assessment/Plan IMPRESSION: 1. Acute hypoxemic respiratory failutre 2. COVID-19 pneumonia. DISCUSSION: Continue IV fluids and antibiotics. Seen by ID. Continue oxygen and pulmonary hygiene. I will follow carefully. S/p remdesivir and dexamethasone O2 requirements improving CXR 01/27/20 better c/w 01/21/20 Jerald Bess Omar Syed MD Jan 28, 2020 10:03
--- NOTE | 2020-01-28 10:40 | NUR ---
CASE MANAGEMENT:REVIEW 01/28/20 SI: COVID PNEUMONIA + . ANEMIA 96.6 51 20 116/56 95% ON 8L/SIMPLE MASK WBC 14.5 H/H 9.7/33.2 BG 151 CA+ 7.8 IS:LOVENOX SUBQ Q12H DECADRON PO Q24H ROBITUSSIN Q6HR/PRN : TELEMETRY DCP: PATIENT IS FROM HOME PLAN: AM LABS
--- NOTE | 2020-01-28 10:47 | NUR ---
*-* INSURANCE *-* UPDATED CLINICALS AND REVIEWS HAVE BEEN FAXED TO: ILANA HENDRICKS P:[phone] F:[phone]
[2020-01-28 12:00] VITALS: BP 108/68
--- NOTE | 2020-01-28 12:45 | NUR ---
RD ASSESSMENT & RECOMMENDATIONS SEE CARE ACTIVITY FOR COMPLETE ASSESSMENT DAILY ESTIMATED NEEDS: Needs based on PNA, 54kg abw 25-30 kcals/kg 8090-8264 total kcals 1-1.3 g protein/kg 54-70 g total protein 25-30 mL/kg 0148-3610 total fluid mLs NUTRITION DIAGNOSIS: Altered nutrition related lab values R/T anemia as evidenced by low hgb (6.6* -> 9.7), s/p PBRC. CURRENT DIET:Regular + Ensure QD w/ dinner PO DIET RECOMMENDATIONS: REGULAR ADDITIONAL RECOMMENDATIONS: * Calibrated bedscale wt or standing wt as able for accurate CBW * Monitor PO intake- variable at this time -> monitor respiratory status, PO tolerance and acceptance on non-rebreather mask at this time-> now simple mask. -> continue Ensure once daily for now * MVI x 1 * Rec accuchecks for elev am blood glucose values (123-151)
--- NOTE | 2020-01-28 14:03 | Infectious Diseases Prog Note ---
Assessment/Plan Assessment/Plan A; 1. Covid19 pneumonia 2. leucocytosis improving 3. anemia 4. Hypoxemia P 1. Finished remdesivir 2. Observe off of antibiotic 3. continue isolation Subjective ROS Limited/Unobtainable: No Respiratory: Reports: no symptoms Cardiovascular: Reports: no symptoms Gastrointestinal/Abdominal: Reports: no symptoms Genitourinary: Reports: no symptoms Allergies: Coded Allergies: No Known Allergies (Unverified , 10/19/15) Objective Last 24 Hour Vital Signs Date Time Temp Pulse Resp B/P (MAP) Pulse Ox O2 Delivery O2 Flow Rate FiO2 01/28/20 12:00 77 01/28/20 12:00 96.6 72 20 108/68 (81) 92 01/28/20 09:00 Simple Mask 8.0 01/28/20 08:00 84 01/28/20 08:00 96.6 51 20 116/56 (76) 95 01/28/20 07:00 96 Simple Mask 8.0 60 01/28/20 04:00 47 01/28/20 04:00 97.3 66 19 113/66 (82) 96 01/28/20 00:00 95 01/28/20 00:00 97.6 90 19 121/61 (81) 97 01/27/20 21:38 93 Simple Mask 8.0 60 01/27/20 21:00 Simple Mask 8.0 01/27/20 20:00 98.0 85 19 115/61 (79) 97 01/27/20 20:00 85 01/27/20 16:00 97.7 75 18 107/53 (71) 97 01/27/20 16:00 86 Height (Feet): 5 Height (Inches): 1.00 Weight (Pounds): 155 General Appearance: no acute distress HEENT: mucous membranes moist Respiratory/Chest: other - oxygen by nasal cannula Cardiovascular: normal rate Abdomen: soft, non tender Neurologic/Psychiatric: alert, oriented x 3, responsive Laboratory Tests Test 01/28/20 04:30 White Blood Count 14.5 K/UL (4.8-10.8) H Red Blood Count 4.68 M/UL (4.20-5.40) Hemoglobin 9.7 G/DL (12.0-16.0) L Hematocrit 33.2 % (37.0-47.0) L Mean Corpuscular Volume 71 FL (80-99) L Mean Corpuscular Hemoglobin 20.6 PG (27.0-31.0) L Mean Corpuscular Hemoglobin Concent 29.1 G/DL (32.0-36.0) L Red Cell Distribution Width 34.0 % (11.6-14.8) H Platelet Count 287 K/UL (150-450) Mean Platelet Volume 6.7 FL (6.5-10.1) Neutrophils (%) (Auto) % (45.0-75.0) Lymphocytes (%) (Auto) % (20.0-45.0) Monocytes (%) (Auto) % (1.0-10.0) Eosinophils (%) (Auto) % (0.0-3.0) Basophils (%) (Auto) % (0.0-2.0) Differential Total Cells Counted 100 Neutrophils % (Manual) 90 % (45-75) H Lymphocytes % (Manual) 4 % (20-45) L Monocytes % (Manual) 6 % (1-10) Eosinophils % (Manual) 0 % (0-3) Basophils % (Manual) 0 % (0-2) Band Neutrophils 0 % (0-8) Platelet Estimate Adequate Platelet Morphology Normal Hypochromasia 1+ Anisocytosis 3+ Microcytosis 1+ Sodium Level 138 MMOL/L (136-145) Potassium Level 4.1 MMOL/L (3.5-5.1) Chloride Level 102 MMOL/L (98-107) Carbon Dioxide Level 26 MMOL/L (21-32) Anion Gap 10 mmol/L (5-15) Blood Urea Nitrogen 9 mg/dL (7-18) Creatinine 0.5 MG/DL (0.55-1.30) L Estimat Glomerular Filtration Rate > 60 mL/min (>60) Glucose Level 151 MG/DL (74-106) H Calcium Level 7.8 MG/DL (8.5-10.1) L Current Medications Medications (Trade) Dose Ordered Sig/Bhargav Route PRN Reason Start Time Stop Time Status Last Admin Dose Admin Acetaminophen (Tylenol) 650 mg Q6H PRN ORAL Temp >100.5 01/22/20 19:00 02/17/20 18:59 01/23/20 02:07 Acetaminophen (Tylenol) 650 mg Q6H PRN ORAL Mild Pain (Pain Scale 1-3) 01/22/20 19:00 02/21/20 18:59 Albuterol Sulfate (Proventil MDI) 2 puff Q4H PRN INH Shortness of Breath 01/23/20 13:30 04/22/20 13:29 Enoxaparin Sodium (Lovenox) 70 mg EVERY 12 HOURS SUBQ 01/23/20 21:00 04/22/20 20:59 01/28/20 08:35 Guaifenesin/ Codeine Phosphate (Robitussin with codeine) 5 ml Q6H PRN ORAL For Cough 01/22/20 19:00 02/17/20 18:59 01/28/20 11:06 Ondansetron HCl (Zofran) 4 mg Q6H PRN IVP Nausea & Vomiting 01/22/20 19:00 02/17/20 18:59 Polyethylene Glycol (Miralax) 17 gm DAILYPRN PRN ORAL Constipation 01/22/20 19:00 02/21/20 18:59 01/26/20 18:44 Yosef Bess MD Jan 28, 2020 14:03
[2020-01-28 16:00] VITALS: BP 117/67
--- NOTE | 2020-01-28 16:33 | Hematology/Onc Progress Note ---
Assessment/Plan Assessment/Plan # Anemia of iron deficiency, unspecified rule out gi bleed --> obtain anemia panel, has been reviewed --> have begun on iv iron and continue x 5 doses --> review if occult blood is + (review this to make sure +). Can consider gi eval --> hgb goal is >7, transfuse as needed --> trend CBC daily to make sure no major acute drop --> no evidence of hemolysis noted --> hgb trend: 8.5->8.6->9.7 --> 01/22 stool ob neg # Leukocytosis/elevated white blood cell count, unspecified likely related to underlying stress reaction, smoking v covid19 infection --> have reviewed peripheral smear and bandemia/neutrophilia noted --> continue antibiotics if they have been started by ID team: cftx --> monitor for resolution --> started on remdesivir --> wbc trend 19-->9-->14.7-->14.5 # Elevated ddimer --> will recheck --> likely covid related --> is on lovenox for now --> 01/20 jaden duplex negative --> trend: 3.25 # Hypokalemia, likely depletional --> per renal, replete # Suspected COVID-19 infection # Elevated inflammatory markers # Dvt ppx with lovenox Appreciate consultaiton and agnes Rn Subjective Allergies: Coded Allergies: No Known Allergies (Unverified , 10/19/15) Subjective 01/20 no events, has been started on iv iron, will recheck ddimer 01/21 jaden duplex negative for dvt, nrb o2, hgb 8.5, no distress 01/22 dry cough+, remdesivir, iv iron, nrb, stool ob pending 01/23 no overnight events, afebrile, bp stable 01/24 no bleeding, hgb is better, remains on iv iron, hgb 8.5 01/25 covid19 pna is better, labs noted, no bleeding, on abx 01/27 tele, stool ob negative, simple mask, no distress Objective Objective Current Medications Medications (Trade) Dose Ordered Sig/Bhargav Route PRN Reason Start Time Stop Time Status Last Admin Dose Admin Acetaminophen (Tylenol) 650 mg Q6H PRN ORAL Temp >100.5 01/22/20 19:00 02/17/20 18:59 01/23/20 02:07 Acetaminophen (Tylenol) 650 mg Q6H PRN ORAL Mild Pain (Pain Scale 1-3) 01/22/20 19:00 02/21/20 18:59 Albuterol Sulfate (Proventil MDI) 2 puff Q4H PRN INH Shortness of Breath 01/23/20 13:30 04/22/20 13:29 Enoxaparin Sodium (Lovenox) 70 mg EVERY 12 HOURS SUBQ 01/23/20 21:00 04/22/20 20:59 01/28/20 08:35 Guaifenesin/ Codeine Phosphate (Robitussin with codeine) 5 ml Q6H PRN ORAL For Cough 01/22/20 19:00 02/17/20 18:59 01/28/20 11:06 Ondansetron HCl (Zofran) 4 mg Q6H PRN IVP Nausea & Vomiting 01/22/20 19:00 02/17/20 18:59 Polyethylene Glycol (Miralax) 17 gm DAILYPRN PRN ORAL Constipation 01/22/20 19:00 02/21/20 18:59 01/26/20 18:44 Last 24 Hour Vital Signs Date Time Temp Pulse Resp B/P (MAP) Pulse Ox O2 Delivery O2 Flow Rate FiO2 01/28/20 14:59 Nasal Cannula 3.0 01/28/20 12:00 77 01/28/20 12:00 96.6 72 20 108/68 (81) 92 01/28/20 09:00 Simple Mask 8.0 01/28/20 08:00 84 01/28/20 08:00 96.6 51 20 116/56 (76) 95 01/28/20 07:00 96 Simple Mask 8.0 60 01/28/20 04:00 47 01/28/20 04:00 97.3 66 19 113/66 (82) 96 01/28/20 00:00 95 01/28/20 00:00 97.6 90 19 121/61 (81) 97 01/27/20 21:38 93 Simple Mask 8.0 60 01/27/20 21:00 Simple Mask 8.0 01/27/20 20:00 98.0 85 19 115/61 (79) 97 01/27/20 20:00 85 01/27/20 16:00 97.7 75 18 107/53 (71) 97 01/27/20 16:00 86 01/27/20 12:00 103 01/27/20 12:00 97.9 77 18 110/46 (67) 92 01/27/20 09:00 Simple Mask 8.0 01/27/20 08:00 97.7 84 18 141/55 (83) 96 01/27/20 08:00 59 01/27/20 04:00 96.4 57 16 104/49 (67) 96 01/27/20 04:00 55 01/27/20 00:00 96.5 57 20 110/62 (78) 96 01/27/20 00:00 57 01/26/20 21:00 Simple Mask 8.0 01/26/20 20:00 75 01/26/20 20:00 96.0 75 19 112/46 (68) 97 Intake and Output 01/27/20 01/28/20 19:00 07:00 Intake Total 740 ml 200 ml Output Total 200 ml Balance 540 ml 200 ml Intake Oral 740 ml Other 200 ml Output Urine Total 200 ml # Voids 2 2 Labs Test 01/26/20 05:45 01/27/20 04:17 01/27/20 06:20 01/28/20 04:30 White Blood Count 12.8 K/UL (4.8-10.8) 15.1 K/UL (4.8-10.8) 14.5 K/UL (4.8-10.8) Red Blood Count 4.35 M/UL (4.20-5.40) 4.31 M/UL (4.20-5.40) 4.68 M/UL (4.20-5.40) Hemoglobin 8.6 G/DL (12.0-16.0) 9.0 G/DL (12.0-16.0) 9.7 G/DL (12.0-16.0) Hematocrit 29.2 % (37.0-47.0) 29.7 % (37.0-47.0) 33.2 % (37.0-47.0) Mean Corpuscular Volume 67 FL (80-99) 69 FL (80-99) 71 FL (80-99) Mean Corpuscular Hemoglobin 19.8 PG (27.0-31.0) 20.8 PG (27.0-31.0) 20.6 PG (27.0-31.0) Mean Corpuscular Hemoglobin Concent 29.5 G/DL (32.0-36.0) 30.2 G/DL (32.0-36.0) 29.1 G/DL (32.0-36.0) Red Cell Distribution Width 30.1 % (11.6-14.8) 32.4 % (11.6-14.8) 34.0 % (11.6-14.8) Platelet Count 306 K/UL (150-450) 305 K/UL (150-450) 287 K/UL (150-450) Mean Platelet Volume 7.9 FL (6.5-10.1) 8.1 FL (6.5-10.1) 6.7 FL (6.5-10.1) Neutrophils (%) (Auto) % (45.0-75.0) % (45.0-75.0) % (45.0-75.0) Lymphocytes (%) (Auto) % (20.0-45.0) % (20.0-45.0) % (20.0-45.0) Monocytes (%) (Auto) % (1.0-10.0) % (1.0-10.0) % (1.0-10.0) Eosinophils (%) (Auto) % (0.0-3.0) % (0.0-3.0) % (0.0-3.0) Basophils (%) (Auto) % (0.0-2.0) % (0.0-2.0) % (0.0-2.0) Differential Total Cells Counted 100 100 100 Neutrophils % (Manual) 89 % (45-75) 88 % (45-75) 90 % (45-75) Lymphocytes % (Manual) 7 % (20-45) 8 % (20-45) 4 % (20-45) Monocytes % (Manual) 4 % (1-10) 4 % (1-10) 6 % (1-10) Eosinophils % (Manual) 0 % (0-3) 0 % (0-3) 0 % (0-3) Basophils % (Manual) 0 % (0-2) 0 % (0-2) 0 % (0-2) Band Neutrophils 0 % (0-8) 0 % (0-8) 0 % (0-8) Platelet Estimate Adequate Adequate Adequate Platelet Morphology Normal Normal Normal Hypochromasia 2+ 1+ 1+ Anisocytosis 4+ 3+ 3+ Microcytosis 4+ 2+ 1+ Sodium Level 139 MMOL/L (136-145) 139 MMOL/L (136-145) 138 MMOL/L (136-145) Potassium Level 3.7 MMOL/L (3.5-5.1) 4.6 MMOL/L (3.5-5.1) 4.1 MMOL/L (3.5-5.1) Chloride Level 104 MMOL/L (98-107) 105 MMOL/L (98-107) 102 MMOL/L (98-107) Carbon Dioxide Level 27 MMOL/L (21-32) 23 MMOL/L (21-32) 26 MMOL/L (21-32) Anion Gap 8 mmol/L (5-15) 11 mmol/L (5-15) 10 mmol/L (5-15) Blood Urea Nitrogen 9 mg/dL (7-18) 11 mg/dL (7-18) 9 mg/dL (7-18) Creatinine 0.7 MG/DL (0.55-1.30) 0.6 MG/DL (0.55-1.30) 0.5 MG/DL (0.55-1.30) Estimat Glomerular Filtration Rate > 60 mL/min (>60) > 60 mL/min (>60) > 60 mL/min (>60) Glucose Level 138 MG/DL (74-106) 123 MG/DL (74-106) 151 MG/DL (74-106) Calcium Level 7.3 MG/DL (8.5-10.1) 7.3 MG/DL (8.5-10.1) 7.8 MG/DL (8.5-10.1) Phosphorus Level 4.2 MG/DL (2.5-4.9) Magnesium Level 2.0 MG/DL (1.8-2.4) Total Bilirubin 0.3 MG/DL (0.2-1.0) Aspartate Amino Transf (AST/SGOT) 30 U/L (15-37) Alanine Aminotransferase (ALT/SGPT) 23 U/L (12-78) Alkaline Phosphatase 78 U/L (46-116) C-Reactive Protein, Quantitative 16.3 mg/dL (0.00-0.90) Total Protein 6.2 G/DL (6.4-8.2) Albumin 2.3 G/DL (3.4-5.0) Globulin 3.9 g/dL Albumin/Globulin Ratio 0.6 (1.0-2.7) Stool Occult Blood Negative (NEGATIVE) Polychromasia 1+ D-Dimer 3.25 mg/L FEU (0.00-0.49) Height (Feet): 5 Height (Inches): 1.00 Weight (Pounds): 155 Objective Physical Exam: Vitals: reviewed General: NAD HEENT: nc, at Neck: supple Chest: clear breath sounds bilaterally, simple mask++ Cardiovascular: RRR, no s3, s4 Abdomen: soft, nontender, nd Extremities: no cce, normal range of motion Neuro: alert and oriented Eddie Pascual MD Jan 28, 2020 16:33
--- NOTE | 2020-01-28 16:48 | Nephrology Progress Note ---
Assessment/Plan Problem List: (1) Hypokalemia (2) Anemia Assessment: Iron deficiency (3) Suspected COVID-19 virus infection Assessment Hypokalemia, likely depletional Severe anemia, low iron Suspected COVID-19 infection Elevated inflammatory markers Plan Lab reviewed, Stable from renal standpoint to view Will monitor renal parameters and electrolytes. Continue per consultants. On Remdesivir and Decadron Change hypotonic solution to isotonic solution Potassium supplements IV iron Patient also transfused Continue per consultants Per orders Subjective ROS Limited/Unobtainable: No Objective Objective Last 24 Hour Vital Signs Date Time Temp Pulse Resp B/P (MAP) Pulse Ox O2 Delivery O2 Flow Rate FiO2 01/28/20 14:59 Nasal Cannula 3.0 01/28/20 14:00 Nasal Cannula 3.0 01/28/20 12:00 77 01/28/20 12:00 96.6 72 20 108/68 (81) 92 01/28/20 09:00 Simple Mask 8.0 01/28/20 08:00 84 01/28/20 08:00 96.6 51 20 116/56 (76) 95 01/28/20 07:00 96 Simple Mask 8.0 60 01/28/20 04:00 47 01/28/20 04:00 97.3 66 19 113/66 (82) 96 01/28/20 00:00 95 01/28/20 00:00 97.6 90 19 121/61 (81) 97 01/27/20 21:38 93 Simple Mask 8.0 60 01/27/20 21:00 Simple Mask 8.0 01/27/20 20:00 98.0 85 19 115/61 (79) 97 01/27/20 20:00 85 Intake and Output 01/27/20 01/28/20 19:00 07:00 Intake Total 740 ml 200 ml Output Total 200 ml Balance 540 ml 200 ml Intake Oral 740 ml Other 200 ml Output Urine Total 200 ml # Voids 2 2 Laboratory Tests 01/28/20 04:30: White Blood Count 14.5H, Red Blood Count 4.68, Hemoglobin 9.7L, Hematocrit 33.2L , Mean Corpuscular Volume 71L, Mean Corpuscular Hemoglobin 20.6L, Mean Corpuscular Hemoglobin Concent 29.1L, Red Cell Distribution Width 34.0H, Platelet Count 287, Mean Platelet Volume 6.7, Neutrophils (%) (Auto) , Lymphocytes (%) (Auto) , Monocytes (%) (Auto) , Eosinophils (%) (Auto) , Basophils (%) (Auto) , Differential Total Cells Counted 100, Neutrophils % ( Manual) 90H, Lymphocytes % (Manual) 4L, Monocytes % (Manual) 6, Eosinophils % ( Manual) 0, Basophils % (Manual) 0, Band Neutrophils 0, Platelet Estimate Adequate, Platelet Morphology Normal, Hypochromasia 1+, Anisocytosis 3+, Microcytosis 1+, Sodium Level 138, Potassium Level 4.1, Chloride Level 102, Carbon Dioxide Level 26, Anion Gap 10, Blood Urea Nitrogen 9, Creatinine 0.5L, Estimat Glomerular Filtration Rate > 60, Glucose Level 151H, Calcium Level 7.8L Height (Feet): 5 Height (Inches): 1.00 Weight (Pounds): 155 General Appearance: no apparent distress Objective No change Kristian Barry MD Jan 28, 2020 16:48
--- NOTE | 2020-01-28 19:15 | NUR ---
NURSE NOTES: Received report from PRAVEEN Rinaldi. Patient awake, alert, and responsive. Able to verbalize needs. IV site intact and asymptomatic. On 3L nasal cannula, saturating well. No signs of acute distress. No complaints of pain or discomfort at this time. Call light and belongings placed within reach. Bed in lowest position. Brakes engaged. Bed rails raised x2. Will continue to monitor.
--- NOTE | 2020-01-28 19:21 | NUR ---
HAND-OFF: Report given to Robinson/RN, Patient is in stable condition, Endorsed plan of care.
[2020-01-28 20:00] VITALS: BP 130/63
[2020-01-29] VITALS: BP 100/63
[2020-01-29 04:00] VITALS: BP 113/65
[2020-01-29] MEDS: guaiFENesin w/Codeine 5ml Liq ud ORAL PRN (04:08)
--- NOTE | 2020-01-29 06:26 | Hematology/Onc Progress Note ---
Assessment/Plan Assessment/Plan # Anemia of iron deficiency, unspecified rule out gi bleed --> obtain anemia panel, has been reviewed --> have begun on iv iron and continue x 5 doses --> review if occult blood is + (review this to make sure +). Can consider gi eval --> hgb goal is >7, transfuse as needed --> trend CBC daily to make sure no major acute drop --> no evidence of hemolysis noted --> hgb trend: 8.5->8.6->9.7 --> 01/22 stool ob neg # Leukocytosis/elevated white blood cell count, unspecified likely related to underlying stress reaction, smoking v covid19 infection --> have reviewed peripheral smear and bandemia/neutrophilia noted --> continue antibiotics if they have been started by ID team: cftx --> monitor for resolution --> started on remdesivir --> wbc trend 19-->9-->14.7-->14.5 # Elevated ddimer --> will recheck --> likely covid related --> is on lovenox for now --> 01/20 jaden duplex negative --> trend: 3.25 # Hypokalemia, likely depletional --> per renal, replete # Suspected COVID-19 infection # Elevated inflammatory markers # Dvt ppx with lovenox Appreciate consultaiton and agnes Rn Subjective HEENT: Denies: no symptoms, eye pain, blurred vision, tearing, double vision, ear pain, ear discharge, nose pain, nose congestion, throat pain, throat swelling, mouth pain, mouth swelling, other Cardiovascular: Denies: no symptoms, chest pain, edema, irregular heart rate, lightheadedness, palpitations, syncope, other Respiratory: Denies: no symptoms, cough, shortness of breath, SOB with excertion, SOB at rest, sputum, wheezing, other Gastrointestinal/Abdominal: Denies: no symptoms, abdomen distended, abdominal pain, black stools, tarry stools, blood in stool, constipated, diarrhea, difficulty swallowing, nausea, poor appetite, poor fluid intake, rectal bleeding , vomiting, other Genitourinary: Denies: no symptoms, burning, discharge, frequency, flank pain, hematuria, incontinence, pain, urgency, other Neurologic/Psychiatric: Denies: no symptoms, anxiety, depressed, emotional problems, headache, numbness, paresthesia, pre-existing deficit, seizure, tingling, tremors, weakness, other Endocrine: Denies: no symptoms, excessive sweating, flushing, intolerance to cold, intolerance to heat, increased hunger, increased thirst, increased urine, unexplained weight gain, unexplained weight loss, other Hematologic/Lymphatic: Denies: no symptoms, anemia, easy bleeding, easy bruising, adenopathy, other Allergies: Coded Allergies: No Known Allergies (Unverified , 10/19/15) Subjective 01/20 no events, has been started on iv iron, will recheck ddimer 01/21 jaden duplex negative for dvt, nrb o2, hgb 8.5, no distress 01/22 dry cough+, remdesivir, iv iron, nrb, stool ob pending 01/23 no overnight events, afebrile, bp stable 01/24 no bleeding, hgb is better, remains on iv iron, hgb 8.5 01/25 covid19 pna is better, labs noted, no bleeding, on abx 01/27 tele, stool ob negative, simple mask, no distress 01/28 no bleeding, hgb 9.7, no bleeding, meds reviewed Objective Objective Current Medications Medications (Trade) Dose Ordered Sig/Bhargav Route PRN Reason Start Time Stop Time Status Last Admin Dose Admin Acetaminophen (Tylenol) 650 mg Q6H PRN ORAL Temp >100.5 01/22/20 19:00 02/17/20 18:59 01/23/20 02:07 Acetaminophen (Tylenol) 650 mg Q6H PRN ORAL Mild Pain (Pain Scale 1-3) 01/22/20 19:00 02/21/20 18:59 Albuterol Sulfate (Proventil MDI) 2 puff Q4H PRN INH Shortness of Breath 01/23/20 13:30 04/22/20 13:29 Enoxaparin Sodium (Lovenox) 70 mg EVERY 12 HOURS SUBQ 01/23/20 21:00 04/22/20 20:59 01/28/20 21:21 Guaifenesin/ Codeine Phosphate (Robitussin with codeine) 5 ml Q6H PRN ORAL For Cough 01/22/20 19:00 02/17/20 18:59 01/29/20 04:08 Ondansetron HCl (Zofran) 4 mg Q6H PRN IVP Nausea & Vomiting 01/22/20 19:00 02/17/20 18:59 Polyethylene Glycol (Miralax) 17 gm DAILYPRN PRN ORAL Constipation 01/22/20 19:00 02/21/20 18:59 01/26/20 18:44 Last 24 Hour Vital Signs Date Time Temp Pulse Resp B/P (MAP) Pulse Ox O2 Delivery O2 Flow Rate FiO2 01/29/20 04:00 96.3 58 20 113/65 (81) 97 01/29/20 04:00 52 01/29/20 00:00 96.0 64 19 100/63 (75) 97 01/29/20 00:00 51 01/28/20 21:00 Nasal Cannula 3.0 01/28/20 20:00 74 01/28/20 20:00 96.4 71 19 130/63 (85) 99 01/28/20 16:00 67 01/28/20 16:00 97.3 86 20 117/67 (84) 94 01/28/20 14:59 Nasal Cannula 3.0 01/28/20 14:00 Nasal Cannula 3.0 01/28/20 12:00 77 01/28/20 12:00 96.6 72 20 108/68 (81) 92 01/28/20 09:00 Simple Mask 8.0 01/28/20 08:00 84 01/28/20 08:00 96.6 51 20 116/56 (76) 95 01/28/20 07:00 96 Simple Mask 8.0 60 01/28/20 04:00 47 01/28/20 04:00 97.3 66 19 113/66 (82) 96 01/28/20 00:00 95 01/28/20 00:00 97.6 90 19 121/61 (81) 97 01/27/20 21:38 93 Simple Mask 8.0 60 01/27/20 21:00 Simple Mask 8.0 01/27/20 20:00 98.0 85 19 115/61 (79) 97 01/27/20 20:00 85 01/27/20 16:00 97.7 75 18 107/53 (71) 97 01/27/20 16:00 86 01/27/20 12:00 103 01/27/20 12:00 97.9 77 18 110/46 (67) 92 01/27/20 09:00 Simple Mask 8.0 01/27/20 08:00 97.7 84 18 141/55 (83) 96 01/27/20 08:00 59 Intake and Output 01/28/20 01/29/20 19:00 07:00 Intake Total 720 ml 120 ml Balance 720 ml 120 ml Intake Oral 720 ml 120 ml # Voids 3 2 # Bowel Movements 1 1 Labs Test 01/27/20 04:17 01/27/20 06:20 01/28/20 04:30 Stool Occult Blood Negative (NEGATIVE) White Blood Count 15.1 K/UL (4.8-10.8) 14.5 K/UL (4.8-10.8) Red Blood Count 4.31 M/UL (4.20-5.40) 4.68 M/UL (4.20-5.40) Hemoglobin 9.0 G/DL (12.0-16.0) 9.7 G/DL (12.0-16.0) Hematocrit 29.7 % (37.0-47.0) 33.2 % (37.0-47.0) Mean Corpuscular Volume 69 FL (80-99) 71 FL (80-99) Mean Corpuscular Hemoglobin 20.8 PG (27.0-31.0) 20.6 PG (27.0-31.0) Mean Corpuscular Hemoglobin Concent 30.2 G/DL (32.0-36.0) 29.1 G/DL (32.0-36.0) Red Cell Distribution Width 32.4 % (11.6-14.8) 34.0 % (11.6-14.8) Platelet Count 305 K/UL (150-450) 287 K/UL (150-450) Mean Platelet Volume 8.1 FL (6.5-10.1) 6.7 FL (6.5-10.1) Neutrophils (%) (Auto) % (45.0-75.0) % (45.0-75.0) Lymphocytes (%) (Auto) % (20.0-45.0) % (20.0-45.0) Monocytes (%) (Auto) % (1.0-10.0) % (1.0-10.0) Eosinophils (%) (Auto) % (0.0-3.0) % (0.0-3.0) Basophils (%) (Auto) % (0.0-2.0) % (0.0-2.0) Differential Total Cells Counted 100 100 Neutrophils % (Manual) 88 % (45-75) 90 % (45-75) Lymphocytes % (Manual) 8 % (20-45) 4 % (20-45) Monocytes % (Manual) 4 % (1-10) 6 % (1-10) Eosinophils % (Manual) 0 % (0-3) 0 % (0-3) Basophils % (Manual) 0 % (0-2) 0 % (0-2) Band Neutrophils 0 % (0-8) 0 % (0-8) Platelet Estimate Adequate Adequate Platelet Morphology Normal Normal Polychromasia 1+ Hypochromasia 1+ 1+ Anisocytosis 3+ 3+ Microcytosis 2+ 1+ D-Dimer 3.25 mg/L FEU (0.00-0.49) Sodium Level 139 MMOL/L (136-145) 138 MMOL/L (136-145) Potassium Level 4.6 MMOL/L (3.5-5.1) 4.1 MMOL/L (3.5-5.1) Chloride Level 105 MMOL/L (98-107) 102 MMOL/L (98-107) Carbon Dioxide Level 23 MMOL/L (21-32) 26 MMOL/L (21-32) Anion Gap 11 mmol/L (5-15) 10 mmol/L (5-15) Blood Urea Nitrogen 11 mg/dL (7-18) 9 mg/dL (7-18) Creatinine 0.6 MG/DL (0.55-1.30) 0.5 MG/DL (0.55-1.30) Estimat Glomerular Filtration Rate > 60 mL/min (>60) > 60 mL/min (>60) Glucose Level 123 MG/DL (74-106) 151 MG/DL (74-106) Calcium Level 7.3 MG/DL (8.5-10.1) 7.8 MG/DL (8.5-10.1) Height (Feet): 5 Height (Inches): 1.00 Weight (Pounds): 155 Objective Physical Exam: Vitals: reviewed General: NAD HEENT: nc, at Neck: supple Chest: clear breath sounds bilaterally, simple mask++ Cardiovascular: RRR, no s3, s4 Abdomen: soft, nontender, nd Extremities: no cce, normal range of motion Neuro: alert and oriented Eddie Pascual MD Jan 29, 2020 06:26
[2020-01-29 06:58] LABS: HEMOGLOBIN 9.9 G/DL (12.0-16.0); MEAN CORPUSCULAR VOLUME 72 FL (80-99); PLATELET COUNT 326 K/UL (150-450); RED BLOOD COUNT 4.71 M/UL (4.20-5.40); RED CELL DISTRIBUTION WIDTH 33.6 % (11.6-14.8); WHITE BLOOD COUNT 15.7 K/UL (4.8-10.8)
[2020-01-29 07:11] LABS: ANION GAP 12 mmol/L (5-15); BLOOD UREA NITROGEN 13 mg/dL (7-18); CALCIUM 7.7 MG/DL (8.5-10.1); CARBON DIOXIDE 25 MMOL/L (21-32); CHLORIDE 100 MMOL/L (98-107); CREATININE 0.6 MG/DL (0.55-1.30); POTASSIUM 4.1 MMOL/L (3.5-5.1); SODIUM 137 MMOL/L (136-145)
--- NOTE | 2020-01-29 07:33 | Nephrology Progress Note ---
Assessment/Plan Problem List: (1) Hypokalemia (2) Anemia Assessment: Iron deficiency (3) Suspected COVID-19 virus infection Assessment Hypokalemia, likely depletional Severe anemia, low iron Suspected COVID-19 infection Elevated inflammatory markers Plan Lab reviewed, Stable from renal standpoint to view Will monitor renal parameters and electrolytes. Continue per consultants. On Remdesivir and Decadron Change hypotonic solution to isotonic solution Potassium supplements IV iron Patient also transfused Continue per consultants Per orders Subjective ROS Limited/Unobtainable: No Constitutional: Reports: malaise Objective Objective Last 24 Hour Vital Signs Date Time Temp Pulse Resp B/P (MAP) Pulse Ox O2 Delivery O2 Flow Rate FiO2 01/29/20 04:00 96.3 58 20 113/65 (81) 97 01/29/20 04:00 52 01/29/20 00:00 96.0 64 19 100/63 (75) 97 01/29/20 00:00 51 01/28/20 21:00 Nasal Cannula 3.0 01/28/20 20:00 74 01/28/20 20:00 96.4 71 19 130/63 (85) 99 01/28/20 16:00 67 01/28/20 16:00 97.3 86 20 117/67 (84) 94 01/28/20 14:59 Nasal Cannula 3.0 01/28/20 14:00 Nasal Cannula 3.0 01/28/20 12:00 77 01/28/20 12:00 96.6 72 20 108/68 (81) 92 01/28/20 09:00 Simple Mask 8.0 01/28/20 08:00 84 01/28/20 08:00 96.6 51 20 116/56 (76) 95 Intake and Output 01/28/20 01/29/20 19:00 07:00 Intake Total 720 ml 120 ml Balance 720 ml 120 ml Intake Oral 720 ml 120 ml # Voids 3 2 # Bowel Movements 1 1 Laboratory Tests 01/29/20 04:15: White Blood Count 15.7H, Red Blood Count 4.71, Hemoglobin 9.9L, Hematocrit 34.0L , Mean Corpuscular Volume 72L, Mean Corpuscular Hemoglobin 21.0L, Mean Corpuscular Hemoglobin Concent 29.1L, Red Cell Distribution Width 33.6H, Platelet Count 326, Mean Platelet Volume 6.8, Neutrophils (%) (Auto) , Lymphocytes (%) (Auto) , Monocytes (%) (Auto) , Eosinophils (%) (Auto) , Basophils (%) (Auto) , Neutrophils % (Manual) [Pending], Lymphocytes % (Manual) [Pending], Platelet Estimate [Pending], Platelet Morphology [Pending], Sodium Level 137, Potassium Level 4.1, Chloride Level 100, Carbon Dioxide Level 25, Anion Gap 12, Blood Urea Nitrogen 13, Creatinine 0.6, Estimat Glomerular Filtration Rate > 60, Glucose Level 150H, Calcium Level 7.7L Height (Feet): 5 Height (Inches): 1.00 Weight (Pounds): 155 General Appearance: no apparent distress Cardiovascular: normal rate Objective No change Kristian Barry MD Jan 29, 2020 07:33
--- NOTE | 2020-01-29 07:38 | NUR ---
HAND-OFF: Report given to PRAVEEN Bonilla. Plan of care endorsed. Patient stable.
[2020-01-29 08:00] VITALS: BP 107/58
--- NOTE | 2020-01-29 08:08 | NUR ---
NURSE NOTES: Received patient in bed awake. O2 via NC in place, no SOB or acute distress. IV line intact and patent. HOB elevated. Bed locked in lowest position. Call light within reach. Will continue plan of care.
--- NOTE | 2020-01-29 08:19 | General Progress Note ---
Assessment/Plan Problem List: (1) Malnutrition ICD Codes: E46 - Unspecified protein-calorie malnutrition SNOMED: 66298001 (2) Suspected COVID-19 virus infection ICD Codes: Z20.828 - Contact with and (suspected) exposure to other viral communicable diseases SNOMED: 283209966 (3) Pneumonia ICD Codes: J18.9 - Pneumonia, unspecified organism SNOMED: 660297394 Qualifiers: Qualified Codes: J18.9 - Pneumonia, unspecified organism (4) Anemia ICD Codes: D64.9 - Anemia, unspecified SNOMED: 267755465 Qualifiers: Qualified Codes: D64.9 - Anemia, unspecified Status: progressing, unchanged Assessment/Plan: abx pt diet cbc bmp am Subjective Constitutional: Reports: weakness Allergies: Coded Allergies: No Known Allergies (Unverified , 10/19/15) All Systems: reviewed and negative except above Subjective sleepy calm in bed Objective Last 24 Hour Vital Signs Date Time Temp Pulse Resp B/P (MAP) Pulse Ox O2 Delivery O2 Flow Rate FiO2 01/29/20 08:00 97.7 64 20 107/58 (74) 98 01/29/20 04:00 96.3 58 20 113/65 (81) 97 01/29/20 04:00 52 01/29/20 00:00 96.0 64 19 100/63 (75) 97 01/29/20 00:00 51 01/28/20 21:00 Nasal Cannula 3.0 01/28/20 20:00 74 01/28/20 20:00 96.4 71 19 130/63 (85) 99 01/28/20 16:00 67 01/28/20 16:00 97.3 86 20 117/67 (84) 94 01/28/20 14:59 Nasal Cannula 3.0 01/28/20 14:00 Nasal Cannula 3.0 01/28/20 12:00 77 01/28/20 12:00 96.6 72 20 108/68 (81) 92 01/28/20 09:00 Simple Mask 8.0 Intake and Output 01/28/20 01/29/20 19:00 07:00 Intake Total 720 ml 120 ml Balance 720 ml 120 ml Intake Oral 720 ml 120 ml # Voids 3 2 # Bowel Movements 1 1 Laboratory Tests 01/29/20 04:15: White Blood Count 15.7H, Red Blood Count 4.71, Hemoglobin 9.9L, Hematocrit 34.0L , Mean Corpuscular Volume 72L, Mean Corpuscular Hemoglobin 21.0L, Mean Corpuscular Hemoglobin Concent 29.1L, Red Cell Distribution Width 33.6H, Platelet Count 326, Mean Platelet Volume 6.8, Neutrophils (%) (Auto) , Lymphocytes (%) (Auto) , Monocytes (%) (Auto) , Eosinophils (%) (Auto) , Basophils (%) (Auto) , Neutrophils % (Manual) [Pending], Lymphocytes % (Manual) [Pending], Platelet Estimate [Pending], Platelet Morphology [Pending], Sodium Level 137, Potassium Level 4.1, Chloride Level 100, Carbon Dioxide Level 25, Anion Gap 12, Blood Urea Nitrogen 13, Creatinine 0.6, Estimat Glomerular Filtration Rate > 60, Glucose Level 150H, Calcium Level 7.7L Height (Feet): 5 Height (Inches): 1.00 Weight (Pounds): 155 General Appearance: lethargic EENT: normal ENT inspection Neck: normal alignment Cardiovascular: normal rate, regular rhythm Respiratory/Chest: no respiratory distress, no accessory muscle use Extremities: normal inspection Skin: normal pigmentation Louis Irvin DO Jan 29, 2020 08:19
[2020-01-29] MEDS: Enoxaparin 80mg Inj SUBQ SCH ×2 (08:27→20:54)
[2020-01-29 09:21] LABS: ALANINE AMINOTRANSFERASE 41 U/L (12-78); ALBUMIN 2.7 G/DL (3.4-5.0); ALKALINE PHOSPHATASE 92 U/L (46-116); ASPARTATE AMINO TRANSFERASE 39 U/L (15-37); BILIRUBIN,DIRECT < 0.1 MG/DL (0.0-0.3); BILIRUBIN,TOTAL 0.3 MG/DL (0.2-1.0); PHOSPHORUS 4.7 MG/DL (2.5-4.9)
--- NOTE | 2020-01-29 10:15 | Pulmonology Progress Note ---
Subjective ROS Limited/Unobtainable: No Interval Events: Now on 3L/min nasal O2 Constitutional: Denies: fever, chills HEENT: Repors: no symptoms Respiratory: Reports: no symptoms Cardiovascular: Reports: no symptoms Gastrointestinal/Abdominal: Reports: no symptoms Genitourinary: Reports: no symptoms Musculoskeletal: Denies: pain Allergies: Coded Allergies: No Known Allergies (Unverified , 10/19/15) All Systems: reviewed and negative except above Objective Last 24 Hour Vital Signs Date Time Temp Pulse Resp B/P (MAP) Pulse Ox O2 Delivery O2 Flow Rate FiO2 01/29/20 08:00 71 01/29/20 08:00 97.7 64 20 107/58 (74) 98 01/29/20 04:00 96.3 58 20 113/65 (81) 97 01/29/20 04:00 52 01/29/20 00:00 96.0 64 19 100/63 (75) 97 01/29/20 00:00 51 01/28/20 21:00 Nasal Cannula 3.0 01/28/20 20:00 74 01/28/20 20:00 96.4 71 19 130/63 (85) 99 01/28/20 16:00 67 01/28/20 16:00 97.3 86 20 117/67 (84) 94 01/28/20 14:59 Nasal Cannula 3.0 01/28/20 14:00 Nasal Cannula 3.0 01/28/20 12:00 77 01/28/20 12:00 96.6 72 20 108/68 (81) 92 Intake and Output 01/28/20 01/29/20 19:00 07:00 Intake Total 720 ml 120 ml Balance 720 ml 120 ml Intake Oral 720 ml 120 ml # Voids 3 2 # Bowel Movements 1 1 General Appearance: no acute distress HEENT: normocephalic Respiratory: chest wall non-tender, lungs clear Cardiovascular: normal peripheral pulses Abdomen: normal bowel sounds, soft, non tender Extremities: no cyanosis, no clubbing, no edema Laboratory Tests 01/29/20 04:15: White Blood Count 15.7H, Red Blood Count 4.71, Hemoglobin 9.9L, Hematocrit 34.0L , Mean Corpuscular Volume 72L, Mean Corpuscular Hemoglobin 21.0L, Mean Corpuscular Hemoglobin Concent 29.1L, Red Cell Distribution Width 33.6H, Platelet Count 326, Mean Platelet Volume 6.8, Neutrophils (%) (Auto) , Lymphocytes (%) (Auto) , Monocytes (%) (Auto) , Eosinophils (%) (Auto) , Basophils (%) (Auto) , Differential Total Cells Counted 100, Neutrophils % ( Manual) 83H, Lymphocytes % (Manual) 13L, Monocytes % (Manual) 4, Eosinophils % ( Manual) 0, Basophils % (Manual) 0, Band Neutrophils 0, Platelet Estimate Adequate, Platelet Morphology Normal, Polychromasia 1+, Hypochromasia 1+, Anisocytosis 3+, Microcytosis 1+, Sodium Level 137, Potassium Level 4.1, Chloride Level 100, Carbon Dioxide Level 25, Anion Gap 12, Blood Urea Nitrogen 13, Creatinine 0.6, Estimat Glomerular Filtration Rate > 60, Glucose Level 150H , Calcium Level 7.7L, Phosphorus Level 4.7, Magnesium Level 2.1, Total Bilirubin 0.3, Direct Bilirubin < 0.1, Aspartate Amino Transf (AST/SGOT) 39H, Alanine Aminotransferase (ALT/SGPT) 41, Alkaline Phosphatase 92, Total Protein 6.7, Albumin 2.7L Current Medications Medications (Trade) Dose Ordered Sig/Bhargav Route PRN Reason Start Time Stop Time Status Last Admin Dose Admin Acetaminophen (Tylenol) 650 mg Q6H PRN ORAL Temp >100.5 01/22/20 19:00 02/17/20 18:59 01/23/20 02:07 Acetaminophen (Tylenol) 650 mg Q6H PRN ORAL Mild Pain (Pain Scale 1-3) 01/22/20 19:00 02/21/20 18:59 Albuterol Sulfate (Proventil MDI) 2 puff Q4H PRN INH Shortness of Breath 01/23/20 13:30 04/22/20 13:29 Enoxaparin Sodium (Lovenox) 70 mg EVERY 12 HOURS SUBQ 01/23/20 21:00 04/22/20 20:59 01/29/20 08:27 Guaifenesin/ Codeine Phosphate (Robitussin with codeine) 5 ml Q6H PRN ORAL For Cough 01/22/20 19:00 02/17/20 18:59 01/29/20 04:08 Ondansetron HCl (Zofran) 4 mg Q6H PRN IVP Nausea & Vomiting 01/22/20 19:00 02/17/20 18:59 Polyethylene Glycol (Miralax) 17 gm DAILYPRN PRN ORAL Constipation 01/22/20 19:00 02/21/20 18:59 01/26/20 18:44 Assessment/Plan Assessment/Plan IMPRESSION: 1. Acute hypoxemic respiratory failure 2. COVID-19 pneumonia. DISCUSSION: Continue medications Seen by ID. Continue oxygen and pulmonary hygiene. I will follow carefully. S/p remdesivir and dexamethasone O2 requirements improving; now on nasal o2 CXR 01/27/20 better c/w 01/21/20 Jerald Bess Omar Syed MD Jan 29, 2020 10:15
--- NOTE | 2020-01-29 10:59 | Infectious Diseases Prog Note ---
Assessment/Plan Assessment/Plan antibiotics : none A 1. Covid 19 pneumonia improving on 3 liters, O2 92 percent saturation s/p remdesivir EUA, dexamethasone 2. leucocytosis increased, likely secondary to steroids 3. anemia P 1. continue off antibiotics 2 continue isolation Subjective Constitutional: Denies: fever, chills Respiratory: Reports: shortness of breath - decreased, dry cough - decreased Gastrointestinal/Abdominal: Denies: nausea, vomiting, diarrhea Musculoskeletal: Denies: pain Allergies: Coded Allergies: No Known Allergies (Unverified , 10/19/15) Objective Last 24 Hour Vital Signs Date Time Temp Pulse Resp B/P (MAP) Pulse Ox O2 Delivery O2 Flow Rate FiO2 01/29/20 09:00 Nasal Cannula 3.0 01/29/20 08:00 71 01/29/20 08:00 97.7 64 20 107/58 (74) 98 01/29/20 04:00 96.3 58 20 113/65 (81) 97 01/29/20 04:00 52 01/29/20 00:00 96.0 64 19 100/63 (75) 97 01/29/20 00:00 51 01/28/20 21:00 Nasal Cannula 3.0 01/28/20 20:00 74 01/28/20 20:00 96.4 71 19 130/63 (85) 99 01/28/20 16:00 67 01/28/20 16:00 97.3 86 20 117/67 (84) 94 01/28/20 14:59 Nasal Cannula 3.0 01/28/20 14:00 Nasal Cannula 3.0 01/28/20 12:00 77 01/28/20 12:00 96.6 72 20 108/68 (81) 92 Height (Feet): 5 Height (Inches): 1.00 Weight (Pounds): 155 Laboratory Tests Test 01/29/20 04:15 White Blood Count 15.7 K/UL (4.8-10.8) H Red Blood Count 4.71 M/UL (4.20-5.40) Hemoglobin 9.9 G/DL (12.0-16.0) L Hematocrit 34.0 % (37.0-47.0) L Mean Corpuscular Volume 72 FL (80-99) L Mean Corpuscular Hemoglobin 21.0 PG (27.0-31.0) L Mean Corpuscular Hemoglobin Concent 29.1 G/DL (32.0-36.0) L Red Cell Distribution Width 33.6 % (11.6-14.8) H Platelet Count 326 K/UL (150-450) Mean Platelet Volume 6.8 FL (6.5-10.1) Neutrophils (%) (Auto) % (45.0-75.0) Lymphocytes (%) (Auto) % (20.0-45.0) Monocytes (%) (Auto) % (1.0-10.0) Eosinophils (%) (Auto) % (0.0-3.0) Basophils (%) (Auto) % (0.0-2.0) Differential Total Cells Counted 100 Neutrophils % (Manual) 83 % (45-75) H Lymphocytes % (Manual) 13 % (20-45) L Monocytes % (Manual) 4 % (1-10) Eosinophils % (Manual) 0 % (0-3) Basophils % (Manual) 0 % (0-2) Band Neutrophils 0 % (0-8) Platelet Estimate Adequate Platelet Morphology Normal Polychromasia 1+ Hypochromasia 1+ Anisocytosis 3+ Microcytosis 1+ Sodium Level 137 MMOL/L (136-145) Potassium Level 4.1 MMOL/L (3.5-5.1) Chloride Level 100 MMOL/L (98-107) Carbon Dioxide Level 25 MMOL/L (21-32) Anion Gap 12 mmol/L (5-15) Blood Urea Nitrogen 13 mg/dL (7-18) Creatinine 0.6 MG/DL (0.55-1.30) Estimat Glomerular Filtration Rate > 60 mL/min (>60) Glucose Level 150 MG/DL (74-106) H Calcium Level 7.7 MG/DL (8.5-10.1) L Phosphorus Level 4.7 MG/DL (2.5-4.9) Magnesium Level 2.1 MG/DL (1.8-2.4) Total Bilirubin 0.3 MG/DL (0.2-1.0) Direct Bilirubin < 0.1 MG/DL (0.0-0.3) Aspartate Amino Transf (AST/SGOT) 39 U/L (15-37) H Alanine Aminotransferase (ALT/SGPT) 41 U/L (12-78) Alkaline Phosphatase 92 U/L (46-116) Total Protein 6.7 G/DL (6.4-8.2) Albumin 2.7 G/DL (3.4-5.0) L Current Medications Medications (Trade) Dose Ordered Sig/Bhargav Route PRN Reason Start Time Stop Time Status Last Admin Dose Admin Acetaminophen (Tylenol) 650 mg Q6H PRN ORAL Temp >100.5 01/22/20 19:00 02/17/20 18:59 01/23/20 02:07 Acetaminophen (Tylenol) 650 mg Q6H PRN ORAL Mild Pain (Pain Scale 1-3) 01/22/20 19:00 02/21/20 18:59 Albuterol Sulfate (Proventil MDI) 2 puff Q4H PRN INH Shortness of Breath 01/23/20 13:30 04/22/20 13:29 Enoxaparin Sodium (Lovenox) 70 mg EVERY 12 HOURS SUBQ 01/23/20 21:00 04/22/20 20:59 01/29/20 08:27 Guaifenesin/ Codeine Phosphate (Robitussin with codeine) 5 ml Q6H PRN ORAL For Cough 01/22/20 19:00 02/17/20 18:59 01/29/20 04:08 Ondansetron HCl (Zofran) 4 mg Q6H PRN IVP Nausea & Vomiting 01/22/20 19:00 02/17/20 18:59 Polyethylene Glycol (Miralax) 17 gm DAILYPRN PRN ORAL Constipation 01/22/20 19:00 02/21/20 18:59 01/26/20 18:44 Pati Fonseca MD Jan 29, 2020 10:59
--- NOTE | 2020-01-29 11:47 | NUR ---
*-* INSURANCE *-* UPDATED CLINICALS HAVE BEEN FAXED TO: ILANA RUTHIE P:[phone] F:[phone] Addendum: 01/29/20 at 1401 by BRANDY NEELY LVN LVN DRAW [employer]ING [facility]NOT[facility] PRAVEEN PRICE CASE REF # [id number] [phone] [id number]
[2020-01-29 12:00] VITALS: BP 101/55
--- NOTE | 2020-01-29 13:48 | NUR ---
CASE MANAGEMENT:REVIEW 01/29/20 SI: COVID PNEUMONIA 97.7 70 20 101/55 97% ON 3L/NC WBC+15.7 GLUCOSE+150 CA-7.7 IS: LOVENOX SQ Q12 ROBITUSSIN W/CODEINE PO Q6HRSD PRN : TELEMETRY STATUS DCP: HOME WITH OXYGEN PLAN: REPEAT COVID SWAB OXYGEN TITRATED TO 2L AND PATIENT DESATURATED TO 88%. OXYGEN RETURNED TO 3L/NC PATIENT WILL NEED OXYGEN FOR HOME USE
--- NOTE | 2020-01-29 13:56 | NUR ---
DISCHARGE PLANNING DISCHARGE PLANNING DISCUSSED WITH DR GUILLEN NURSE TITRATED OXYGEN TO 2L AND PATIENT DESATURATED TO 88%. JHONY FERNANDEZ SPOKE WITH [employer], DEE, WHO INSTRUCTED US TO FAX HOME OXYGEN REQUEST TO [facility] T: [phone] F:[phone] Addendum: 01/29/20 at 1555 by BRANDY NEELY LVN LVN FOLLOW UP CALL PLACED TO [facility] AND SPOKE WITH [facility] OXYGEN WILL BE DELIVERED TOMORROW BETWEEN 11:00 - 13:00
--- NOTE | 2020-01-29 14:10 | NUR ---
NURSE NOTES: Patient observed on room air, O2 sat goes down to 89. Placed back on O2 at 2LPM, O2 sat at 90-91.
--- NOTE | 2020-01-29 14:42 | NUR ---
NURSE NOTES: Covid swab done, sent to lab.
--- NOTE | 2020-01-29 15:10 | NUR ---
NURSE NOTES: Patient observed again on room air, saturation down to 88. Placed back on NC at 2LPM, saturation at 90-91.
[2020-01-29 16:00] VITALS: BP 97/47
--- NOTE | 2020-01-29 16:31 | NUR ---
OXYGEN DELIVERY UPDATE [facility] WILL BE DELIVERING BOTH PORTABLE AND CONCENTRATOR TO HOSPITAL TOMORROW
--- NOTE | 2020-01-29 18:11 | NUR ---
NURSE NOTES: For transfer to [facility] once room is available, patient aware.
--- NOTE | 2020-01-29 19:00 | NUR ---
HAND-OFF: Patient transferred to [facility], report given to Sheryl MORTON. Telebox removed. Belongings acocunted for. Connected to O2 regulator at 2LPM.
[2020-01-29] MEDS ORDERED: Albuterol 90mcg Inhaler 8gm INH PRN (19:14)
[2020-01-29] MEDS ORDERED: Miralax 17gm pkt ORAL PRN (19:14)
[2020-01-29] MEDS ORDERED: guaiFENesin w/Codeine 5ml Liq ud ORAL PRN (19:14)
--- NOTE | 2020-01-29 19:27 | NUR ---
NURSE NOTES: Received patient in bed, transferred from telemetry floor, patient is awake, alert, oriented x4, able to verbalize her needs, IV site is clean dry and intact, patient is ambulatory with steady gate, on oxygen at 2 liters per minute. Call light is within reach, bed is lowered, locked, alarm is on, will continue to monitor for comfort and safety.
[2020-01-29 20:00] VITALS: BP 113/71
[2020-01-30] VITALS: BP 99/59
[2020-01-30 04:00] VITALS: BP 102/65
[2020-01-30 05:55] LABS: BASOPHILS % (AUTO) 0.5 % (0.0-2.0); EOSINOPHILS % (AUTO) 2.2 % (0.0-3.0); HEMATOCRIT 34.9 % (37.0-47.0); HEMOGLOBIN 10.1 G/DL (12.0-16.0); LYMPHOCYTES % (AUTO) 15.8 % (20.0-45.0); MEAN CORPUSCULAR VOLUME 73 FL (80-99); MONOCYTES % (AUTO) 5.7 % (1.0-10.0); NEUTROPHILS % (AUTO) 75.9 % (45.0-75.0); PLATELET COUNT 351 K/UL (150-450); RED BLOOD COUNT 4.77 M/UL (4.20-5.40); RED CELL DISTRIBUTION WIDTH 34.8 % (11.6-14.8); WHITE BLOOD COUNT 13.5 K/UL (4.8-10.8)
[2020-01-30 06:05] LABS: ANION GAP 6 mmol/L (5-15); BLOOD UREA NITROGEN 21 mg/dL (7-18); CARBON DIOXIDE 27 MMOL/L (21-32); CHLORIDE 103 MMOL/L (98-107); CREATININE 0.6 MG/DL (0.55-1.30); POTASSIUM 4.1 MMOL/L (3.5-5.1); SODIUM 136 MMOL/L (136-145)
--- NOTE | 2020-01-30 07:12 | NUR ---
HAND-OFF: Report given to Roopa MORTON.
--- NOTE | 2020-01-30 07:15 | NUR ---
NURSE NOTES: Received patient in bed,awake, alert and oriented x4. Not in acute respiratory/cardiac distress. Patient is on 2L/oxygen with NC. Noted with dry cough but denies SOB or pain @ this time. Iv is intact, no s/s of infiltration.Bed is in lowest position and locked. Call light within reach. Reminded patient to use call light if needed.Room board was update. Observed isolation. Will continue plan of care.
[2020-01-30 08:00] VITALS: BP 98/57
[2020-01-30] MEDS: Enoxaparin 80mg Inj SUBQ SCH (09:07)
--- NOTE | 2020-01-30 09:30 | NUR ---
CASE MANAGEMENT:REVIEW 01/30/20 SI: COVID PNEUMONIA 96.8 60 16 102/65 94% ON 2L/NC WBC+13.5 BUN+21 IS: LOVENOX SQ Q12 ROBITUSSIN W/CODEINE PO Q6HRSD PRN : NOW ON MED/SURG 4[facility]AST DCP: HOME WITH OXYGEN PLAN: REPEAT COVID RESULTS PENDING HOME OXYGEN HAS BEEN ORDERED AND WILL BE DELIVERED TO HOSPITAL THIS AFTERNOON
--- NOTE | 2020-01-30 10:19 | NUR ---
NURSE NOTES: Patient noted with dry cough and asks for cough med. Given PRN cough syrup as ordered.
--- NOTE | 2020-01-30 10:36 | Pulmonology Progress Note ---
Subjective ROS Limited/Unobtainable: No Interval Events: Now on 2L/min nasal O2 Constitutional: Denies: fever, chills HEENT: Repors: no symptoms Respiratory: Reports: no symptoms Cardiovascular: Reports: no symptoms Gastrointestinal/Abdominal: Denies: nausea, vomiting, diarrhea Genitourinary: Reports: no symptoms Musculoskeletal: Denies: pain Allergies: Coded Allergies: No Known Allergies (Unverified , 10/19/15) All Systems: reviewed and negative except above Objective Last 24 Hour Vital Signs Date Time Temp Pulse Resp B/P (MAP) Pulse Ox O2 Delivery O2 Flow Rate FiO2 01/30/20 09:00 Nasal Cannula 2.0 01/30/20 08:00 97.9 76 20 98/57 (71) 94 01/30/20 04:00 96.8 60 16 102/65 (77) 94 01/30/20 00:00 97.7 68 16 99/59 (72) 98 01/29/20 21:32 Nasal Cannula 3.0 01/29/20 20:00 98.1 89 16 113/71 (85) 91 01/29/20 20:00 97 Nasal Cannula 3.0 32 01/29/20 16:30 79 01/29/20 16:00 97.3 75 20 97/47 (64) 93 01/29/20 12:00 62 01/29/20 12:00 97.7 70 20 101/55 (70) 97 Intake and Output 01/29/20 01/30/20 19:00 07:00 Intake Total 500 ml Balance 500 ml Intake Oral 500 ml # Voids 5 # Bowel Movements 1 General Appearance: no acute distress HEENT: normocephalic Respiratory: chest wall non-tender, lungs clear Cardiovascular: normal peripheral pulses Abdomen: normal bowel sounds, soft, non tender Extremities: no cyanosis, no clubbing, no edema Laboratory Tests 01/30/20 04:45: White Blood Count 13.5H, Red Blood Count 4.77, Hemoglobin 10.1L, Hematocrit 34.9L, Mean Corpuscular Volume 73L, Mean Corpuscular Hemoglobin 21.1L, Mean Corpuscular Hemoglobin Concent 28.9L, Red Cell Distribution Width 34.8H, Platelet Count 351, Mean Platelet Volume 7.5, Neutrophils (%) (Auto) 75.9H, Lymphocytes (%) (Auto) 15.8L, Monocytes (%) (Auto) 5.7, Eosinophils (%) (Auto) 2.2, Basophils (%) (Auto) 0.5, Sodium Level 136, Potassium Level 4.1, Chloride Level 103, Carbon Dioxide Level 27, Anion Gap 6, Blood Urea Nitrogen 21H, Creatinine 0.6, Estimat Glomerular Filtration Rate > 60, Glucose Level 76, Calcium Level 8.0L Current Medications Medications (Trade) Dose Ordered Sig/Bhargav Route PRN Reason Start Time Stop Time Status Last Admin Dose Admin Acetaminophen (Tylenol) 650 mg Q6H PRN ORAL Mild Pain (Pain Scale 1-3) 01/29/20 19:14 02/28/20 19:13 Acetaminophen (Tylenol) 650 mg Q6H PRN ORAL Temp >100.5 01/29/20 19:14 02/28/20 19:13 Albuterol Sulfate (Proventil MDI) 2 puff Q4H PRN INH Shortness of Breath 01/29/20 19:14 04/28/20 19:13 Enoxaparin Sodium (Lovenox) 70 mg EVERY 12 HOURS SUBQ 01/29/20 21:00 04/22/20 20:59 01/30/20 09:07 Guaifenesin/ Codeine Phosphate (Robitussin with codeine) 5 ml Q6H PRN ORAL For Cough 01/29/20 19:14 02/28/20 19:13 01/30/20 10:19 Ondansetron HCl (Zofran) 4 mg Q6H PRN IVP Nausea & Vomiting 01/29/20 19:14 02/28/20 19:13 Polyethylene Glycol (Miralax) 17 gm DAILYPRN PRN ORAL Constipation 01/29/20 19:14 02/28/20 19:13 Assessment/Plan Assessment/Plan IMPRESSION: 1. Acute hypoxemic respiratory failure 2. COVID-19 pneumonia. DISCUSSION: Continue medications Seen by ID. Continue oxygen and pulmonary hygiene. I will follow carefully. S/p remdesivir and dexamethasone O2 requirements improving; now on nasal o2 CXR 01/27/20 better c/w 01/21/20 Jerald Bess Omar Syed MD Jan 30, 2020 10:36
--- NOTE | 2020-01-30 10:46 | Infectious Diseases Prog Note ---
Assessment/Plan Assessment/Plan antibiotics : none A 1. Covid 19 pneumonia improving on 3 liters, O2 97 percent saturation s/p remdesivir EUA, dexamethasone 2. leucocytosis increased, likely secondary to steroids 3. anemia P 1. continue off antibiotics 2 continue isolation Subjective Constitutional: Denies: fever, chills Respiratory: Reports: shortness of breath - decreased, dry cough Gastrointestinal/Abdominal: Denies: nausea, vomiting, diarrhea Musculoskeletal: Denies: pain Allergies: Coded Allergies: No Known Allergies (Unverified , 10/19/15) Objective Last 24 Hour Vital Signs Date Time Temp Pulse Resp B/P (MAP) Pulse Ox O2 Delivery O2 Flow Rate FiO2 01/30/20 09:00 Nasal Cannula 2.0 01/30/20 08:00 97.9 76 20 98/57 (71) 94 01/30/20 04:00 96.8 60 16 102/65 (77) 94 01/30/20 00:00 97.7 68 16 99/59 (72) 98 01/29/20 21:32 Nasal Cannula 3.0 01/29/20 20:00 98.1 89 16 113/71 (85) 91 01/29/20 20:00 97 Nasal Cannula 3.0 32 01/29/20 16:30 79 01/29/20 16:00 97.3 75 20 97/47 (64) 93 01/29/20 12:00 62 01/29/20 12:00 97.7 70 20 101/55 (70) 97 Height (Feet): 5 Height (Inches): 1.00 Weight (Pounds): 155 Laboratory Tests Test 01/30/20 04:45 White Blood Count 13.5 K/UL (4.8-10.8) H Red Blood Count 4.77 M/UL (4.20-5.40) Hemoglobin 10.1 G/DL (12.0-16.0) L Hematocrit 34.9 % (37.0-47.0) L Mean Corpuscular Volume 73 FL (80-99) L Mean Corpuscular Hemoglobin 21.1 PG (27.0-31.0) L Mean Corpuscular Hemoglobin Concent 28.9 G/DL (32.0-36.0) L Red Cell Distribution Width 34.8 % (11.6-14.8) H Platelet Count 351 K/UL (150-450) Mean Platelet Volume 7.5 FL (6.5-10.1) Neutrophils (%) (Auto) 75.9 % (45.0-75.0) H Lymphocytes (%) (Auto) 15.8 % (20.0-45.0) L Monocytes (%) (Auto) 5.7 % (1.0-10.0) Eosinophils (%) (Auto) 2.2 % (0.0-3.0) Basophils (%) (Auto) 0.5 % (0.0-2.0) Sodium Level 136 MMOL/L (136-145) Potassium Level 4.1 MMOL/L (3.5-5.1) Chloride Level 103 MMOL/L (98-107) Carbon Dioxide Level 27 MMOL/L (21-32) Anion Gap 6 mmol/L (5-15) Blood Urea Nitrogen 21 mg/dL (7-18) H Creatinine 0.6 MG/DL (0.55-1.30) Estimat Glomerular Filtration Rate > 60 mL/min (>60) Glucose Level 76 MG/DL (74-106) Calcium Level 8.0 MG/DL (8.5-10.1) L Current Medications Medications (Trade) Dose Ordered Sig/Bhargav Route PRN Reason Start Time Stop Time Status Last Admin Dose Admin Acetaminophen (Tylenol) 650 mg Q6H PRN ORAL Mild Pain (Pain Scale 1-3) 01/29/20 19:14 02/28/20 19:13 Acetaminophen (Tylenol) 650 mg Q6H PRN ORAL Temp >100.5 01/29/20 19:14 02/28/20 19:13 Albuterol Sulfate (Proventil MDI) 2 puff Q4H PRN INH Shortness of Breath 01/29/20 19:14 04/28/20 19:13 Enoxaparin Sodium (Lovenox) 70 mg EVERY 12 HOURS SUBQ 01/29/20 21:00 04/22/20 20:59 01/30/20 09:07 Guaifenesin/ Codeine Phosphate (Robitussin with codeine) 5 ml Q6H PRN ORAL For Cough 01/29/20 19:14 02/28/20 19:13 01/30/20 10:19 Ondansetron HCl (Zofran) 4 mg Q6H PRN IVP Nausea & Vomiting 01/29/20 19:14 02/28/20 19:13 Polyethylene Glycol (Miralax) 17 gm DAILYPRN PRN ORAL Constipation 01/29/20 19:14 02/28/20 19:13 Pati Fonseca MD Jan 30, 2020 10:46
--- NOTE | 2020-01-30 11:18 | Hematology/Onc Progress Note ---
Assessment/Plan Assessment/Plan # Anemia of iron deficiency, unspecified rule out gi bleed --> obtain anemia panel, has been reviewed --> have begun on iv iron and continue x 5 doses --> review if occult blood is + (review this to make sure +). Can consider gi eval --> hgb goal is >7, transfuse as needed --> trend CBC daily to make sure no major acute drop --> no evidence of hemolysis noted --> hgb trend: 8.5->8.6->9.7 -->10 --> 01/22 stool ob neg # Leukocytosis/elevated white blood cell count, unspecified likely related to underlying stress reaction, smoking v covid19 infection --> have reviewed peripheral smear and bandemia/neutrophilia noted --> continue antibiotics if they have been started by ID team: cftx --> monitor for resolution --> started on remdesivir --> wbc trend 19-->9-->14.7-->14.5-->13 # Elevated ddimer --> will recheck --> likely covid related --> is on lovenox for now --> 01/20 jaden duplex negative --> trend: 3.25 # Hypokalemia, likely depletional --> per renal, replete # Suspected COVID-19 infection # Elevated inflammatory markers # Dvt ppx with lovenox Appreciate consultaiton and agnes Rn Subjective Constitutional: Denies: no symptoms, chills, fever, malaise, weakness, other HEENT: Denies: no symptoms, eye pain, blurred vision, tearing, double vision, ear pain, ear discharge, nose pain, nose congestion, throat pain, throat swelling, mouth pain, mouth swelling, other Respiratory: Denies: no symptoms, cough, shortness of breath, SOB with excertion, SOB at rest, sputum, wheezing, other Gastrointestinal/Abdominal: Denies: no symptoms, abdomen distended, abdominal pain, black stools, tarry stools, blood in stool, constipated, diarrhea, difficulty swallowing, nausea, poor appetite, poor fluid intake, rectal bleeding , vomiting, other Genitourinary: Denies: no symptoms, burning, discharge, frequency, flank pain, hematuria, incontinence, pain, urgency, other Neurologic/Psychiatric: Denies: no symptoms, anxiety, depressed, emotional problems, headache, numbness, paresthesia, pre-existing deficit, seizure, tingling, tremors, weakness, other Endocrine: Denies: no symptoms, excessive sweating, flushing, intolerance to cold, intolerance to heat, increased hunger, increased thirst, increased urine, unexplained weight gain, unexplained weight loss, other Allergies: Coded Allergies: No Known Allergies (Unverified , 10/19/15) Subjective 01/20 no events, has been started on iv iron, will recheck ddimer 01/21 jaden duplex negative for dvt, nrb o2, hgb 8.5, no distress 01/22 dry cough+, remdesivir, iv iron, nrb, stool ob pending 01/23 no overnight events, afebrile, bp stable 01/24 no bleeding, hgb is better, remains on iv iron, hgb 8.5 01/25 covid19 pna is better, labs noted, no bleeding, on abx 01/27 tele, stool ob negative, simple mask, no distress 01/28 no bleeding, hgb 9.7, no bleeding, meds reviewed 01/29 no major changes, no night sweats, meds are noted Objective Objective Current Medications Medications (Trade) Dose Ordered Sig/Hbargav Route PRN Reason Start Time Stop Time Status Last Admin Dose Admin Acetaminophen (Tylenol) 650 mg Q6H PRN ORAL Mild Pain (Pain Scale 1-3) 01/29/20 19:14 02/28/20 19:13 Acetaminophen (Tylenol) 650 mg Q6H PRN ORAL Temp >100.5 01/29/20 19:14 02/28/20 19:13 Albuterol Sulfate (Proventil MDI) 2 puff Q4H PRN INH Shortness of Breath 01/29/20 19:14 04/28/20 19:13 Enoxaparin Sodium (Lovenox) 70 mg EVERY 12 HOURS SUBQ 01/29/20 21:00 04/22/20 20:59 01/30/20 09:07 Guaifenesin/ Codeine Phosphate (Robitussin with codeine) 5 ml Q6H PRN ORAL For Cough 01/29/20 19:14 02/28/20 19:13 01/30/20 10:19 Ondansetron HCl (Zofran) 4 mg Q6H PRN IVP Nausea & Vomiting 01/29/20 19:14 02/28/20 19:13 Polyethylene Glycol (Miralax) 17 gm DAILYPRN PRN ORAL Constipation 01/29/20 19:14 02/28/20 19:13 Last 24 Hour Vital Signs Date Time Temp Pulse Resp B/P (MAP) Pulse Ox O2 Delivery O2 Flow Rate FiO2 01/30/20 09:00 Nasal Cannula 2.0 01/30/20 08:00 97.9 76 20 98/57 (71) 94 01/30/20 04:00 96.8 60 16 102/65 (77) 94 01/30/20 00:00 97.7 68 16 99/59 (72) 98 01/29/20 21:32 Nasal Cannula 3.0 01/29/20 20:00 98.1 89 16 113/71 (85) 91 01/29/20 20:00 97 Nasal Cannula 3.0 32 01/29/20 16:30 79 01/29/20 16:00 97.3 75 20 97/47 (64) 93 01/29/20 12:00 62 01/29/20 12:00 97.7 70 20 101/55 (70) 97 01/29/20 09:00 Nasal Cannula 3.0 01/29/20 08:00 71 01/29/20 08:00 97.7 64 20 107/58 (74) 98 01/29/20 04:00 96.3 58 20 113/65 (81) 97 01/29/20 04:00 52 01/29/20 00:00 96.0 64 19 100/63 (75) 97 01/29/20 00:00 51 01/28/20 21:00 Nasal Cannula 3.0 01/28/20 20:00 74 01/28/20 20:00 96.4 71 19 130/63 (85) 99 01/28/20 16:00 67 01/28/20 16:00 97.3 86 20 117/67 (84) 94 01/28/20 14:59 Nasal Cannula 3.0 01/28/20 14:00 Nasal Cannula 3.0 01/28/20 12:00 77 01/28/20 12:00 96.6 72 20 108/68 (81) 92 Intake and Output 01/29/20 01/30/20 19:00 07:00 Intake Total 500 ml Balance 500 ml Intake Oral 500 ml # Voids 5 # Bowel Movements 1 Labs Test 01/28/20 04:30 01/29/20 04:15 01/30/20 04:45 White Blood Count 14.5 K/UL (4.8-10.8) 15.7 K/UL (4.8-10.8) 13.5 K/UL (4.8-10.8) Red Blood Count 4.68 M/UL (4.20-5.40) 4.71 M/UL (4.20-5.40) 4.77 M/UL (4.20-5.40) Hemoglobin 9.7 G/DL (12.0-16.0) 9.9 G/DL (12.0-16.0) 10.1 G/DL (12.0-16.0) Hematocrit 33.2 % (37.0-47.0) 34.0 % (37.0-47.0) 34.9 % (37.0-47.0) Mean Corpuscular Volume 71 FL (80-99) 72 FL (80-99) 73 FL (80-99) Mean Corpuscular Hemoglobin 20.6 PG (27.0-31.0) 21.0 PG (27.0-31.0) 21.1 PG (27.0-31.0) Mean Corpuscular Hemoglobin Concent 29.1 G/DL (32.0-36.0) 29.1 G/DL (32.0-36.0) 28.9 G/DL (32.0-36.0) Red Cell Distribution Width 34.0 % (11.6-14.8) 33.6 % (11.6-14.8) 34.8 % (11.6-14.8) Platelet Count 287 K/UL (150-450) 326 K/UL (150-450) 351 K/UL (150-450) Mean Platelet Volume 6.7 FL (6.5-10.1) 6.8 FL (6.5-10.1) 7.5 FL (6.5-10.1) Neutrophils (%) (Auto) % (45.0-75.0) % (45.0-75.0) 75.9 % (45.0-75.0) Lymphocytes (%) (Auto) % (20.0-45.0) % (20.0-45.0) 15.8 % (20.0-45.0) Monocytes (%) (Auto) % (1.0-10.0) % (1.0-10.0) 5.7 % (1.0-10.0) Eosinophils (%) (Auto) % (0.0-3.0) % (0.0-3.0) 2.2 % (0.0-3.0) Basophils (%) (Auto) % (0.0-2.0) % (0.0-2.0) 0.5 % (0.0-2.0) Differential Total Cells Counted 100 100 Neutrophils % (Manual) 90 % (45-75) 83 % (45-75) Lymphocytes % (Manual) 4 % (20-45) 13 % (20-45) Monocytes % (Manual) 6 % (1-10) 4 % (1-10) Eosinophils % (Manual) 0 % (0-3) 0 % (0-3) Basophils % (Manual) 0 % (0-2) 0 % (0-2) Band Neutrophils 0 % (0-8) 0 % (0-8) Platelet Estimate Adequate Adequate Platelet Morphology Normal Normal Hypochromasia 1+ 1+ Anisocytosis 3+ 3+ Microcytosis 1+ 1+ Sodium Level 138 MMOL/L (136-145) 137 MMOL/L (136-145) 136 MMOL/L (136-145) Potassium Level 4.1 MMOL/L (3.5-5.1) 4.1 MMOL/L (3.5-5.1) 4.1 MMOL/L (3.5-5.1) Chloride Level 102 MMOL/L (98-107) 100 MMOL/L (98-107) 103 MMOL/L (98-107) Carbon Dioxide Level 26 MMOL/L (21-32) 25 MMOL/L (21-32) 27 MMOL/L (21-32) Anion Gap 10 mmol/L (5-15) 12 mmol/L (5-15) 6 mmol/L (5-15) Blood Urea Nitrogen 9 mg/dL (7-18) 13 mg/dL (7-18) 21 mg/dL (7-18) Creatinine 0.5 MG/DL (0.55-1.30) 0.6 MG/DL (0.55-1.30) 0.6 MG/DL (0.55-1.30) Estimat Glomerular Filtration Rate > 60 mL/min (>60) > 60 mL/min (>60) > 60 mL/min (>60) Glucose Level 151 MG/DL (74-106) 150 MG/DL (74-106) 76 MG/DL (74-106) Calcium Level 7.8 MG/DL (8.5-10.1) 7.7 MG/DL (8.5-10.1) 8.0 MG/DL (8.5-10.1) Polychromasia 1+ Phosphorus Level 4.7 MG/DL (2.5-4.9) Magnesium Level 2.1 MG/DL (1.8-2.4) Total Bilirubin 0.3 MG/DL (0.2-1.0) Direct Bilirubin < 0.1 MG/DL (0.0-0.3) Aspartate Amino Transf (AST/SGOT) 39 U/L (15-37) Alanine Aminotransferase (ALT/SGPT) 41 U/L (12-78) Alkaline Phosphatase 92 U/L (46-116) Total Protein 6.7 G/DL (6.4-8.2) Albumin 2.7 G/DL (3.4-5.0) Height (Feet): 5 Height (Inches): 1.00 Weight (Pounds): 155 Objective Physical Exam: Vitals: reviewed General: NAD HEENT: nc, at Neck: supple Chest: clear breath sounds bilaterally, simple mask++ Cardiovascular: RRR, no s3, s4 Abdomen: soft, nontender, nd Extremities: no cce, normal range of motion Neuro: alert and oriented Eddie Pascual MD Jan 30, 2020 11:18
--- NOTE | 2020-01-30 11:21 | NUR ---
NURSE NOTES: 1 regular and 1 portable oxygen was delivered from [facility] [employer] and patient was educated about oxygen such as how to use, what are the precautions and etc. by person from the company. Oxygen tank and portable tank @ the bedside.
--- NOTE | 2020-01-30 11:22 | NUR ---
*-* INSURANCE *-* UPDATED CLINICALS AND REVIEWS HAVE BEEN FAXED TO: [facility] [place] REF # [id number] Cm:PRAVEEN PRICE P:[phone] F:[phone]
[2020-01-30 12:00] VITALS: BP 97/56
--- NOTE | 2020-01-30 13:23 | General Progress Note ---
Assessment/Plan Problem List: (1) Malnutrition ICD Codes: E46 - Unspecified protein-calorie malnutrition SNOMED: 70441026 (2) Suspected COVID-19 virus infection ICD Codes: Z20.828 - Contact with and (suspected) exposure to other viral communicable diseases SNOMED: 196284039 (3) Pneumonia ICD Codes: J18.9 - Pneumonia, unspecified organism SNOMED: 518656536 Qualifiers: Qualified Codes: J18.9 - Pneumonia, unspecified organism (4) Anemia ICD Codes: D64.9 - Anemia, unspecified SNOMED: 815778492 Qualifiers: Qualified Codes: D64.9 - Anemia, unspecified Status: progressing, unchanged Assessment/Plan: abx pt diet cbc bmp am dc plan Subjective Constitutional: Reports: weakness Allergies: Coded Allergies: No Known Allergies (Unverified , 10/19/15) All Systems: reviewed and negative except above Subjective sleepy calm in bed Objective Last 24 Hour Vital Signs Date Time Temp Pulse Resp B/P (MAP) Pulse Ox O2 Delivery O2 Flow Rate FiO2 01/30/20 12:00 97.7 84 20 97/56 (70) 94 01/30/20 09:00 Nasal Cannula 2.0 01/30/20 08:00 97.9 76 20 98/57 (71) 94 01/30/20 04:00 96.8 60 16 102/65 (77) 94 01/30/20 00:00 97.7 68 16 99/59 (72) 98 01/29/20 21:32 Nasal Cannula 3.0 01/29/20 20:00 98.1 89 16 113/71 (85) 91 01/29/20 20:00 97 Nasal Cannula 3.0 32 01/29/20 16:30 79 01/29/20 16:00 97.3 75 20 97/47 (64) 93 Intake and Output 01/29/20 01/30/20 19:00 07:00 Intake Total 500 ml Balance 500 ml Intake Oral 500 ml # Voids 5 # Bowel Movements 1 Laboratory Tests 01/30/20 04:45: White Blood Count 13.5H, Red Blood Count 4.77, Hemoglobin 10.1L, Hematocrit 34.9L, Mean Corpuscular Volume 73L, Mean Corpuscular Hemoglobin 21.1L, Mean Corpuscular Hemoglobin Concent 28.9L, Red Cell Distribution Width 34.8H, Platelet Count 351, Mean Platelet Volume 7.5, Neutrophils (%) (Auto) 75.9H, Lymphocytes (%) (Auto) 15.8L, Monocytes (%) (Auto) 5.7, Eosinophils (%) (Auto) 2.2, Basophils (%) (Auto) 0.5, Sodium Level 136, Potassium Level 4.1, Chloride Level 103, Carbon Dioxide Level 27, Anion Gap 6, Blood Urea Nitrogen 21H, Creatinine 0.6, Estimat Glomerular Filtration Rate > 60, Glucose Level 76, Calcium Level 8.0L Height (Feet): 5 Height (Inches): 1.00 Weight (Pounds): 155 General Appearance: lethargic EENT: TMs normal Neck: normal alignment Cardiovascular: normal rate, regular rhythm Respiratory/Chest: no respiratory distress, no accessory muscle use Extremities: normal inspection Skin: normal pigmentation Louis Irvin DO Jan 30, 2020 13:23
--- NOTE | 2020-01-30 13:31 | NUR ---
DISCHARGE PLANNING WAITING FOR OXYGEN DELIVERY [facility] T: [phone] F: [phone] THEY WILL BE DELIVERING BOTH PORTABLE AND CONCENTRATOR TO HOSPITAL Addendum: 01/30/20 at 1338 by BRANDY NEELY LVN LVN OXYGEN HAS BEEN DELIVERED
--- NOTE | 2020-01-30 13:55 | Nephrology Progress Note ---
Assessment/Plan Problem List: (1) Hypokalemia (2) Anemia Assessment: Iron deficiency (3) Suspected COVID-19 virus infection Assessment Hypokalemia, likely depletional Severe anemia, low iron Suspected COVID-19 infection Elevated inflammatory markers Plan Lab reviewed, Stable from renal standpoint to view. And not much has changed. Continue per consultants. Will monitor renal parameters and electrolytes. Continue per consultants. On Remdesivir and Decadron Change hypotonic solution to isotonic solution Potassium supplements IV iron Patient also transfused Continue per consultants Per orders Subjective ROS Limited/Unobtainable: No Objective Objective Last 24 Hour Vital Signs Date Time Temp Pulse Resp B/P (MAP) Pulse Ox O2 Delivery O2 Flow Rate FiO2 01/30/20 12:00 97.7 84 20 97/56 (70) 94 01/30/20 09:00 Nasal Cannula 2.0 01/30/20 08:00 97.9 76 20 98/57 (71) 94 01/30/20 04:00 96.8 60 16 102/65 (77) 94 01/30/20 00:00 97.7 68 16 99/59 (72) 98 01/29/20 21:32 Nasal Cannula 3.0 01/29/20 20:00 98.1 89 16 113/71 (85) 91 01/29/20 20:00 97 Nasal Cannula 3.0 32 01/29/20 16:30 79 01/29/20 16:00 97.3 75 20 97/47 (64) 93 Intake and Output 01/29/20 01/30/20 19:00 07:00 Intake Total 500 ml Balance 500 ml Intake Oral 500 ml # Voids 5 # Bowel Movements 1 Laboratory Tests 01/30/20 04:45: White Blood Count 13.5H, Red Blood Count 4.77, Hemoglobin 10.1L, Hematocrit 34.9L, Mean Corpuscular Volume 73L, Mean Corpuscular Hemoglobin 21.1L, Mean Corpuscular Hemoglobin Concent 28.9L, Red Cell Distribution Width 34.8H, Platelet Count 351, Mean Platelet Volume 7.5, Neutrophils (%) (Auto) 75.9H, Lymphocytes (%) (Auto) 15.8L, Monocytes (%) (Auto) 5.7, Eosinophils (%) (Auto) 2.2, Basophils (%) (Auto) 0.5, Sodium Level 136, Potassium Level 4.1, Chloride Level 103, Carbon Dioxide Level 27, Anion Gap 6, Blood Urea Nitrogen 21H, Creatinine 0.6, Estimat Glomerular Filtration Rate > 60, Glucose Level 76, Calcium Level 8.0L Height (Feet): 5 Height (Inches): 1.00 Weight (Pounds): 155 General Appearance: no apparent distress Objective No change Kristian Barry MD Jan 30, 2020 13:55
--- NOTE | 2020-01-30 14:03 | NUR ---
NURSE NOTES: Paged Dr. Fonseca to get clearance for discharge per Dr. Irvin's request.Awaiting for return call.
--- NOTE | 2020-01-30 14:39 | NUR ---
NURSE NOTES: Received call from Dr. Fonseca and patient is clear for discharge. Dr. Fonseca is aware of WBC of 13.5 with no new order.
--- NOTE | 2020-01-30 15:05 | NUR ---
NURSE NOTES: RN informed primary doctor Albaro and Dr. Pascual of [place] of 3.25 on 01/27/20. Dr. Pascual said patient is clear to be discharged and no anticoagulant upon discharge.
--- NOTE | 2020-01-30 15:09 | NUR ---
NURSE NOTES: Per patient, her ride will be here in one hour.
[2020-01-30 16:00] VITALS: BP 102/63
--- NOTE | 2020-01-30 16:40 | NUR ---
NURSE NOTES: Patient was discharged to home accompanied by her in stable condition via private car. Patient's v/S stable prior to discharge. discharge instruction given to the patient about home oxygen use, how to use, printed out home oxygen education and given. Patient fully understood how to use the oxygen,when to use. RN instructed patient to buy oxymetry and monitor her o2sat and keep o2sat >92% in room air and to wean off oxygen as tolerated. Patient is aware when to seek medical attention. Patient is aware of elevated D-dimer and instructed if patient experiences SOB,chest pain, faint,pain on calf, swelling on ex's, etc. All belongings accounted for,skin is intact, no s/s of infection on IV removal site. RN escorted patient to the car,patient brought her home oxygen and instructed patient about self isolation home.
[2020-01-30] MEDS ORDERED: IV Preparation Fee IV ONE (16:43)
--- NOTE | 2020-01-31 10:55 | NUR ---
*-* INSURANCE *-* UPDATED CLINICALS (NO D/C SUM IN SYSTEM) FAXED TO: [facility] REF # [id number] Cm:PRAVEEN PRICE P:[phone] F:[phone]
--- NOTE | 2020-02-01 15:41 | NUR ---
*-* NO DISCHARGE SUMMARY IN THE SYSTEM UNABLE TO SEND TO INS CO. *-*
--- NOTE | 2020-02-01 16:28 | Discharge Summary ---
Discharge Summary Discharge Summary _ DATE OF ADMISSION: 01/17/2020 DATE OF DISCHARGE: 01/30/2020 DISCHARGED BY: Dr Irvin REASON FOR ADMISSION: 39 years old female with no significant past medical history, presented to emergency department for evaluation due to fever, cough and generalized weakness for the last 4 days. Patient went to clinic prior and was told that she had a strep throat. Patient received antibiotics. Patient reported taking antibiotic, but was feeling worse. Patient reported productive cough with yellowish phlegm , no hemoptysis. Patient was febrile in triage. She reported shortness of breath. No chest pain. Upon evaluation patient was febrile , tachycardic , tachypneic, blood pressure was low 98/40 , pulse oximetry was stable on room air. Laboratory work-up revealed leukocytosis with WBC 14, hemoglobin 7.6, hematocrit 25.5 , platelet count 336. Sodium 131, potassium 3.4. BUN 8, creatinine 0.8. Glucose 104. AST 39, ALT 19. Albumin 3.3. D-dimer 0.72. CRP 42.6. LDH 586. Urinalysis revealed +3 ketones , no evidence of urinary tract infection. Chest x-ray demonstrated basilar infiltrates left greater than right. In the emergency department patient was swabbed for COVID-19. Patient pancultured, received IV fluids, typed and crossed, started on empiric antibiotic and admitted for further management. CONSULTANTS: pulmonary Dr. Ling ID specialist Dr. Yosef Bess GI specialist Dr. العراقي farmworker egg producing farm Dr. Barry metal bonding assembler/oncologist Dr. Pascual [facility] COURSE: Patient admitted and started on IV fluids and broad-spectrum antibiotics. Patient was kept in isolation. Blood cultures were negative. COVID-19 by PCR on 01/16 was detected. Patient received treatment with dexamethasone and Remdesivir . Supplemental oxygen provided and titrated to keep pulse oximetry above 92%. At some point patient required 100% nonrebreather mask . As patient clinically improved, patient able to be weaned down to simple mask and then to oxygen via nasal cannula. Pulmonary toilet provided. Antitussive provided as needed. Venous duplex bilateral lower extremity revealed no evidence of acute DVT. Follow-up D-dimer 4.8 and 3.25 subsequently. Patient received full anticoagulation with Lovenox. Leukocytosis increased slightly, likely due to steroids. Fevers resolved. As per cinder pitman, follow-up chest x-ray improved compared with the previous one. Hemoglobin and hematocrit were closely monitored with goal to keep hemoglobin above 7. The next day after admission hemoglobin down to 6.9. Patient undergone transfusion of 1 unit of packed red blood cells. Stamp Presser followed. Stool for occult blood x3 was negative. Anemia work-up was consistent with anemia of iron deficiency. Patient received IV iron for 5 days. No evidence of hemolysis. Hemoglobin and hematocrit were closely monitored with goal to keep hemoglobin above 7 , prior to discharge hemoglobin 10.1, hematocrit 34.9. Renal parameters and electrolytes were closely monitored. Electrolytes corrected as needed as per farmworker egg producing farm recommendation. Inflammatory markers were monitored. CRP trending down. Ferritin remained low. Supportive care provided. Repeated COVID-19 on 01/28 was still detected. Patient clinically improved and was ready for discharge home. FINAL DIAGNOSES: Acute hypoxemic respiratory failure, requiring nonrebreather mask - resolved Confirmed COVID-19 infection COVID-19 pneumonia Anemia of iron deficiency Elevated inflammatory markers Hypokalemia DISCHARGE MEDICATIONS: See Medication Reconciliation list. DISCHARGE INSTRUCTIONS: Patient was discharged home. Outpatient follow-up with a primary care provider. I have been assigned to dictate discharge summary for this account. I was not involved in the patient's management. Savana Gonzalez NP Feb 01, 2020 16:28
--- NOTE | 2020-02-02 10:12 | NUR ---
*-* INSURANCE *-* DSISCHARGE SUMMARY HAS BEEN FAXED TO: [facility] REF # [id number] Cm:PRAVEEN PRICE [phone] F:[phone]
== END 2020-01-30 16:44 | disposition home or self-care (01) | DRG 137 ==
LOC: EMR 21:09 → 4E 22:04 → EDBEDREQ 22:40 → 2W 01-21 15:10 → 2E 01-22 17:56 → 4E 01-29 19:15
PROC: 30233N1 Transfusion of Nonautologous Red Blood Cells into Peripheral Vein, Percutaneous Approach (ICD-10-PCS; principal; 2020-01-19)
DX: U07.1 COVID-19 (principal); J12.89 Other viral pneumonia; J96.01 Acute respiratory failure with hypoxia; E46 Unspecified protein-calorie malnutrition; D50.9 Iron deficiency anemia, unspecified; E87.6 Hypokalemia; R79.82 Elevated C-reactive protein (CRP)
CPT/HCPCS: 36415; 36600; 71045; 80048; 80053; 80076; 81003; 82270; 82607; 82728; 82746; 82803; 83540; 83550; 83605; 83615; 83735; 83880; 84100; 84484; 84550; 85007; 85025; 85379; 85610; 85730; 86140; 86850; 86900; 86901; 86920; 87040; 93970; 96361; 96365; 96368; 99285; J7030; J8499